=== PATIENT | female | born 1965 | race Caucasian/White ===

== ENCOUNTER → 2017-08-11 | Day surgery (SDC) | payer BC, MEDICARE ==
[~2017-08-11] MED LIST: AMBIEN PO; AMBIEN5 MG PO; CARAFATE; CLONIDINE HCL0.1 MG PO; COREG12.5 MG PO; COREG25 MG PO; CYMBALTA20 MG PO; CYMBALTA30 MG PO; DEXILANT60 MG; DIOVAN160 MG PO; FAMOTIDINE 20 MG/2 ML VIAL IV ONE; FENTANYL CITRATE/PF 100MCG/2 ML INJ ONE; FLEXERIL 10 MG; HYDROCODON-ACE1 EAC9; HYDROCODONE PO; KEFLEX500 MG; KENALOG-1010 MG/1 ML; LIDOCAINE HCL 2% LOCAL INJ 5 ML SDV VIAL INJ ONE; LIPITOR20 MG PO; LOSARTAN PO; LOSARTAN POTASS25 MG PO; LOSARTAN POTASS50 MG PO; METOCLOPRAMIDE HCL 10 MG/2ML VIAL ONE; MIDAZOLAM HCL 2 MG/2 ML VIAL ONE; NORCO 10-325 T1 EACH; NORCO 10-325 T1 EACH PO; OMEPRAZOLE40 MG PO; ONDANSETRON HCL INJ 2 MG/ML VIAL ONE; PANTOPRAZOLE SO40 MG PO; PHENERGAN PO; PHENERGAN25 MG/1 ML; PROMETHAZINE HC50 MG PO; PROPOFOL IV EMULSION 10 MG/ML 20 ML VIAL ONE; PROTONIX PO; PROZAC20 MG PO; SURFAK240 MG; TRICOR145 MG PO; ULTRAM50 MG PO; XANAX0.5 MG PO; XANAX1 MG PO; XANAX2 MG PO; Z.0.AMBIEN5 MG PO; Z.0.COREG6.25 MG PO; Z.0.CYMBALTA60 MG PO; Z.0.DESYREL50 MG PO; Z.0.DIOVAN80 MG PO; Z.0.LASIX20 MG; Z.0.TRICOR145 MG; Z.0.XANAX0.5 MG PO; Z.0.ZEGERID 20 MG1 E PO; ZEGERID; lipitor; losartan
--- OUTSIDE RECORDS SUMMARY | 2017-08-11 08:58 | XMS REPORT | Clinical Summary ---
Author Author [facility] Address Unknown Phone Unavailable Care Team Providers Care Agricultural Specialist Name Role Phone Sadiq Ray MD PCP Allergies Active Allergy Reactions Severity Noted Date Comments Aspirin 04/20/2017 Gabapentin 04/20/2017 Ziprasidone Hcl 04/20/2017 Morphine 04/20/2017 Butorphanol Tartrate 04/20/2017 Ketorolac 04/20/2017 Tramadol 04/20/2017 Current Medications Prescription Sig. Disp. Refills Start End Date Status Date carvedilol (COREG) 25 MG Take 25 mg by mouth 2 Active tablet (two) times a day with meals. omeprazole (PriLOSEC) 40 Take 40 mg by mouth Active MG capsule daily. losartan (COZAAR) 25 MG TK 1 T PO TID 0 02/26/20 Active tablet 17 DULoxetine (CYMBALTA) 60 Take 60 mg by mouth Active MG capsule daily. HYDROcodone-acetaminophen TK 1 T PO Q 8 TO 12 H 0 04/16/20 Active (NORCO) 10-325 mg per PRN P 17 tablet mometasone (NASONEX) 50 2 sprays into each 17 g 12 04/27/20 Active mcg/actuation nasal nostril daily. 17 18 sprayIndications: Chronic otitis media of both ears, Ear pain, right, Chronic seasonal allergic rhinitis, unspecified trigger ciprofloxacin-dexamethaso Administer 4 drops to the 7.5 mL 1 04/20/20 04/30/20 ne (CIPRODEX) 0.3-0.1 % right ear 2 (two) times a 17 17 otic day for 10 days. suspensionIndications: Ear pain, right, Chronic otitis media of both ears Active Problems Problem Noted Date Chronic seasonal allergic rhinitis 04/27/2017 Ear pain, right 04/20/2017 Chronic otitis media of both ears 04/20/2017 Encounters Date Type Specialty Care Team Description 04/27/2017 Office Visit Otolaryngology Arnoldo Corley MD Chronic otitis media of both ears (Primary Dx);Ear pain, right;Chronic seasonal allergic rhinitis, unspecified trigger;Mixed hearing loss, bilateral 04/20/2017 Office Visit Otolaryngology Arnoldo Corley MD Ear pain, right (Primary Dx);Chronic otitis media of both ears after 08/10/2016 Social History Tobacco Use Types Packs/Day Years Used Date Current Every Day Smoker Alcohol Use Drinks/Week oz/Week Comments No Sex Assigned at Date Recorded Not on file Last Filed Vital Signs Vital Sign Reading Time Taken Blood Pressure 120/88 04/27/2017 2:00 PM CDT Pulse 84 04/27/2017 2:00 PM CDT Temperature - - Respiratory Rate - - Oxygen Saturation - - Inhaled Oxygen - - Concentration Weight 122 kg (270 lb) 04/27/2017 2:00 PM CDT Height 177.8 cm (5' 10") 04/27/2017 2:00 PM CDT Body Mass Index 38.74 04/27/2017 2:00 PM CDT Plan of Treatment Health Maintenance Due Date Last Done Comments PAP SMEAR 11/12/1987 COLONOSCOPY 2016 MAMMOGRAM 2016 INFLUENZA VACCINE 02/02/2017 Results Not on fileafter 08/10/2016 Insurance Payer Benefit Subscriber ID Type Phone Address Plan / Group BCBS BCBS [id number] PPO CHOICE PPO/DEJON NESBITT PPO MEDICARE MEDICARE [id number] Medicare [place], [place] [address]
[2017-08-11 10:21] LABS: BASOPHILS % 0.6 % (0.0-1.0); EOSINOPHILS # (AUTO) 0.2 (0.0-0.4); EOSINOPHILS % 2.4 % (0.0-6.0); HEMATOCRIT 43.2 % (34.2-44.1); HEMOGLOBIN 14.4 g/dL (12.0-16.0); LYMPHOCYTES # (AUTO) 1.8 (1.0-3.2); LYMPHOCYTES % 26.8 % (18.0-39.1); MEAN CORPUSCULAR HEMOGLOBIN 28.3 pg (28-32); MEAN CORPUSCULAR HGB CONC 33.3 g/dL (31-35); MEAN CORPUSCULAR VOLUME 84.9 fL (81-99); MONOCYTES # (AUTO) 0.5 (0.2-0.8); MONOCYTES % 7.5 % (4.4-11.3); NEUTROPHILS # (AUTO) 4.2 (2.1-6.9); NEUTROPHILS % 62.3 % (38.7-80.0); PLATELET COUNT 75 x10e3/uL (140-360); RED BLOOD COUNT 5.09 x10e6/uL (3.6-5.1); RED CELL DISTRIBUTION WIDTH 13.1 % (11.7-14.4)
[2017-08-11 10:33] LABS: ANION GAP 12.8 mmol/L (8-16); CALCIUM 8.7 mg/dL (8.4-10.2); CREATININE, SERUM 1.02 mg/dL (0.57-1.11); POTASSIUM 3.8 mmol/L (3.5-5.1)
== END | disposition home or self-care (01) ==
LOC: OR 08:55
PROVIDERS: ATTEND Surgery
DX: K29.70 Gastritis, unspecified, without bleeding (principal); K21.9 Gastro-esophageal reflux disease without esophagitis; E66.01 Morbid (severe) obesity due to excess calories; I10 Essential (primary) hypertension; I69.851 Hemiplegia and hemiparesis following other cerebrovascular disease affecting right dominant side; G89.29 Other chronic pain; F32.9 Major depressive disorder, single episode, unspecified; F41.9 Anxiety disorder, unspecified
CPT/HCPCS: 36415; 43235; 80048; 85025; 93005; J2001; J2250; J2405; J2765; 43239

== ENCOUNTER → 2017-11-25 | Day surgery (SDC) | payer BC, MEDICARE ==
[2017-11-24 12:36] LABS: BASOPHILS # (AUTO) 0.1 (0.0-0.1); BASOPHILS % 0.7 % (0.0-1.0); EOSINOPHILS # (AUTO) 0.2 (0.0-0.4); EOSINOPHILS % 2.4 % (0.0-6.0); HEMATOCRIT 45.8 % (34.2-44.1); HEMOGLOBIN 14.9 g/dL (12.0-16.0); LYMPHOCYTES # (AUTO) 2.5 (1.0-3.2); LYMPHOCYTES % 29.2 % (18.0-39.1); MEAN CORPUSCULAR HEMOGLOBIN 27.3 pg (28-32); MEAN CORPUSCULAR HGB CONC 32.5 g/dL (31-35); MEAN CORPUSCULAR VOLUME 83.9 fL (81-99); MONOCYTES # (AUTO) 0.7 (0.2-0.8); MONOCYTES % 7.9 % (4.4-11.3); NEUTROPHILS # (AUTO) 5.1 (2.1-6.9); NEUTROPHILS % 59.3 % (38.7-80.0); PLATELET COUNT 94 x10e3/uL (140-360); RED BLOOD COUNT 5.46 x10e6/uL (3.6-5.1); RED CELL DISTRIBUTION WIDTH 13.8 % (11.7-14.4)
[2017-11-24 13:19] LABS: ALANINE AMINOTRANSFERASE < 6 IU/L (0-55); ALBUMIN 3.5 g/dL (3.5-5.0); ALBUMIN/GLOBULIN RATIO 1.1 (0.8-2.0); ALKALINE PHOSPHATASE 63 IU/L (40-150); ANION GAP 11.3 mmol/L (8-16); BLOOD UREA NITROGEN 9 mg/dL (7-26); BUN/CREATININE RATIO 8 (6-25); CALCIUM 9.2 mg/dL (8.4-10.2); CARBON DIOXIDE 27 mmol/L (22-29); CHLORIDE 105 mmol/L (98-107); CREATININE, SERUM 1.11 mg/dL (0.57-1.11); EST GLOMERULAR FILTRATION RATE 52 ML/MIN (60-); GLUCOSE 82 mg/dL (74-118); POTASSIUM 4.3 mmol/L (3.5-5.1); SODIUM 139 mmol/L (136-145)
[2017-11-24 13:20] LABS: PROTHROMBIN TIME 12.4 seconds (11.9-14.5)
[~2017-11-25] MED LIST changes: -FAMOTIDINE 20 MG/2 ML VIAL IV ONE; +LACTATED RINGER'S 1,000 ML ONE; -LIDOCAINE HCL 2% LOCAL INJ 5 ML SDV VIAL INJ ONE; -METOCLOPRAMIDE HCL 10 MG/2ML VIAL ONE; -ONDANSETRON HCL INJ 2 MG/ML VIAL ONE; +PROMETHAZINE HCL (IM) 25 MG/ML VIAL ONE; +SODIUM CHLORIDE 0.9% 50ML 50 ML ONE
[2017-11-25 06:21] LABS: BASOPHILS % 0.7 % (0.0-1.0); EOSINOPHILS # (AUTO) 0.1 (0.0-0.4); EOSINOPHILS % 2.4 % (0.0-6.0); HEMATOCRIT 41.2 % (34.2-44.1); HEMOGLOBIN 13.7 g/dL (12.0-16.0); MEAN CORPUSCULAR HEMOGLOBIN 27.9 pg (28-32); MEAN CORPUSCULAR HGB CONC 33.3 g/dL (31-35); MEAN CORPUSCULAR VOLUME 83.9 fL (81-99); MONOCYTES # (AUTO) 0.4 (0.2-0.8); MONOCYTES % 7.7 % (4.4-11.3); NEUTROPHILS # (AUTO) 3.1 (2.1-6.9); NEUTROPHILS % 53.3 % (38.7-80.0); PLATELET COUNT 76 x10e3/uL (140-360); RED BLOOD COUNT 4.91 x10e6/uL (3.6-5.1); RED CELL DISTRIBUTION WIDTH 13.6 % (11.7-14.4)
--- OUTSIDE RECORDS SUMMARY | 2017-11-25 06:45 | XMS REPORT | Clinical Summary ---
Author Author [facility] Organization [facility] Address Unknown Phone Unavailable Care Team Providers Care Production Line Manager Name Role Phone Sadiq Ray MD PCP [...] Chronic otitis media of both ears (Primary Dx); Ear pain, right; Chronic seasonal allergic rhinitis, unspecified trigger; Mixed hearing loss, bilateral 04/20/2017 Office Visit Otolaryngology Arnoldo Corley MD Ear pain, right (Primary Dx); Chronic otitis media of both ears after 11/24/2016 Social History Tobacco Use Types Packs/Day Years [...] Health Maintenance Due Date Last Done Comments CERVICAL CANCER SCREENING 11/12/1987 BREAST CANCER SCREENING 2016 COLON CANCER SCREENING 2016 SHINGRIX VACCINE (#1) 2016 INFLUENZA VACCINE 02/02/2018 Results Not on fileafter 11/24/2016 Insurance Payer Benefit Subscriber ID Type Phone Address Plan / Group BCBS BCBS xxxxxxxxxxxx PPO CHOICE PPO/DEJON [place] EM[employer] PPO MEDICARE MEDICARE xxxxxxxxxx Medicare [place], [place] [address]
== END | disposition home or self-care (01) ==
LOC: OR 06:43
PROVIDERS: ATTEND Internal Medicine Gastroenterology
DX: K21.0 Gastro-esophageal reflux disease with esophagitis (principal); K29.50 Unspecified chronic gastritis without bleeding; K44.9 Diaphragmatic hernia without obstruction or gangrene; K58.9 Irritable bowel syndrome, unspecified; I10 Essential (primary) hypertension; E66.9 Obesity, unspecified; E78.5 Hyperlipidemia, unspecified; G43.909 Migraine, unspecified, not intractable, without status migrainosus; G89.29 Other chronic pain; F32.9 Major depressive disorder, single episode, unspecified; F17.200 Nicotine dependence, unspecified, uncomplicated; F41.9 Anxiety disorder, unspecified; Z88.6 Allergy status to analgesic agent; Z88.8 Allergy status to other drugs, medicaments and biological substances; Z88.5 Allergy status to narcotic agent; Z01.810 Encounter for preprocedural cardiovascular examination; Z01.812 Encounter for preprocedural laboratory examination; Z68.38 Body mass index [BMI] 38.0-38.9, adult; Z87.01 Personal history of pneumonia (recurrent); Z86.73 Personal history of transient ischemic attack (TIA), and cerebral infarction without residual deficits; Z80.0 Family history of malignant neoplasm of digestive organs
CPT/HCPCS: 36415 ×2; 43239; 43249; 80053; 85025 ×2; 85610; 85730; 93005; J2250; J2550; J7120

== ENCOUNTER → 2018-02-17 | Day surgery (SDC) | payer BC, MEDICARE ==
[~2018-02-17] MED LIST changes: +BUPIVACAINE 0.25% 30ML SDV INJ ONE; +IOPAMIDOL 200 MG/ML 20 ML VIAL IT ONE; -LACTATED RINGER'S 1,000 ML ONE; +LIDOCAINE HCL 2% LOCAL INJ 5 ML SDV VIAL INJ ONE; +ONDANSETRON HCL INJ 2 MG/ML VIAL ONE; -PROMETHAZINE HCL (IM) 25 MG/ML VIAL ONE; -SODIUM CHLORIDE 0.9% 50ML 50 ML ONE; +TRIAMCINOLONE ACET 40 MG/ML VIAL ONE
[2018-02-17 06:44] LABS: BASOPHILS # (AUTO) 0.1 (0.0-0.1); BASOPHILS % 0.8 % (0.0-1.0); EOSINOPHILS # (AUTO) 0.2 (0.0-0.4); EOSINOPHILS % 3.2 % (0.0-6.0); HEMATOCRIT 44.8 % (34.2-44.1); HEMOGLOBIN 14.9 g/dL (12.0-16.0); LYMPHOCYTES # (AUTO) 2.1 (1.0-3.2); LYMPHOCYTES % 31.4 % (18.0-39.1); MEAN CORPUSCULAR HEMOGLOBIN 28.1 pg (28-32); MEAN CORPUSCULAR HGB CONC 33.3 g/dL (31-35); MEAN CORPUSCULAR VOLUME 84.4 fL (81-99); MONOCYTES # (AUTO) 0.6 (0.2-0.8); MONOCYTES % 9.3 % (4.4-11.3); NEUTROPHILS # (AUTO) 3.6 (2.1-6.9); NEUTROPHILS % 54.7 % (38.7-80.0); PLATELET COUNT 84 x10e3/uL (140-360); RED BLOOD COUNT 5.31 x10e6/uL (3.6-5.1)
== END | disposition home or self-care (01) ==
LOC: OR 06:11
PROVIDERS: ATTEND Physical Medicine & Rehabilitation Pain Medicine
DX: M70.62 Trochanteric bursitis, left hip (principal); M54.16 Radiculopathy, lumbar region; M54.81 Occipital neuralgia; M19.90 Unspecified osteoarthritis, unspecified site; I10 Essential (primary) hypertension; I34.1 Nonrheumatic mitral (valve) prolapse; E78.5 Hyperlipidemia, unspecified; K25.9 Gastric ulcer, unspecified as acute or chronic, without hemorrhage or perforation; K44.9 Diaphragmatic hernia without obstruction or gangrene; K21.9 Gastro-esophageal reflux disease without esophagitis; K58.9 Irritable bowel syndrome, unspecified; F32.9 Major depressive disorder, single episode, unspecified; F41.9 Anxiety disorder, unspecified; F17.210 Nicotine dependence, cigarettes, uncomplicated; Z88.6 Allergy status to analgesic agent; Z88.8 Allergy status to other drugs, medicaments and biological substances; Z86.73 Personal history of transient ischemic attack (TIA), and cerebral infarction without residual deficits; E66.9 Obesity, unspecified; Z68.34 Body mass index [BMI] 34.0-34.9, adult; Z85.3 Personal history of malignant neoplasm of breast; Z91.81 History of falling
CPT/HCPCS: 20610; 36415; 77002; 85025; J2001; J2250; J2405; J3301; Q9966

== ENCOUNTER → 2018-04-05 | Outpatient (CLI) | payer BC, MEDICARE ==
[~2018-04-05] MED LIST changes: -BUPIVACAINE 0.25% 30ML SDV INJ ONE; -FENTANYL CITRATE/PF 100MCG/2 ML INJ ONE; -IOPAMIDOL 200 MG/ML 20 ML VIAL IT ONE; -LIDOCAINE HCL 2% LOCAL INJ 5 ML SDV VIAL INJ ONE; -MIDAZOLAM HCL 2 MG/2 ML VIAL ONE; -ONDANSETRON HCL INJ 2 MG/ML VIAL ONE; -PROPOFOL IV EMULSION 10 MG/ML 20 ML VIAL ONE; -TRIAMCINOLONE ACET 40 MG/ML VIAL ONE
--- NOTE | 2018-04-05 10:43 | Diagnostic Imaging Report ---
EXAMINATION: MRI of the lumbar spine without contrast HISTORY: Low back pain, status post fall 3 days ago COMPARISON: None. TECHNIQUE: Sagittal T1, T2, STIR; axial T2 and proton density. FINDINGS: It is assumed that there are 5 lumbar vertebrae. Curvature/Alignment: Normal lordosis. Vertebrae: No evidence of recent fracture, infection, or neoplasm. Conus: Normal, terminating at T12-L1 Cauda equina: Unremarkable. Lower thoracic: Unremarkable. Paraspinal soft tissues: Unremarkable. Degenerative changes: L1-L2: Unremarkable. L2-L3: Mild asymmetric to the left disc bulge with tiny 2 mm AP diameter left subarticular disc protrusion and facet arthrosis. Partial effacement of the left lateral recess and possible displacement of the traversing left L3 nerve root without definite compression. L3-L4: Symmetric disc bulge with a small 3 mm AP diameter central disc protrusion, ligamenta flava thickening and facet arthrosis. Mild spinal canal and moderate foraminal stenoses. L4-L5: Asymmetric to the left disc bulge, approximately 5 mm AP diameter central and left subarticular disc protrusion flattens the ventral thecal sac and effaces the left lateral recess, with probable displacement of the traversing left L5 nerve root. Bilateral facet arthrosis. Moderate left and mild right foraminal stenosis. L5-S1: Mild symmetric disc bulge, ligamenta flava thickening and moderate facet arthrosis. Mild spinal canal and moderate foraminal stenoses worse on the right. Sacroiliac joints: Unremarkable. IMPRESSION: 1. No acute lumbar spine posttraumatic abnormalities. 2. Effacement of the left lateral recess at L2-L3 and L4-L5 due to degenerative changes and small disc protrusion. 3. Mild spinal canal and moderate foraminal stenoses at L3-L4 as described. 4. Moderate degenerative foraminal stenosis on the left at L4-L5 and bilaterally at L5-S1. Signed by: Dr. Dianelsy Patel M.D. on 04/05/2018 10:40 AM
--- NOTE | 2018-04-05 15:17 | Diagnostic Imaging Report ---
MRI of the left hip without contrast. History: Hip pain. Fall. Decreased range of motion. Technique: Multiplanar multisequence MRI of the hip without contrast. Comparison: None Findings: There is no acute fracture, subluxation or avascular necrosis. Scattered degenerative changes are seen about the visualized lower lumbar spine and pelvis. There is mild degenerative arthrosis in the left hip joint with thinning of the articular cartilage at the superior lateral acetabulum and adjacent femoral head. There is degeneration and fraying of the labrum. There is a physiologic amount of fluid in the hip joint. The remainder the visualized ligaments and tendons about the hip are intact. There is no evidence to suggest greater trochanteric bursitis. The visualized muscles are normal in size, signal intensity and morphology. No ligamentous or tendon tear is seen. The visualized neurovascular bundles are intact. There may be a left ovary in the left upper pelvis with possible follicles. This is best seen on coronal series 3 image 18 through 22. Correlate with surgical history. 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 No acute fracture, subluxation or avascular necrosis. Signed by: Dr. Mango Price M.D. on 04/05/2018 3:14 PM
== END ==
LOC: MRI 07:46
PROVIDERS: ATTEND Family Medicine
DX: M25.552 Pain in left hip (principal); M54.07 Panniculitis affecting regions of neck and back, lumbosacral region
CPT/HCPCS: 72148

== ENCOUNTER → 2018-07-28 | Day surgery (SDC) | payer BC, MEDICARE ==
[~2018-07-28] MED LIST changes: +BUPIVACAINE 0.25% 30ML SDV INJ ONE; +IOPAMIDOL 200 MG/ML 20 ML VIAL IT ONE; +LIDOCAINE HCL 1% 30ML-PF VIAL ONE; +PROPOFOL IV EMULSION 10 MG/ML 20 ML VIAL ONE; +TRIAMCINOLONE ACET 40 MG/ML VIAL ONE
--- OUTSIDE RECORDS SUMMARY | 2018-07-28 06:02 | XMS REPORT | Clinical Summary ---
Author Author [facility] Organization [facility] Address Unknown Phone Unavailable Care Team Providers Care Precision Instrument And Tool Maker Name Role Phone Sadiq Ray MD PCP Allergies Comments Active Allergy Reactions Severity Noted Date Aspirin 04/20/2017 Gabapentin 04/20/2017 Ziprasidone Hcl 04/20/2017 Morphine 04/20/2017 Butorphanol Tartrate 04/20/2017 Ketorolac 04/20/2017 Tramadol 04/20/2017 Medications End Date Status Medication Sig Dispensed Refills Start Date Active carvedilol (COREG) 25 MG Take 25 mg by 0 tablet mouth 2 (two) times a day with meals. Active omeprazole (PriLOSEC) 40 Take 40 mg by 0 MG capsule mouth daily. Active losartan (COZAAR) 25 MG TK 1 T PO TID 0 tablet 7 Active DULoxetine (CYMBALTA) 60 Take 60 mg by 0 MG capsule mouth daily. Active HYDROcodone-acetaminophen TK 1 T PO Q 0 (NORCO) 10-325 mg per 8 TO 12 H PRN 7 tablet P 04/27/2018 mometasone (NASONEX) 50 2 sprays into 17 g 12 mcg/actuation nasal each nostril 7 sprayIndications: Chronic daily. otitis media of both ears, Ear pain, right, Chronic seasonal allergic rhinitis, unspecified trigger Active Problems Problem Noted Date Chronic seasonal allergic rhinitis 04/27/2017 Ear pain, right 04/20/2017 Chronic otitis media of both ears 04/20/2017 Social History Date Tobacco Use Types Packs/Day Years Used Current Every Day Smoker Alcohol Use Drinks/Week oz/Week Comments No Sex Assigned at Date Recorded Not on file Industry Job Start Date Occupation Not on file Not on file Not on file Travel End Travel History Travel Start No recent travel history available. Last Filed Vital Signs Not on file Plan of Treatment Health Maintenance Due Date Last Done Comments CERVICAL CANCER SCREENING 11/12/1987 BREAST CANCER SCREENING 2016 COLON CANCER SCREENING 2016 SHINGLES VACCINES (1 of 2016 2) INFLUENZA VACCINE 02/02/2018 Results Not on fileafter 07/27/2017 Insurance Payer Benefit Subscriber ID Type Phone Address Plan / Group BCBS BCBS xxxxxxxxxxxx PPO CHOICE PPO/FEDERA L EMPL PPO MEDICARE MEDICARE xxxxxxxxxx Medicare [place], [place] PART A AND B Advance Directives Patient has advance care planning documents on file. For more information, j luis grace contact: Usman Muhammad [address] [place] [address]
--- OUTSIDE RECORDS SUMMARY | 2018-07-28 06:02 | XMS REPORT ---
Author Author [facility] Address Unknown Phone Unavailable Care Team Providers Care Dairy Department Manager Name Role Phone Urvashi BENITES JUJU Unavailable Unavailable Payers Payer Name Policy Type Policy Number Effective Date Expiration Date Problems This patient has no known problems. Allergies, Adverse Reactions, Alerts Allergy Name Allergy Type Status Severity Reaction(s) Onset Date Inactive Date Treating Clinician Comments amitriptyline HCl DA Active LA 2018-04-12 00:00:00 ketorolac tromethamine DA Active LA 2018-04-12 00:00:00 ziprasidone mesylate DA Active SV 2018-04-12 00:00:00 NSAIDS (Non-Steroidal Anti-Inflamma DA Active SV 2018-04-12 00:00:00 morphine DA Active SV 2018-04-12 00:00:00 aspirin DA Active SV 2018-04-12 00:00:00 tramadol DA Active MO 2018-04-12 00:00:00 butorphanol DA Active U 2018-04-12 00:00:00 amitriptyline HCl DA Active LA 2018-04-03 00:00:00 ketorolac tromethamine DA Active LA 2018-04-03 00:00:00 ziprasidone mesylate DA Active SV 2018-04-03 00:00:00 NSAIDS (Non-Steroidal Anti-Inflamma DA Active SV 2018-04-03 00:00:00 morphine DA Active SV 2018-04-03 00:00:00 aspirin DA Active SV 2018-04-03 00:00:00 tramadol DA Active MO 2018-04-03 00:00:00 butorphanol DA Active U 2018-04-03 00:00:00 amitriptyline HCl DA Active LA 2016-12-16 00:00:00 ketorolac tromethamine DA Active LA 2016-12-16 00:00:00 ziprasidone mesylate DA Active SV 2016-12-16 00:00:00 NSAIDS (Non-Steroidal Anti-Inflamma DA Active SV 2016-12-16 00:00:00 morphine DA Active SV 2016-12-16 00:00:00 aspirin DA Active SV 2016-12-16 00:00:00 tramadol DA Active MO 2016-12-16 00:00:00 butorphanol DA Active U 2016-12-16 00:00:00 Medications This patient has no known medications. Results Test Description Test Time Test Comments Text Results Atomic Results Result Comments MRI HIP LEFT WO 2018-04-05 15:08:00 [place] [address] Patient Name: AVIVA ASHBY MR #: [id number] : 1965 Age/Sex: 52/F Req #: [id number] Adm Physician: Ordered by: JUJU BENITES MD Report #: [id number] Location: MRI Room/Bed: Procedure: [id number] MRI/MRI HIP LEFT WO Exam Date: Exam Time: REPORT STATUS: Signed MRI of the left hip without contrast. History: Hip pain. Fall. Decreased range of motion. Technique: Multiplanar multisequence MRI of the hip without contrast. Comparison: None Findings: There is no acute fracture, subluxation or avascular necrosis. Scattered degenerative changes are seen about the visualized lower lumbar spine and pelvis. There is mild degenerative arthrosis in the left hip joint with thinning of the articular cartilage at the superior lateral acetabulum and adjacent femoral head. There is degeneration and fraying of the labrum. There is a physiologic amount of fluid in the hip joint. The remainder the visualized ligaments and tendons about the hip are intact. There is no evidence to suggest greater trochanteric bursitis. The visualized muscles are normal in size, signal intensity and morphology. No ligamentous or tendon tear is seen. The visualized neurovascular bundles are intact. There may be a left ovary in the left upper pelvis with possible follicles. This is best seen on coronal series 3 image 18 through 22. Correlate with surgical history. 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 No acute fracture, subluxation or avascular necrosis. Signed by: Dr. Mango Price M.D. on 04/05/2018 3:14 PM Dictated By: MANGO PRICE MD, MD 13 Transcribed By: VIKRAM on 04/05/181 COPY TO: JUJU BENITES MD MRI SPINE LUMBAR WO 2018-04-05 10:33:00 [place] [address] Patient Name: AVIVA ASHBY MR #: [id number] : 1965 Age/Sex: 52/F Req #: [id number] Adm Physician: Ordered by: JUJU BENITES MD Report #: [id number] Location: MRI Room/Bed: Procedure: [id number] MRI/MRI SPINE LUMBAR WO Exam Date: Exam Time: REPORT STATUS: Signed EXAMINATION: MRI of the lumbar spine without contrast HISTORY: Low back pain, status post fall 3 days ago COMPARISON: None. TECHNIQUE: Sagittal T1, T2, STIR; axial T2 and proton density. FINDINGS: It is assumed that there are 5 lumbar vertebrae. Curvature/Alignment: Normal lordosis. Vertebrae: No evidence of recent fracture, infection, or neoplasm. Conus: Normal, terminating at T12-L1 Cauda equina: Unremarkable. Lower thoracic: Unremarkable. Paraspinal soft tissues: Unremarkable. Degenerative changes: L1-L2: Unremarkable. L2-L3: Mild asymmetric to the left disc bulge with tiny 2 mm AP diameter left subarticular disc protrusion and facet arthrosis. Partial effacement of the left lateral recess and possible displacement of the traversing left L3 nerve root without definite compression. L3-L4: Symmetric disc bulge with a small 3 mm AP diameter central disc protrusion, ligamenta flava thickening and facet arthrosis. Mild spinal canal and moderate foraminal stenoses. L4-L5: Asymmetric to the left disc bulge, approximately 5 mm AP diameter central and left subarticular disc protrusion flattens the ventral thecal sac and effaces the left lateral recess, with probable displacement of the traversing left L5 nerve root. Bilateral facet arthrosis. Moderate left and mild right foraminal stenosis. L5-S1: Mild symmetric disc bulge, ligamenta flava thickening and moderate facet arthrosis. Mild spinal canal and moderate foraminal stenoses worse on the right. Sacroiliac joints: Unremarkable. IMPRESSION: 1. No acute lumbar spine posttraumatic abnormalities. 2. Effacement of the left lateral recess at L2-L3 and L4-L5 due to degenerative changes and small disc protrusion. 3. Mild spinal canal and moderate foraminal stenoses at L3-L4 as described. 4. Moderate degenerative foraminal stenosis on the left at L4-L5 and bilaterally at L5-S1. Signed by: Dr. Luis Patel M.D. on 04/05/2018 10:40 AM Dictated By: LUIS PATEL MD [id number] Transcribed By: VIKRAM on 04/05/18 1040 COPY TO: JUJU BENITES MD
[2018-07-28 07:16] LABS: BASOPHILS # (AUTO) 0.1 (0.0-0.1); BASOPHILS % 0.8 % (0.0-1.0); EOSINOPHILS # (AUTO) 0.2 (0.0-0.4); LYMPHOCYTES # (AUTO) 2.4 (1.0-3.2); LYMPHOCYTES % 30.7 % (18.0-39.1); MEAN CORPUSCULAR HEMOGLOBIN 28.5 pg (28-32); MEAN CORPUSCULAR HGB CONC 33.3 g/dL (31-35); MEAN CORPUSCULAR VOLUME 85.6 fL (81-99); MONOCYTES # (AUTO) 0.7 (0.2-0.8); MONOCYTES % 8.7 % (4.4-11.3); NEUTROPHILS # (AUTO) 4.4 (2.1-6.9); NEUTROPHILS % 56.3 % (38.7-80.0); PLATELET COUNT 89 x10e3/uL (140-360); RED BLOOD COUNT 5.26 x10e6/uL (3.6-5.1); RED CELL DISTRIBUTION WIDTH 13.1 % (11.7-14.4)
[2018-07-28 08:46] VITALS: BP 101/66
== END | disposition home or self-care (01) ==
LOC: OR 05:58
PROVIDERS: ATTEND Physical Medicine & Rehabilitation Pain Medicine
DX: M70.62 Trochanteric bursitis, left hip (principal); M47.26 Other spondylosis with radiculopathy, lumbar region; M54.81 Occipital neuralgia; I10 Essential (primary) hypertension; F17.210 Nicotine dependence, cigarettes, uncomplicated; Z88.6 Allergy status to analgesic agent; Z88.8 Allergy status to other drugs, medicaments and biological substances; Z86.73 Personal history of transient ischemic attack (TIA), and cerebral infarction without residual deficits; Z85.3 Personal history of malignant neoplasm of breast; Z91.81 History of falling
CPT/HCPCS: 20610; 36415; 85025; 93005; J2001; J2704; J3301; Q9967

== ENCOUNTER → 2018-11-22 | Outpatient (CLI) | payer BC, MEDICARE ==
[~2018-11-22] MED LIST changes: -BUPIVACAINE 0.25% 30ML SDV INJ ONE; -IOPAMIDOL 200 MG/ML 20 ML VIAL IT ONE; -LIDOCAINE HCL 1% 30ML-PF VIAL ONE; -PROPOFOL IV EMULSION 10 MG/ML 20 ML VIAL ONE; -TRIAMCINOLONE ACET 40 MG/ML VIAL ONE
== END ==
LOC: MAMMO 13:52
PROVIDERS: ATTEND Obstetrics & Gynecology
DX: Z12.31 Encounter for screening mammogram for malignant neoplasm of breast (principal)
CPT/HCPCS: 77067

== ENCOUNTER → 2018-11-24 | Outpatient (CLI) | payer BC, MEDICARE ==
--- NOTE | 2018-11-25 07:08 | Diagnostic Imaging Report ---
EXAMINATION: Transvaginal ultrasound. CLINICAL INDICATION: Enlarged ovary COMPARISON: CT abdomen and pelvis with contrast 08/06/2015 DISCUSSION: Transverse and sagittal transvaginal images were obtained of the pelvis with supplemental transabdominal images. The uterus has been removed. The right ovary is not identified. The left ovary is normal in size and measures 2.8 x 2 x 2.3 cm. Arterial and venous waveforms are identified by color Doppler and spectral waveform analysis. No free fluid or pelvic masses are seen. IMPRESSION: Status post hysterectomy with nonvisualization of the right ovary, possibly due to concomitant oophorectomy. Unremarkable sonographic appearance of the left ovary. Signed by: Dr. Fly Lewis M.D. on 11/25/2018 7:05 AM
== END ==
LOC: US 16:31
PROVIDERS: ATTEND Surgery
DX: R10.2 Pelvic and perineal pain (principal); N83.8 Other noninflammatory disorders of ovary, fallopian tube and broad ligament
CPT/HCPCS: 76830

== ENCOUNTER → 2018-12-01 | Day surgery (SDC) | payer BC, MEDICARE ==
[~2018-12-01] MED LIST changes: +DEXAMETHASONE SOD PHOS 10 MG/1 ML VIAL ONE; +FENTANYL CITRATE/PF 100MCG/2 ML INJ ONE; +IOPAMIDOL 200 MG/ML 20 ML VIAL IT ONE; +LIDOCAINE HCL 1% 30ML-PF VIAL ONE; +LIDOCAINE HCL 2% LOCAL INJ 5 ML SDV VIAL INJ ONE; +MIDAZOLAM HCL 2 MG/2 ML VIAL ONE; +ONDANSETRON HCL INJ 2MG/ML 2ML 2 MG/ML VIAL ONE; +PROPOFOL IV EMULSION 10 MG/ML 20 ML VIAL ONE
--- OUTSIDE RECORDS SUMMARY | 2018-12-01 05:20 | XMS REPORT | Clinical Summary ---
Author Author [facility] Address Unknown Phone Unavailable Care Team Providers Care Roads Supervisor Name Role Phone Sadiq Ray MD PCP [...] right, Chronic seasonal allergic rhinitis, unspecified trigger 10/26/2018 ofloxacin (FLOXIN) 0.3 % Administer 5 10 mL 0 otic solution drops into 9 the left ear daily for 7 days. Active Problems Problem Noted Date Chronic seasonal allergic rhinitis 04/27/2017 Ear pain, right 04/20/2017 Chronic otitis media of both ears 04/20/2017 Encounters Care Team Description Date Type Specialty Arnoldo Corley MD Ear pain, right (Primary Dx); Chronic otitis media of both ears 10/19/2018 Office Visit Otolaryngology after 11/30/2017 Social History Date Tobacco Use Types Packs/Day Years Used Current Every Day Smoker Smokeless Tobacco: Never Used Alcohol Use Drinks/Week oz/Week Comments No Sex Assigned at Date Recorded Not on file Industry Job Start Date Occupation Not on file Not on file Not on file Travel End Travel History Travel Start No recent travel history available. Last Filed Vital Signs Time Taken Vital Sign Reading - Blood Pressure - - Pulse - - Temperature - - Respiratory Rate - - Oxygen Saturation - - Inhaled Oxygen - Concentration 10/19/2018 3:15 PM CDT Weight 128 kg (283 lb) 10/19/2018 3:15 PM CDT Height 177.8 cm (5' 10") 10/19/2018 3:15 PM CDT Body Mass Index 40.61 Plan of Treatment Health Maintenance Due Date Last Done Comments BREAST CANCER SCREENING 2016 COLON CANCER SCREENING 2016 SHINGLES VACCINES (#1) 2016 INFLUENZA VACCINE 02/02/2019 Results Not on fileafter 11/30/2017 Insurance Type Payer Benefit Subscriber ID Effective Phone Address Plan / Dates Group PPO BCBS BCBS xxxxxxxxxxxx 2015- CHOICE Present PPO/DEJON NESBITT PPO Medicare MEDICARE MEDICARE xxxxxxxxxxx 2009-P [place], [place] B Advance Directives Patient has advance care planning documents on file. For more information, j luis e contact: Usman Muhammad [address] [place] [address]
[2018-12-01 06:13] LABS: BASOPHILS # (AUTO) 0.1 (0.0-0.1); BASOPHILS % 0.6 % (0.0-1.0); EOSINOPHILS # (AUTO) 0.2 (0.0-0.4); EOSINOPHILS % 2.1 % (0.0-6.0); HEMATOCRIT 43.8 % (34.2-44.1); HEMOGLOBIN 14.5 g/dL (12.0-16.0); LYMPHOCYTES # (AUTO) 2.5 (1.0-3.2); LYMPHOCYTES % 28.6 % (18.0-39.1); MEAN CORPUSCULAR HEMOGLOBIN 28.5 pg (28-32); MEAN CORPUSCULAR HGB CONC 33.1 g/dL (31-35); MEAN CORPUSCULAR VOLUME 86.2 fL (81-99); MONOCYTES # (AUTO) 0.7 (0.2-0.8); MONOCYTES % 7.8 % (4.4-11.3); NEUTROPHILS # (AUTO) 5.2 (2.1-6.9); NEUTROPHILS % 60.3 % (38.7-80.0); PLATELET COUNT 96 x10e3/uL (140-360); RED BLOOD COUNT 5.08 x10e6/uL (3.6-5.1); RED CELL DISTRIBUTION WIDTH 13.3 % (11.7-14.4)
[2018-12-01 07:25] VITALS: BP 111/63
== END | disposition home or self-care (01) ==
LOC: OR 05:17
PROVIDERS: ATTEND Physical Medicine & Rehabilitation Pain Medicine
DX: M47.26 Other spondylosis with radiculopathy, lumbar region (principal); M25.552 Pain in left hip; M54.81 Occipital neuralgia; Z91.81 History of falling; I10 Essential (primary) hypertension; I34.1 Nonrheumatic mitral (valve) prolapse; E66.01 Morbid (severe) obesity due to excess calories; K21.9 Gastro-esophageal reflux disease without esophagitis; K58.9 Irritable bowel syndrome, unspecified; I44.0 Atrioventricular block, first degree; F41.9 Anxiety disorder, unspecified; F32.9 Major depressive disorder, single episode, unspecified; Z72.0 Tobacco use; Z88.6 Allergy status to analgesic agent; Z88.8 Allergy status to other drugs, medicaments and biological substances; Z86.73 Personal history of transient ischemic attack (TIA), and cerebral infarction without residual deficits; Z85.3 Personal history of malignant neoplasm of breast
CPT/HCPCS: 36415; 77003; 85025; 93005; J1100; J2001; J2250; J2405; Q9967

== ENCOUNTER → 2019-04-05 | Day surgery (SDC) | payer BC, MEDICARE ==
[~2019-04-05] MED LIST changes: +BUPIVACAINE 0.25% 30ML SDV INJ ONE; -DEXAMETHASONE SOD PHOS 10 MG/1 ML VIAL ONE; -FENTANYL CITRATE/PF 100MCG/2 ML INJ ONE; -ONDANSETRON HCL INJ 2MG/ML 2ML 2 MG/ML VIAL ONE; +TRIAMCINOLONE ACET 40 MG/ML VIAL ONE
[2019-04-05 07:45] LABS: BASOPHILS # (AUTO) 0.1 (0.0-0.1); BASOPHILS % 0.6 % (0.0-1.0); EOSINOPHILS # (AUTO) 0.3 (0.0-0.4); EOSINOPHILS % 3.9 % (0.0-6.0); HEMATOCRIT 47.9 % (34.2-44.1); HEMOGLOBIN 16.2 g/dL (12.0-16.0); LYMPHOCYTES # (AUTO) 2.7 (1.0-3.2); LYMPHOCYTES % 33.6 % (18.0-39.1); MEAN CORPUSCULAR HEMOGLOBIN 28.3 pg (28-32); MEAN CORPUSCULAR HGB CONC 33.8 g/dL (31-35); MEAN CORPUSCULAR VOLUME 83.7 fL (81-99); MONOCYTES # (AUTO) 0.6 (0.2-0.8); MONOCYTES % 7.5 % (4.4-11.3); NEUTROPHILS # (AUTO) 4.4 (2.1-6.9); PLATELET COUNT 110 x10e3/uL (140-360); RED BLOOD COUNT 5.72 x10e6/uL (3.6-5.1); RED CELL DISTRIBUTION WIDTH 13.5 % (11.7-14.4)
[2019-04-05 09:50] VITALS: BP 110/70
[2019-04-05 11:13] LABS: EOSINOPHILS % (MANUAL) 2 % (0-7); LYMPHOCYTES % (MANUAL) 42 % (19-48); METAMYELOCYTES % (MANUAL) 2 % (0-0); MONOCYTES % (MANUAL) 6 % (3.4-9.0); NEUTROPHILS % (MANUAL) 45 % (40-74)
[2019-04-05 11:14] LABS: PLATELET ESTIMATE SLIGHTLY DECREASED; PLATELET MORPHOLOGY COMMENT FEW LARGE; RBC MORPHOLOGY COMMENT NORMAL
== END | disposition home or self-care (01) ==
LOC: OR 07:10
PROVIDERS: ATTEND Physical Medicine & Rehabilitation Pain Medicine
DX: M25.552 Pain in left hip (principal); M70.62 Trochanteric bursitis, left hip; M54.16 Radiculopathy, lumbar region; K21.9 Gastro-esophageal reflux disease without esophagitis; I10 Essential (primary) hypertension; Z01.812 Encounter for preprocedural laboratory examination
CPT/HCPCS: 20610; 36415; 77003; 85025; J2001 ×2; J2250; J2704; J3301; Q9967; 76000

== ENCOUNTER → 2019-09-14 | Day surgery (SDC) | payer BC, MEDICARE ==
[~2019-09-14] MED LIST changes: +FENTANYL CITRATE/PF 100MCG/2 ML INJ ONE; -LIDOCAINE HCL 2% LOCAL INJ 5 ML SDV VIAL INJ ONE; +ONDANSETRON HCL INJ 2MG/ML 2ML 2 MG/ML VIAL ONE
[2019-09-14 06:16] LABS: BASOPHILS # (AUTO) 0.1 (0.0-0.1); BASOPHILS % 0.9 % (0.0-1.0); EOSINOPHILS # (AUTO) 0.3 (0.0-0.4); EOSINOPHILS % 4.2 % (0.0-6.0); HEMATOCRIT 47.5 % (34.2-44.1); LYMPHOCYTES # (AUTO) 2.5 (1.0-3.2); LYMPHOCYTES % 37.2 % (18.0-39.1); MEAN CORPUSCULAR HEMOGLOBIN 28.6 pg (28-32); MEAN CORPUSCULAR HGB CONC 33.7 g/dL (31-35); MONOCYTES # (AUTO) 0.6 (0.2-0.8); MONOCYTES % 8.7 % (4.4-11.3); NEUTROPHILS # (AUTO) 3.3 (2.1-6.9); NEUTROPHILS % 48.7 % (38.7-80.0); PLATELET COUNT 101 x10e3/uL (140-360); RED BLOOD COUNT 5.59 x10e6/uL (3.6-5.1); RED CELL DISTRIBUTION WIDTH 13.1 % (11.7-14.4)
[2019-09-14 07:25] VITALS: BP 112/77
== END | disposition home or self-care (01) ==
LOC: OR 05:35
PROVIDERS: ATTEND Physical Medicine & Rehabilitation Pain Medicine
DX: M70.62 Trochanteric bursitis, left hip (principal); M54.16 Radiculopathy, lumbar region; M54.81 Occipital neuralgia; I10 Essential (primary) hypertension; Z79.82 Long term (current) use of aspirin; I44.30 Unspecified atrioventricular block; Z91.81 History of falling; Z88.6 Allergy status to analgesic agent
CPT/HCPCS: 36415; 76000; 85025; 93005; J2001; J2250; J2405; J3010; J3301; Q9967

== ENCOUNTER → 2019-11-30 | Day surgery (SDC) | payer BC, MEDICARE, OTHER ==
[2019-11-25 12:08] LABS: BASOPHILS % 0.6 % (0.0-1.0); EOSINOPHILS # (AUTO) 0.2 (0.0-0.4); EOSINOPHILS % 3.2 % (0.0-6.0); HEMATOCRIT 47.3 % (34.2-44.1); HEMOGLOBIN 15.2 g/dL (12.0-16.0); LYMPHOCYTES # (AUTO) 2.1 (1.0-3.2); LYMPHOCYTES % 33.5 % (18.0-39.1); MEAN CORPUSCULAR HEMOGLOBIN 27.5 pg (28-32); MEAN CORPUSCULAR HGB CONC 32.1 g/dL (31-35); MEAN CORPUSCULAR VOLUME 85.7 fL (81-99); MONOCYTES # (AUTO) 0.5 (0.2-0.8); MONOCYTES % 8.8 % (4.4-11.3); NEUTROPHILS # (AUTO) 3.3 (2.1-6.9); NEUTROPHILS % 53.6 % (38.7-80.0); PLATELET COUNT 102 x10e3/uL (140-360); RED BLOOD COUNT 5.52 x10e6/uL (3.6-5.1); RED CELL DISTRIBUTION WIDTH 13.3 % (11.7-14.4)
[2019-11-25 20:51] LABS: PLATELET ESTIMATE SLIGHTLY DECREASED; PLATELET MORPHOLOGY COMMENT FEW LARGE; RBC MORPHOLOGY COMMENT NORMAL
[~2019-11-30] MED LIST changes: +ALPRAZOLAM1 MG PO; -BUPIVACAINE 0.25% 30ML SDV INJ ONE; +CARVEDILOL12.5 MG PO; +CYCLOBENZAPRINE5 MG PO; +DICYCLOMINE HCL10 MG PO; -FENTANYL CITRATE/PF 100MCG/2 ML INJ ONE; -IOPAMIDOL 200 MG/ML 20 ML VIAL IT ONE; -LIDOCAINE HCL 1% 30ML-PF VIAL ONE; -MIDAZOLAM HCL 2 MG/2 ML VIAL ONE; -ONDANSETRON HCL INJ 2MG/ML 2ML 2 MG/ML VIAL ONE; +PHENERGAN25 MG/1 M1 PO; -TRIAMCINOLONE ACET 40 MG/ML VIAL ONE
[2019-11-30 08:45] VITALS: BP 121/89
== END | disposition home or self-care (01) ==
LOC: OR 06:15 → MERGE 09:00
PROVIDERS: ATTEND Internal Medicine Gastroenterology
DX: K29.50 Unspecified chronic gastritis without bleeding (principal); K44.9 Diaphragmatic hernia without obstruction or gangrene; R13.10 Dysphagia, unspecified; K58.9 Irritable bowel syndrome, unspecified; Z98.890 Other specified postprocedural states; I10 Essential (primary) hypertension; F32.9 Major depressive disorder, single episode, unspecified; Z88.8 Allergy status to other drugs, medicaments and biological substances; Z88.6 Allergy status to analgesic agent; Z91.041 Radiographic dye allergy status; Z01.812 Encounter for preprocedural laboratory examination; Z11.59 Encounter for screening for other viral diseases; Z86.73 Personal history of transient ischemic attack (TIA), and cerebral infarction without residual deficits; Z80.0 Family history of malignant neoplasm of digestive organs; Z83.71 Family history of colonic polyps
CPT/HCPCS: 36415; 43239; 43248; 85025; 87635; J2704

== ENCOUNTER 2019-12-16 14:13 | Emergency (ER) | payer BC, MEDICARE ==
[~2019-12-16] VITALS: Ht 177.8 cm; Wt 113.9 kg
[~2019-12-16 14:13] MED LIST changes: -PROPOFOL IV EMULSION 10 MG/ML 20 ML VIAL ONE
[2019-12-16] MEDS ORDERED: MORPHINE SULFATE INJ 4 MG/ML INJ 1ML IV STA (14:17)
--- NOTE | 2019-12-16 14:21 | Emergency Department Note ---
History of Present Illnes History of Present Illness Chief Complaint: Chest Pain History of Present Illness This is a 54 year old female . Historian: Patient, Extrusion Technician/EMS Arrival Mode: [facility] REHAB DEPARTMENT MANAGER: EKG, See EMS Report Onset (how long ago): day(s) Location: substernal chest pain Radiation: Reports non-radiation Severity: moderate Duration (how long): day(s) (3) Timing of current episode: constant Progression: worsening Chronicity: new Relieving factors: none Exacerbating factors: none Associated symptoms: Reports chest pain, Reports shortness of breath Treatments prior to arrival: none Past Medical/Family History Physician Review I have reviewed the patient's past medical and family history. Any updates have been documented here. Past Medical History Recent Fever: No Clinical Suspicion of Infectio: No New/Unexplained Change in Ment: No Past Medical History: Hypertension, Anxiety, Chronic Back Pain Other Medical History: high cholesterol mitral valve prolaspe spinal decompression smokes 1 1/2 ppd Past Surgical History: Cholecysctectomy, Hysterectomy, Hernia Repair, Back Surgery Other Surgery: hernia repair gastric sleeve bowel resection Social History Smoking Cessation: Never Smoker Alcohol Use: None Any Illegal Drug Use: No Other Last Tetanus: utd Review of Systems Review of Systems Constitutional: Reports no symptoms EENTM: Reports no symptoms Cardiovascular: Reports chest pain Respiratory: Reports dyspnea Gastrointestinal: Reports no symptoms Genitourinary: Reports no symptoms Musculoskeletal: Reports no symptoms Integumentary: Reports no symptoms Neurological: Reports no symptoms Psychological: Reports no symptoms Endocrine: Reports no symptoms Hematological/Lymphatic: Reports no symptoms Physical Exam Related Data Allergies: Coded Allergies: morphine (Verified Allergy, Severe, RESP. DISTRESS, 04/28/16) amitriptyline (Verified Allergy, Mild, RASH,SOB, 04/28/16) butorphanol (Verified Allergy, Mild, RASH, 04/28/16) ketorolac (Verified Allergy, Mild, RASH, 04/28/16) ziprasidone (Verified Allergy, Mild, ANXIETY, 04/28/16) butorphanol tartrate (Verified Allergy, Unknown, 04/28/16) gabapentin (Verified Allergy, Unknown, 11/23/19) iodine (Verified Allergy, Unknown, RASH, 11/30/19) trazodone (Verified Allergy, Unknown, INCREASED HR, 11/17/16) aspirin (Verified Adverse Reaction, Mild, PT HAS ITP ALREADY, 04/28/16) Triage Vital Signs Vital Signs Date Time Temp Pulse Resp B/P (MAP) Pulse Ox O2 Delivery O2 Flow Rate FiO2 12/16/19 14:16 98.7 81 18 132/97 100 Physical Exam CONSTITUTIONAL Constitutional: Present well-developed, Present well-nourished HENT HENT: Present normocephalic, Present atraumatic, Present oropharynx clear/moist, Present nose normal HENT L/R: Present left ext ear normal, Present right ext ear normal EYES Eyes: Reports PERRL, Reports conjunctivae normal NECK Neck: Present ROM normal PULMONARY Pulmonary: Present effort normal, Present breath sounds normal CARDIOVASCULAR Cardiovascular: Present regular rhythm, Present heart sounds normal, Present capillary refill normal, Present normal rate GASTROINTESTINAL Abdominal: Present soft, Present nontender, Present bowel sounds normal GENITOURINARY Genitourinary: Present exam deferred SKIN Skin: Present warm, Present dry MUSCULOSKELETAL Musculoskeletal: Present ROM normal NEUROLOGICAL Neurological: Present alert, Present oriented x 3, Present no gross motor or sensory deficits PSYCHOLOGICAL Psychological: Present mood/affect normal, Present judgement normal Results Laboratory Lab results reviewed: Yes Laboratory comments CBC : wnl CMP : wnl troponin: neg D-Dimer : neg Imaging Imaging results reviewed: Yes Impressions [place] [address] Patient Name: AVIVA ALEMAN MR #: [id number] : 1965 Age/Sex: 54/F Req #: [id number] Adm Physician: Ordered by: TEENA COBIAN DO Report #: [id number] Location: ER Room/Bed: Procedure: [id number] DX/CHEST SINGLE (PORTABLE) Exam Date: 12/16/19 Exam Time: 1437 REPORT STATUS: Signed EXAMINATION: CHEST SINGLE (PORTABLE) INDICATION: ^ERMD ORDER ^[id number] ^1437 ^Y COMPARISON: Chest radiograph 01/25/2012 FINDINGS: AP view TUBES and LINES: None. LUNGS: Lungs are well inflated. Lungs are clear. There is no evidence of pneumonia or pulmonary edema. PLEURA: No pleural effusion or pneumothorax. HEART AND MEDIASTINUM: The cardiomediastinal silhouette is unremarkable.. BONES AND SOFT TISSUES: No acute osseous lesion. Soft tissues are unremarkable. UPPER ABDOMEN: No free air under the diaphragm. IMPRESSION: No acute thoracic abnormality. Signed by: Dr. Stephane Hernandez M.D. on 12/16/2019 4:47 PM Dictated By: STEPHANE HERNANDEZ MD 46 Transcribed By: VIKRAM on 12/16/191646 COPY TO: TEENA COBIAN DO~ Procedures 12 Lead ECG Interpretation ECG Interpretation : ECG: ECG 1 Blow Torch Burner: Interpreted by ED physician Date: Dec 16, 2019 Time: 14:20 Rhythm: sinus rhythm QRS axis: normal ST segments normal: Yes T waves normal: No T wave inversion: V1, V2, V3, V4, V5 Q waves: V1, V2, V3 Assessment & Plan Medical Decision Making MDM 54 yof presents with CP . ACS, PE, costocondritis, Chest wall pain, and pneumothorax considered. labs reviewed . Plan to discharge to home Assessment & Plan Final Impression: (1) Chest pain, non-cardiac Depart Disposition: HOME, SELF-CARE Last Vital Signs Date Time Temp Pulse Resp B/P (MAP) Pulse Ox O2 Delivery O2 Flow Rate FiO2 12/16/19 14:16 98.7 81 18 132/97 100 Home Meds Reported Medications Dicyclomine Hcl (DICYCLOMINE HCL) 10 Mg Capsule, 10 MG PO TID 11/22/19 Cyclobenzaprine Hcl (FLEXERIL) 5 Mg Tablet, 10 MG PO HS 11/22/19 Omeprazole (OMEPRAZOLE) 40 Mg Capsule.dr, 40 MG PO BID 08/19/18 Losartan Potassium (LOSARTAN POTASSIUM) 25 Mg Tablet, 25 MG PO DAILY 08/19/18 Hydrocodone Bit/Acetaminophen (NORCO 10-325 TABLET) 1 Each Tablet, 1 TAB PO PRN 08/19/18 Alprazolam (ALPRAZOLAM) 1 Mg Tablet, 1 MG PO TID, #30 TAB 08/19/18 Carvedilol (COREG) 25 Mg Tab, 25 MG PO BID 12/25/14 [Phenergan] No Conflict Check, 25 MG PO DAILY PRN 08/19/12 TEENA COBIAN DO Dec 16, 2019 14:21
[2019-12-16] MEDS ORDERED: KETOROLAC TROMETHAMINE 30 MG/ML VIAL IV STA (14:22)
--- OUTSIDE RECORDS SUMMARY | 2019-12-16 14:22 | XMS REPORT | Clinical Summary ---
Author Author [facility] Address Unknown Phone Unavailable Care Team Providers Care Clamshell Engineer Name Role Phone Sadiq Ray MD PCP [...] HYDROcodone-acetaminophen TK 1 T PO Q 0 04/04 (NORCO) 10-325 mg per 8 TO 12 H PRN 7 tablet P Active Problems Problem Noted Date Chronic seasonal allergic rhinitis 04/27/2017 Ear pain, right 04/20/2017 Chronic otitis media of both ears 04/20/2017 Social History Date Tobacco Use Types Packs/Day Years Used Current Every Day Smoker Smokeless Tobacco: Never Used Drinks/Week oz/Week Comments Alcohol Use No Sex Assigned at Date Recorded Not on file Industry Job Start Date Occupation Not on file Not on file Not on file Travel End Travel History Travel Start No recent travel history available. Last Filed Vital Signs Not on file Plan of Treatment Health Maintenance Due Date Last Done Comments CERVICAL CANCER SCREENING 11/12/1987 BREAST CANCER SCREENING 2016 COLONOSCOPY SCREENING 2016 SHINGLES VACCINES (#1) 2016 INFLUENZA VACCINE 02/03/2020 Results Not on fileafter 12/15/2018 Insurance Type Payer Benefit Subscriber ID Effective Phone Address Plan / Dates Group PPO BCBS BCBS xxxxxxxxxxxx 2015- CHOICE Present PPO/DEJON [employer] PPO Medicare MEDICARE MEDICARE xxxxxxxxxxx 2009-P [place], PART [place] AND [place] Advance Directives For more information, please contact: [phone] Patient Manager Loan Explanation Type Date Recorded Advance Directives, Living Will and Medical Power of Medication Assistant
--- OUTSIDE RECORDS SUMMARY | 2019-12-16 14:22 | XMS REPORT | Continuity of Care Document ---
Author Author [facility] t Organization [facility] Address [address] [place] [address] Phone Unavailable Care Team Providers Care Custom Bike Builder Name Role Phone Urvashi BENITES MD PCP Dimitris ROSSI Attphys Unavailable Gustavo WITT Attphys Unavailable Berta KILPATRICK Attphys Unavailable BISI IRWIN Attphys Unavailable Urvashi BENITES Attphys Unavailable Payers Payer Name Policy Type Policy Number Effective Date Expiration Date S [facility] [id number] 2016 00:00:00 [facility] Medicare A & B [id number] 2009 00:00:00 [facility] Problems Condition Name Condition Details Condition Category Status Onset Date Resolution Date Last Treatment Date Treating Clinician Comments Source Chronic seasonal allergic rhinitis Chronic seasonal allergic rhi nitis Disease Active 2017-04-27 00:00:00 [facility] Ear pain, right Ear pain, right Disease Active 2017-04-20 00:00:00 Usman Muhammad Chronic otitis media of both ears Chronic otitis media of both e ars Disease Active 2017-04-20 00:00:00 [place] Allergies, Adverse Reactions, Alerts Allergy Name Allergy Type Status Severity Reaction(s) Onset Date Inacti ve Date Treating Clinician Comments Source Gabapentin Allergy to Substance Active 2019-01-03 00:00:00 [facility] Morphine Allergy to Substance Active 2018-08-19 00:00:00 [facility] Aspirin Allergy to Substance Active 2018-08-19 00:00:00 [facility] Amitriptyline Allergy to Substance Active 2018-08-19 00:00: 00 [facility] Butorphanol Allergy to Substance Active 2018-08-19 00:00:00 [facility] Ketorolac Allergy to Substance Active 2018-08-19 00:00:00 [facility] Ziprasidone Allergy to Substance Active 2018-08-19 00:00:00 [facility] amitriptyline HCl DA Active DE 2018-04-12 00:00:00 [facility] ketorolac tromethamine DA Active DE 2018-04-12 00:00:00 [facility] ziprasidone mesylate DA Active SV 2018-04-12 00:00:00 [facility] NSAIDS (Non-Steroidal Anti-Inflamma DA Active SV 9 00:00:00 [facility] morphine DA Active SV 2018-04-12 00:00:00 [facility] aspirin DA Active SV 2018-04-12 00:00:00 [facility] tramadol DA Active MO 2018-04-12 00:00:00 [facility] butorphanol DA Active U 2018-04-12 00:00:00 [facility] amitriptyline HCl DA Active DE 2018-04-03 00:00:00 [facility] ketorolac tromethamine DA Active DE 2018-04-03 00:00:00 [facility] ziprasidone mesylate DA Active SV 2018-04-03 00:00:00 [facility] NSAIDS (Non-Steroidal Anti-Inflamma DA Active SV 2018-03-07 0 00:00:00 [facility] morphine DA Active SV 2018-04-03 00:00:00 [facility] aspirin DA Active SV 2018-04-03 00:00:00 [facility] tramadol DA Active MO 2018-04-03 00:00:00 [facility] butorphanol DA Active U 2018-04-03 00:00:00 [facility] Aspirin Propensity to adverse reactions to drug Active 2017-04-20 00:00:00 Usman Muhammad Gabapentin Propensity to adverse reactions to drug Active 2017-04-20 00:00:00 Usman avilez Ziprasidone Hcl Propensity to adverse reactions to drug Active 2017-04-20 00:00:00 Usman avilez Morphine Propensity to adverse reactions to drug Active 2017-04-20 00:00:00 Usman Muhammad Butorphanol Tartrate Propensity to adverse reactions to drug Active 2017-04-20 00:00:00 Usman penny Ketorolac Propensity to adverse reactions to drug Active 2017-04-20 00:00:00 Usman avilez Tramadol Propensity to adverse reactions to drug Active 2017-04-20 00:00:00 Usman Muhammad amitriptyline HCl DA Active DE 2016-12-16 00:00:00 [facility] ketorolac tromethamine DA Active DE 2016-12-16 00:00:00 [facility] ziprasidone mesylate DA Active SV 2016-12-16 00:00:00 [facility] NSAIDS (Non-Steroidal Anti-Inflamma DA Active SV 2016-12-03 4 00:00:00 [facility] morphine DA Active SV 2016-12-16 00:00:00 [facility] aspirin DA Active SV 2016-12-16 00:00:00 [facility] tramadol DA Active MO 2016-12-16 00:00:00 [facility] butorphanol DA Active U 2016-12-16 00:00:00 [facility] Social History Social Habit Start Date Stop Date Quantity Comments Source Sex Assigned At Xu Muhammad Alcohol intake 2018-10-19 00:00:00 2018-10-19 00:00:00 Current non-drinker of alcohol (finding) Usman Muhammad Smoking Status Start Date Stop Date Source Current every day smoker 2018-10-19 00:00:00 Xu Muhammad Medications Ordered Medication Name Filled Medication Name Start Date Stop Da te Current Medication? Ordering Clinician Indication Dosage Frequency Signature (SIG) Comments Components Source carvedilol (COREG) 25 MG tablet 2018-10-19 15:15:59 Yes 25mg Q.5D Take 25 mg by mouth 2 (two) times a day with meals. Usman Muhammad omeprazole (PriLOSEC) 40 MG capsule 2018-10-19 15:15:59 Yes 40mg QD Take 40 mg by mouth daily. Usman Muhammad DULoxetine (CYMBALTA) 60 MG capsule 2018-10-19 15:15:59 Yes 60mg QD Take 60 mg by mouth daily. Usman Muhammad HYDROcodone-acetaminophen (NORCO) 10-325 mg per tablet 2017-04-16 00:00:00 Yes TK 1 T PO Q 8 TO 12 H PRN P Usman Muhammad losartan (COZAAR) 25 MG tablet 2017-02-25 00:00:00 Yes TK 1 T PO TID Usman Muhammad Alprazolam 1 Mg Tablet Alprazolam 1 Mg Tablet Yes 1 Daily [facility] Carvedilol 12.5 Mg Tablet Carvedilol 12.5 Mg Tablet Yes 25 Twice A Day [facility] Duloxetine Hcl (Cymbalta) 20 Mg Capcr Duloxetine Hcl (Cymbalta) 20 Mg Capcr Yes 40 Daily [facility] Hydrocodone Bit/Acetaminophen ([place] 10-325 Tablet) 1 Each Tablet Hydrocodone Bit/Acetaminophen ([place] 10-325 Tablet) 1 Each Tablet Yes 1 As Needed [facility] Losartan Potassium 25 Mg Tablet Losartan Potassium 25 Mg Tablet Yes [facility] Omeprazole 40 Mg Capsule. Omeprazole 40 Mg Capsule. Yes 40 Daily [facility] Promethazine Hcl (Phenergan) 25 Mg/1 Ml Vial Promethaz ine Hcl (Phenergan) 25 Mg/1 Ml Vial Yes 25 As Needed [facility] Procedures Procedure Date / Time Performed Performing Clinician Sourdavid e EGD BIOPSY SINGLE/MULTIPLE 2018-08-19 00:00:00 ELENITA KILPATRICK [facility] Plan of Care Planned Activity Planned Date Details Comments Source Future Scheduled Test 2020-02-03 00:00:00 INFLUENZA VACCINE [code = INFLUENZA VACCINE] [facility] Scheduled Test 2016 00:00:00 BREAST CANCER SCRE ENING [code = BREAST CANCER SCREENING] [facility] Scheduled Test 2016 00:00:00 COLONOSCOPY SCREEN ING [code = COLONOSCOPY SCREENING] [facility] Scheduled Test 2016 00:00:00 SHINGLES VACCINES (#1) [code = SHINGLES VACCINES (#1)] [facility] Scheduled Test 1987-11-12 00:00:00 Screening for jesika gnant neoplasm of cervix (procedure) [code = 711231020] [facility] Encounters Start Date/Time End Date/Time Encounter Type Admission Type Attendi [facility] Care Department Encounter ID Source 2019-01-03 15:38:00 2019-01-03 19:52:00 Departed Emergency Room [address] [facility] [id number] [facility] 2018-08-19 11:47:00 2018-08-19 11:47:00 Reg[address] [facility] Care [facility] [id number] [facility] 2018-05-09 13:54:00 2018-06-03 23:59:[address] [facility] [id number] [facility] Results Test Description Test Time Test Comments Results Result Comments Source GASTRIC,BIOPSY 2019-03-10 16:39:00 RUN DATE: 03/10/19 Ambature PAGE 1 RUN TIME: 1639 Specimen Inquiry RUN USER: INTERFACE PATIENT: MELISSA SIN LOC: [facility] U #: [id number] AGE/SX: 53/F ROOM: RE03/09/19REG DR: Edwar Enriquez MD : 67 BED: DIS: STATUS: [facility] TLOC: SPEC #: [id number] RECD: 03/09/19 STATUS: MINI RE #: [id number] JEANNIE: 03/09/19 DR: Edwar Enriquez MD ENTERED: 03/09/19 SP TYPE: GASTRIC BX OTHR DR: Juju Benites MD ORDERED: GROSS COPIES TO: Juju Benites MD [address] [facility] [address] [place] [address] Edwar Enriquez MD [address] [address] PROCEDURES: GROSS (03/10/19- 1339) TISSUES: 1. ANTRUM - COLD BX 2. BODY BIOPSY OF STOMACH - COLD CLINICAL HISTORY COLLECTION DATE: 03/09/19 DYSPHAGIA FINAL DIAGNOSIS Gastric antrum, cold biopsy: MILD REACTIVE/CHEMICAL GASTROPATHY NO AREAS OF MUCOSAL EROSION/ULCERATION NO ACUTE INFLAMMATORY INFILTRATE PRESENT NEGATIVE FOR INTESTINAL METAPLASIA NEGATIVE FOR HELICOBACTER ORGANISMS NEGATIVE FOR MALIGNANCY Gastric body, biopsy: GASTRIC MUCOSA WITH NO SIGNIFICANT PATHOLOGIC ALTERATION RRB/charla Diaz [id number], [id number] CONTINUED ON NEXT PAGE RUN DATE: 03/10/19 [facility] PAGE 2 RUN TIME: 1639 Specimen Inquiry RUN USER: INTERFACE SPEC #: [id number] PATIENT: MELISSA SIN #[id number] (Continued)------ ------ MACROSCOPIC The first specimen is received in formalin, labeled with the patient's name, identified as "antrum cold biopsy", and consists of two damon biopsy fragments measuring 0.3 cm each, submitted as (1) for H E and giemsa stains. The second specimen is received in formalin, labeled with the patient's name, identified as "body of stomach biopsy", and consists of two damon biopsy fragments measuring 0.25 cm each, submitted as (2). GROSS PERFORMED AT [facility] [address] [place] [id number] (p)[phone] MICROSCOPIC All of the stains, including any controls performed, stain appropriately. MICROSCOPIC PERFORMED AT [facility] [address] [place] [address] (p)[phone] PERFORMING SITE Diagnosis performed at: [facility] [address] [place] [address] Signed SIGNATURE ON FILE Braden Velazquez MD 03/10/19 1639 END OF REPORT CBC W/AUTO DIFF 2019-03-07 13:46:00 Test Item WHITE BLOOD CELL (test code = WBC) 6.3 K/mm3 4.5-12.5 N RED BLOOD CELL (test code = RBC) 5.49 mill/mm3 3.7-5.2 H HEMOGLOBIN (test code = HGB) 15.5 gram/dL 11.5-15.5 N HEMATOCRIT (test code = HCT) 46.9 % 36.0-46.0 H MEAN CELL VOLUME (test code = MCV) 85.4 fL 80-98 N MEAN CELL HGB (test code = MCH) 28.1 picogram 27.0-33.0 N MEAN CELL HGB CONCETRATION (test code = MCHC) 32.8 gram/dL 33.0-36. 0 L RED CELL DISTRIBUTION WIDTH (test code = RDW) 12.8 % 11.6-16. 2 N RED CELL DISTRIBUTION WIDTH SD (test code = RDW-SD) 39.8 fL 37 .0-51.0 N PLATELET COUNT (test code = PLT) 96 K/mm3 150-450 L NEUTROPHIL % (test code = NT%) 50.1 % 39.0-69.0 N IMMATURE GRANULOCYTE % (test code = IG%) 0.6 % 0.0-5.0 N LYMPHOCYTE % (test code = LY%) 36.4 % 25.0-55.0 N MONOCYTE % (test code = MO%) 8.6 % 0.0-10.0 N EOSINOPHIL % (test code = EO%) 3.7 % 0.0-5.0 N BASOPHIL % (test code = BA%) 0.6 % 0.0-1.0 N NUCLEATED RBC % (test code = NRBC%) 0.0 % 0-0 N NEUTROPHIL # (test code = NT#) 3.13 K/mm3 1.8-7.7 N IMMATURE GRANULOCYTE # (test code = IG#) 0.04 x10 3/uL 0-0.03 H LYMPHOCYTE # (test code = LY#) 2.28 K/mm3 1.0-5.0 N MONOCYTE # (test code = MO#) 0.54 K/mm3 0-0.8 N EOSINOPHIL # (test code = EO#) 0.23 K/mm3 0.0-0.5 N BASOPHIL # (test code = BA#) 0.04 K/mm3 0.0-0.2 N NUCLEATED RBC # (test code = NRBC#) 0.00 K/mm3 0.0-0.1 N MANUAL DIFF REQUIRED (test code = MDIFF) NO, ONLY SCAN NEEDED DIFFERENTIAL [id number] 13:46:00* Test Item Value Reference Range Interpretation Comments STAIN ACCEPTABILITY (test code = STN ACCEPTABLE) STAIN ACCEPTABLE ANISOCYTOSIS (test code = ANISO) 1+ PLATELET ESTIMATE (test code = PLTEST) DECREASED PLATELET MORPHOLOGY (test code = PLTMORPH) SIZE VARIABLE BASIC METABOLIC [id number] 13:41:00* Test Item Value Reference Range Interpretation Comments SODIUM (test code = NA) 143 mmol/L 136-145 N POTASSIUM (test code = K) 4.2 mmol/L 3.5-5.1 N CHLORIDE (test code = CL) 110.0 mmol/L 98-107 H CARBON DIOXIDE (test code = CO2) 27.0 mmol/L 21-32 N ANION GAP (test code = GAP) 10.2 10-20 N GLUCOSE (test code = GLU) 76 mg/dL 74-106 N BLOOD UREA NITROGEN (test code = BUN) 8 mg/dL 7-18 N GLOMERULAR FILTRATION RATE (test code = GFR) 47 mL/min >=60 Estimated GFR by using Modified MDRD formula.Chronic kidney disease is defined as either kidney damageor GFR <60 mL/min/1.73 m2 for >3 months. CREATININE (test code = CREAT) 1.20 mg/dL 0.55-1.02 H Note change in reference range due to change in reagent. BUN/CREATININE RATIO (test code = BUN/CREA) 6.7 10-20 L CALCIUM (test code = CA) 9.1 mg/dL 8.5-10.1 N BASIC METABOLIC [id number] 13:36:00* Test Item Value Reference Range Interpretation Comments SODIUM (test code = NA) 143 mmol/L 136-145 N POTASSIUM (test code = K) 4.2 mmol/L 3.5-5.1 N CHLORIDE (test code = CL) 110.0 mmol/L 98-107 H CARBON DIOXIDE (test code = CO2) mmol/L 21-32 ANION GAP (test code = GAP) 10-20 GLUCOSE (test code = GLU) mg/dL 74-106 BLOOD UREA NITROGEN (test code = BUN) mg/dL 7-18 GLOMERULAR FILTRATION RATE (test code = GFR) mL/min >=60 CREATININE (test code = CREAT) mg/dL 0.55-1.02 BUN/CREATININE RATIO (test code = BUN/CREA) 10-20 CALCIUM (test code = CA) mg/dL 8.5-10.1 CBC W/AUTO [id number] 13:25:00* Test Item Value Reference Range Interpretation Comments WHITE BLOOD CELL (test code = WBC) 6.3 K/mm3 4.5-12.5 N RED BLOOD CELL (test code = RBC) 5.49 mill/mm3 3.7-5.2 H HEMOGLOBIN (test code = HGB) 15.5 gram/dL 11.5-15.5 N HEMATOCRIT (test code = HCT) 46.9 % 36.0-46.0 H MEAN CELL VOLUME (test code = MCV) 85.4 fL 80-98 N MEAN CELL HGB (test code = MCH) 28.1 picogram 27.0-33.0 N MEAN CELL HGB CONCETRATION (test code = MCHC) 32.8 gram/dL 33.0-36. 0 L RED CELL DISTRIBUTION WIDTH (test code = RDW) 12.8 % 11.6-16. 2 N RED CELL DISTRIBUTION WIDTH SD (test code = RDW-SD) 39.8 fL 37 .0-51.0 N PLATELET COUNT (test code = PLT) 96 K/mm3 150-450 L NEUTROPHIL % (test code = NT%) 50.1 % 39.0-69.0 N IMMATURE GRANULOCYTE % (test code = IG%) 0.6 % 0.0-5.0 N LYMPHOCYTE % (test code = LY%) 36.4 % 25.0-55.0 N MONOCYTE % (test code = MO%) 8.6 % 0.0-10.0 N EOSINOPHIL % (test code = EO%) 3.7 % 0.0-5.0 N BASOPHIL % (test code = BA%) 0.6 % 0.0-1.0 N NUCLEATED RBC % (test code = NRBC%) 0.0 % 0-0 N NEUTROPHIL # (test code = NT#) 3.13 K/mm3 1.8-7.7 N IMMATURE GRANULOCYTE # (test code = IG#) 0.04 x10 3/uL 0-0.03 H LYMPHOCYTE # (test code = LY#) 2.28 K/mm3 1.0-5.0 N MONOCYTE # (test code = MO#) 0.54 K/mm3 0-0.8 N EOSINOPHIL # (test code = EO#) 0.23 K/mm3 0.0-0.5 N BASOPHIL # (test code = BA#) 0.04 K/mm3 0.0-0.2 N NUCLEATED RBC # (test code = NRBC#) 0.00 K/mm3 0.0-0.1 N MANUAL DIFF REQUIRED (test code = MDIFF) NO, ONLY SCAN NEEDED DIFFERENTIAL [id number] 13:25:00* Test Item Value Reference Range Interpretation Comments STAIN ACCEPTABILITY (test code = STN ACCEPTABLE) CABOT RINGS (test code = CAB) MORPHOLOGY COMMENT (test code = MOC) PLATELET ESTIMATE (test code = PLTEST) PLATELET MORPHOLOGY (test code = PLTMORPH) CBC W/AUTO [id number] 13:25:00* Test Item Value Reference Range Interpretation Comments WHITE BLOOD CELL (test code = WBC) 6.3 K/mm3 4.5-12.5 N RED BLOOD CELL (test code = RBC) 5.49 mill/mm3 3.7-5.2 H HEMOGLOBIN (test code = HGB) 15.5 gram/dL 11.5-15.5 N HEMATOCRIT (test code = HCT) 46.9 % 36.0-46.0 H MEAN CELL VOLUME (test code = MCV) 85.4 fL 80-98 N MEAN CELL HGB (test code = MCH) 28.1 picogram 27.0-33.0 N MEAN CELL HGB CONCETRATION (test code = MCHC) 32.8 gram/dL 33.0-36. 0 L RED CELL DISTRIBUTION WIDTH (test code = RDW) 12.8 % 11.6-16. 2 N RED CELL DISTRIBUTION WIDTH SD (test code = RDW-SD) 39.8 fL 37 .0-51.0 N PLATELET COUNT (test code = PLT) 96 K/mm3 150-450 L NEUTROPHIL % (test code = NT%) 50.1 % 39.0-69.0 N IMMATURE GRANULOCYTE % (test code = IG%) 0.6 % 0.0-5.0 N LYMPHOCYTE % (test code = LY%) 36.4 % 25.0-55.0 N MONOCYTE % (test code = MO%) 8.6 % 0.0-10.0 N EOSINOPHIL % (test code = EO%) 3.7 % 0.0-5.0 N BASOPHIL % (test code = BA%) 0.6 % 0.0-1.0 N NUCLEATED RBC % (test code = NRBC%) 0.0 % 0-0 N NEUTROPHIL # (test code = NT#) 3.13 K/mm3 1.8-7.7 N IMMATURE GRANULOCYTE # (test code = IG#) 0.04 x10 3/uL 0-0.03 H LYMPHOCYTE # (test code = LY#) 2.28 K/mm3 1.0-5.0 N MONOCYTE # (test code = MO#) 0.54 K/mm3 0-0.8 N EOSINOPHIL # (test code = EO#) 0.23 K/mm3 0.0-0.5 N BASOPHIL # (test code = BA#) 0.04 K/mm3 0.0-0.2 N NUCLEATED RBC # (test code = NRBC#) 0.00 K/mm3 0.0-0.1 N MANUAL DIFF REQUIRED (test code = MDIFF) NO, ONLY SCAN NEEDED DIFFERENTIAL [id number] 13:25:00* Test Item Value Reference Range Interpretation Comments STAIN ACCEPTABILITY (test code = STN ACCEPTABLE) CABOT RINGS (test code = CAB) MORPHOLOGY COMMENT (test code = MOC) PLATELET ESTIMATE (test code = PLTEST) PLATELET MORPHOLOGY (test code = PLTMORPH) CBC W/AUTO [id number] 13:25:00* Test Item Value Reference Range Interpretation Comments WHITE BLOOD CELL (test code = WBC) 6.3 K/mm3 4.5-12.5 N RED BLOOD CELL (test code = RBC) 5.49 mill/mm3 3.7-5.2 H HEMOGLOBIN (test code = HGB) 15.5 gram/dL 11.5-15.5 N HEMATOCRIT (test code = HCT) 46.9 % 36.0-46.0 H MEAN CELL VOLUME (test code = MCV) 85.4 fL 80-98 N MEAN CELL HGB (test code = MCH) 28.1 picogram 27.0-33.0 N MEAN CELL HGB CONCETRATION (test code = MCHC) 32.8 gram/dL 33.0-36. 0 L RED CELL DISTRIBUTION WIDTH (test code = RDW) 12.8 % 11.6-16. 2 N RED CELL DISTRIBUTION WIDTH SD (test code = RDW-SD) 39.8 fL 37 .0-51.0 N PLATELET COUNT (test code = PLT) 96 K/mm3 150-450 L NEUTROPHIL % (test code = NT%) 50.1 % 39.0-69.0 N IMMATURE GRANULOCYTE % (test code = IG%) 0.6 % 0.0-5.0 N LYMPHOCYTE % (test code = LY%) 36.4 % 25.0-55.0 N MONOCYTE % (test code = MO%) 8.6 % 0.0-10.0 N EOSINOPHIL % (test code = EO%) 3.7 % 0.0-5.0 N BASOPHIL % (test code = BA%) 0.6 % 0.0-1.0 N NUCLEATED RBC % (test code = NRBC%) 0.0 % 0-0 N NEUTROPHIL # (test code = NT#) 3.13 K/mm3 1.8-7.7 N IMMATURE GRANULOCYTE # (test code = IG#) 0.04 x10 3/uL 0-0.03 H LYMPHOCYTE # (test code = LY#) 2.28 K/mm3 1.0-5.0 N MONOCYTE # (test code = MO#) 0.54 K/mm3 0-0.8 N EOSINOPHIL # (test code = EO#) 0.23 K/mm3 0.0-0.5 N BASOPHIL # (test code = BA#) 0.04 K/mm3 0.0-0.2 N NUCLEATED RBC # (test code = NRBC#) 0.00 K/mm3 0.0-0.1 N MANUAL DIFF REQUIRED (test code = MDIFF) NO, ONLY SCAN NEEDED DIFFERENTIAL [id number] 13:25:00* Test Item Value Reference Range Interpretation Comments STAIN ACCEPTABILITY (test code = STN ACCEPTABLE) MORPHOLOGY COMMENT (test code = MOC) PLATELET ESTIMATE (test code = PLTEST) PLATELET MORPHOLOGY (test code = PLTMORPH) CBC W/AUTO [id number] 13:24:00* Test Item Value Reference Range Interpretation Comments WHITE BLOOD CELL (test code = WBC) 6.3 K/mm3 4.5-12.5 N RED BLOOD CELL (test code = RBC) 5.49 mill/mm3 3.7-5.2 H HEMOGLOBIN (test code = HGB) 15.5 gram/dL 11.5-15.5 N HEMATOCRIT (test code = HCT) 46.9 % 36.0-46.0 H MEAN CELL VOLUME (test code = MCV) 85.4 fL 80-98 N MEAN CELL HGB (test code = MCH) 28.1 picogram 27.0-33.0 N MEAN CELL HGB CONCETRATION (test code = MCHC) 32.8 gram/dL 33.0-36. 0 L RED CELL DISTRIBUTION WIDTH (test code = RDW) 12.8 % 11.6-16. 2 N RED CELL DISTRIBUTION WIDTH SD (test code = RDW-SD) 39.8 fL 37 .0-51.0 N PLATELET COUNT (test code = PLT) 96 K/mm3 150-450 L NEUTROPHIL % (test code = NT%) 50.1 % 39.0-69.0 N IMMATURE GRANULOCYTE % (test code = IG%) 0.6 % 0.0-5.0 N LYMPHOCYTE % (test code = LY%) 36.4 % 25.0-55.0 N MONOCYTE % (test code = MO%) 8.6 % 0.0-10.0 N EOSINOPHIL % (test code = EO%) 3.7 % 0.0-5.0 N BASOPHIL % (test code = BA%) 0.6 % 0.0-1.0 N NUCLEATED RBC % (test code = NRBC%) 0.0 % 0-0 N NEUTROPHIL # (test code = NT#) 3.13 K/mm3 1.8-7.7 N IMMATURE GRANULOCYTE # (test code = IG#) 0.04 x10 3/uL 0-0.03 H LYMPHOCYTE # (test code = LY#) 2.28 K/mm3 1.0-5.0 N MONOCYTE # (test code = MO#) 0.54 K/mm3 0-0.8 N EOSINOPHIL # (test code = EO#) 0.23 K/mm3 0.0-0.5 N BASOPHIL # (test code = BA#) 0.04 K/mm3 0.0-0.2 N NUCLEATED RBC # (test code = NRBC#) 0.00 K/mm3 0.0-0.1 N MANUAL DIFF REQUIRED (test code = MDIFF) NO, ONLY SCAN NEEDED DIFFERENTIAL [id number] 13:24:00* Test Item Value Reference Range Interpretation Comments STAIN ACCEPTABILITY (test code = STN ACCEPTABLE) CABOT RINGS (test code = CAB) MORPHOLOGY COMMENT (test code = MOC) PLATELET ESTIMATE (test code = PLTEST) PLATELET MORPHOLOGY (test code = PLTMORPH) CBC W/AUTO [id number] 13:14:00* Test Item Value Reference Range Interpretation Comments WHITE BLOOD CELL (test code = WBC) K/mm3 4.5-12.5 RED BLOOD CELL (test code = RBC) mill/mm3 3.7-5.2 HEMOGLOBIN (test code = HGB) 15.5 gram/dL 11.5-15.5 N HEMATOCRIT (test code = HCT) % 36.0-46.0 MEAN CELL VOLUME (test code = MCV) fL 80-98 MEAN CELL HGB (test code = MCH) picogram 27.0-33.0 MEAN CELL HGB CONCETRATION (test code = MCHC) gram/dL 33.0-36. 0 RED CELL DISTRIBUTION WIDTH (test code = RDW) % 11.6-16. 2 RED CELL DISTRIBUTION WIDTH SD (test code = RDW-SD) fL 37 .0-51.0 PLATELET COUNT (test code = PLT) K/mm3 150-450 MEAN PLATELET VOLUME (test code = MPV) fL 6.7-11.0 NEUTROPHIL % (test code = NT%) % 39.0-69.0 IMMATURE GRANULOCYTE % (test code = IG%) % 0.0-5.0 LYMPHOCYTE % (test code = LY%) % 25.0-55.0 MONOCYTE % (test code = MO%) % 0.0-10.0 EOSINOPHIL % (test code = EO%) % 0.0-5.0 BASOPHIL % (test code = BA%) % 0.0-1.0 NEUTROPHIL # (test code = NT#) K/mm3 1.8-7.7 LYMPHOCYTE # (test code = LY#) K/mm3 1.0-5.0 MONOCYTE # (test code = MO#) K/mm3 0-0.8 EOSINOPHIL # (test code = EO#) K/mm3 0.0-0.5 BASOPHIL # (test code = BA#) K/mm3 0.0-0.2 CTA CORONARY W or WO [id number] 12:52:00 [place] [id number] Patient Name: MELISSA SIN MR #: [id number] : 1965 Age/Sex: 54/F Req #: [id number] Adm Physician: Ordered by: ZARA ROSSI DO Report #: [id number] Location: CT Room/Bed: Procedure: CT/CTA BROOKS NARY W or WO CALCIUM Exam Date: 02/13/19 Exam Time: 1020 REPORT STATUS: Signed EXAM: CALCIUM SCORE AND CORONARY CTA INDICATION: [id number] CH EST PAIN/HIATAL HERNIA COMPARISON: Chest radiograph 01/03/2019 TECHNIQUE : Multi-detector CT technology was employed (64 MD[employer]). Minimal slice thickn ess was performed following the intravenous administration of contrast materi al. The patient was premedicated with 50 mg by mouth metoprolol and 0.4 mg sub lingual nitroglycerin for heart rate control and coronary dilation, respective ly. IV CONTRAST: 100 mL of Isovue-370 ORAL CONTRAST: None COMPLICATIONS: None RADIATION DOSE: Total DLP: 1572 mGy*cm Estimated effective dose: (DLP x 0.015 x size factor) mSv CTDIvol has been reviewed. It is below the limits set by the Radiation Protocol Committee (RPC). For optimization of anatomic nuzhat luation, multiplanar reconstruction, maximum intensity projections, and advanc ed 3-D off-line postprocessing were performed on a dedicated stand-alone works tation under the direct supervision of the interpreting physician. QUALIT Y: Excellent FINDINGS: CALCIUM SCORE: The observed Agatston Calciu m Score of 0 is at percentile 50% for subjects of the same age and gender who are free of clinical cardiovascular disease and treated diabetes. The Agatston score for each vessel is as follows: LM: 0 LAD: 0 LCx: 0 RCA: 0 DISTRIBUTION OF THE CALCIFIED PLAQUES: No identifiable calcified plaques in the coronary arteries. CORONARY ANATOMY: There is normal origin of t he coronary arteries. Left Main Coronary Artery: The left main is mildly to rtuous but normal sized vessel that bifurcates into the LAD and circumflex. T here is no evidence of atherosclerotic changes or stenotic disease. Left Anterior Descending Coronary Artery: The LAD is a normal size vessel that wrap s around the apex. It gives rise to 2 acute diagonal branches. There is no ev idence of atherosclerotic changes or stenotic disease. Left Circumflex Brooks nary Artery: The LCX is a normal size vessel, which is non-dominant. It gives rise to 1 obtuse marginal branches and AV shalonda branch. There is no evidence of atherosclerotic changes or stenotic disease. Right Coronary Artery: Inc idental high takeoff of the RCA at the junction of the right coronary cusp and proximal ascending thoracic aorta at the level of the sinotubular junction. T he RCA is a normal size vessel, which is dominant. It gives rise to a conus b ranch and 2 acute marginal branches. In its distal segment it bifurcates into the PDA and PV branch. There is no evidence of atherosclerotic changes or st enotic disease. CARDIAC MORPHOLOGY AND FUNCTION: Asymmetric moderate hypert rophy of the proximal interventricular septum measuring up to 1.9 cm. LIMITED CHEST: Limited views of the visualized chest show no abnormality with in chest wall and mediastinum. No mediastinal lymphadenopathy. The main pul monary artery mildly enlarged measuring 3.4 cm in diameter and pulmonary date with pulmonary hypertension. Bandlike consolidation in the lingula on ser ies 3, image 112 and right middle lobe on image 113 appear unchanged when comp ared to 01/03/2019. Moderate bilateral central peribronchial wall thickening sug gestive of either chronic airway inflammation or acute bronchitis. The vi sualized portions of the ascending and descending thoracic aorta are of normal size. Small to moderate hiatal hernia. LIMITED ABDOMEN: Limited i mages of the upper abdomen reveal no abnormalities of the visualized organs. BONES: No acute osseous abnormalities. IMPRESSION: 1. Total Agatston Calcium Score: 0 that corresponds to percentile 50%, representing no identifiable calcified plaques in the coronary arteries. 2. Normal brooks nary anatomy variant with high takeoff of the right coronary artery, arising a t the junction of the right coronary cusp and proximal ascending thoracic aort a at the sinotubular junction, of no clinical significance. 3. No eviden ce of atherosclerotic changes or stenotic disease. Reference: [email or web address]/resource/resmgr/Docs/JCCT_Guidelines_ AD_RAD S.pdf 4. Small to moderate hiatal hernia. Signed by: Dr. Dana Espana M.D. on 02/14/2019 1:36 PM Dictated By: DANA WALLACE MD 1331 Tra nscribed By: VIKRAM on 02/14/19 0553 COPY TO: ZARA ROSSI DO CTA CORONARY W or WO OSBUYJC9424-21-08 12:52:00 [facility] [place] [address] Patient Name: MELISSA SIN MR #: [id number] : 1965 Age/Sex: 53/F Req #: [id number] [facility] Physician: Ordered by: ZARA ROSSI DO Report #: [id number] Location: CT Room/Bed: Procedure: [id number] CT/CTA CORONARY W or WO CALCIUM Exam Date: 02/13/19 Exam Time: 1020 REPORT STATUS: Sign ed EXAM: CALCIUM SCORE AND CORONARY CTA INDICATION: [id number] CHEST PAIN/HIATAL HERNIA COMPARISON: Chest radiograph 01/03/2019 TECHNIQUE: Multi-detector CT technology was employed (64 MD[employer]). Minimal s lice thickness was performed following the intravenous administration of cont rast material. The patient was premedicated with 50 mg by mouth metoprolol and 0.4 mg sublingual nitroglycerin for heart rate control and coronary dilation, respectively. IV CONTRAST: 100 mL of Isovue-370 ORAL CONTRAST: None COMPLICATIONS: None RADIAT ION DOSE: Total DLP: 1572 mGy*cm Estimated effective dose: (DLP x 0.015 x size factor) mSv CTDIvol has been reviewed. It is below the limit s set by the Radiation Protocol Committee (RPC). For optimization of a natomic evaluation, multiplanar reconstruction, maximum intensity projections, and advanced 3-D off-line postprocessing were performed on a dedicated stand- alone workstation under the direct supervision of the interpreting physician. QUALITY: Excellent FINDINGS: CALCIUM SCORE: The observed Agat ston Calcium Score of 0 is at percentile 50% for subjects of the same age and gender who are free of clinical cardiovascular disease and treated diabetes. T he Agatston score for each vessel is as follows: LM: 0 LAD: 0 LCx: 0 R CA: 0 DISTRIBUTION OF THE CALCIFIED PLAQUES: No identifiable calcified plaq ues in the coronary arteries. CORONARY ANATOMY: There is normal origin of the coronary arteries. Left Main Coronary Artery: The left main i s mildly tortuous but normal sized vessel that bifurcates into the LAD and cir cumflex. There is no evidence of atherosclerotic changes or stenotic disease. Left Anterior Descending Coronary Artery: The LAD is a normal size vessel that wraps around the apex. It gives rise to 2 acute diagonal branches. There is no evidence of atherosclerotic changes or stenotic disease. Left Circ umflex Coronary Artery: The LCX is a normal size vessel, which is non-dominant . It gives rise to 1 obtuse marginal branches and AV shalonda branch. There is no evidence of atherosclerotic changes or stenotic disease. Right Coronary Artery: Incidental high takeoff of the RCA at the junction of the right martinez ry cusp and proximal ascending thoracic aorta at the level of the sinotubular junction. The RCA is a normal size vessel, which is dominant. It gives rise t o a conus branch and 2 acute marginal branches. In its distal segment it bifu rcates into the PDA and PV branch. There is no evidence of atherosclerotic ch anges or stenotic disease. CARDIAC MORPHOLOGY AND FUNCTION: Asymmetric mode rate hypertrophy of the proximal interventricular septum measuring up to 1.9 c m. LIMITED CHEST: Limited views of the visualized chest show no abnor mality within chest wall and mediastinum. No mediastinal lymphadenopathy. T he main pulmonary artery mildly enlarged measuring 3.4 cm in diameter and pulm onary date with pulmonary hypertension. Bandlike consolidation in the elsy gula on series 3, image 112 and right middle lobe on image 113 appear unchange d when compared to 01/03/2019. Moderate bilateral central peribronchial wall thi ckening suggestive of either chronic airway inflammation or acute bronchitis. The visualized portions of the ascending and descending thoracic aorta are of normal size. Small to moderate hiatal hernia. LIMITED ABDOMEN: Limited images of the upper abdomen reveal no abnormalities of the visualized organs. BONES: No acute osseous abnormalities. IMPRESSION: 1. Total Agatston Calcium Score: 0 that corresponds to percentile 50%, repr esenting no identifiable calcified plaques in the coronary arteries. 2. Normal coronary anatomy variant with high takeoff of the right coronary artery , arising at the junction of the right coronary cusp and proximal ascending th oracic aorta at the sinotubular junction, of no clinical significance. 3 . No evidence of atherosclerotic changes or stenotic disease. Reference: http://[email or web address]/resource/resmgr/Docs/JCCT_Guideline s_ AD_RADS.pdf 4. Small to moderate hiatal hernia. Signed by: Dr. Magalis Hernandez M.D. on 02/14/2019 1:36 PM Dictated By: DANA HERNANDEZ MD 1336 COPY TO: ZARA ROSSI DO Creatine [id number] 17:46:00* Test Item Value Reference Range Interpretation Comments Creatine Kinase (test code = 2157-6) 40 29-168 [facility] Uqjzl5281-29-37 17:33:00* Test Item Value Reference Range Interpretation Comments Sodium Level (test code = 2951-2) 141 136-145 [facility] Tdtpe5071-73-71 17:33:00* Test Item Value Reference Range Interpretation Comments Potassium Level (test code = 2823-3) 3.5 3.5-5.1 [facility] HospitalChloride Diaix2736-85-70 17:33:00* Test Item Value Reference Range Interpretation Comments Chloride Level (test code = 2075-0) 105 98-107 [facility] HospitalCarbon Dioxide Xpccl2016-79-75 17:33:00* Test Item Value Reference Range Interpretation Comments Carbon Dioxide Level (test code = 2028-9) 25 22-29 [facility] HospitalAnion [id number] 17:33:00* Test Item Value Reference Range Interpretation Comments Anion Gap (test code = 73427-8) 14.5 8-16 [facility] HospitalBlood Urea Rliwabsg9784-21-15 17:33:00* Test Item Value Reference Range Interpretation Comments Blood Urea Nitrogen (test code = 3094-0) 9 7-26 [facility] HospitalCreatinine2019-07-02 17:33:00* Test Item Value Reference Range Interpretation Comments Creatinine (test code = 2160-0) 1.11 0.57-1.11 [facility] HospitalBUN/Creatinine Mtduo0222-93-28 17:33:00* Test Item Value Reference Range Interpretation Comments BUN/Creatinine Ratio (test code = 3097-3) 8 6-25 [facility] HospitalEstimat Glomerular Filtration Rate 2019-01-03 17:33:00* Test Item Value Reference Range Interpretation Comments Estimat Glomerular Filtration Rate (test code = 392569264) 52 >60 L Ranges were taken from the National Kidney Disease Education Program and the [facility] Foundation literature.Reference ranges:60 or greater: Xtubcg01-35 ( for 3 consecutive months): Chronic kidney disease 15 or less: Kidney failureCHRISTUS Saint Michael HospitalGlucose Yvieo9900-54-89 17:33:00* Test Item Value Reference Range Interpretation Comments Glucose Level (test code = KGG5430) 90 74-118 [facility] HospitalCalcium Uwitn5456-73-75 17:33:00* Test Item Value Reference Range Interpretation Comments Calcium Level (test code = 83760-4) 9.5 8.4-10.2 [facility] HospitalTotal Nwkuekxfq8029-78-57 17:33:00* Test Item Value Reference Range Interpretation Comments Total Bilirubin (test code = 1975-2) 0.4 0.2-1.2 [facility] HospitalAspartate Amino Transf (AST/SGOT) 2019-01-03 17:33:00* Test Item Value Reference Range Interpretation Comments Aspartate Amino Transf (AST/SGOT) (test code = Aspartate Amino Transf (AST/SGOT)) 10 5-34 [facility] HospitalAlanine Aminotransferase (ALT/SGPT) 2019-01-03 17:33:00* Test Item Value Reference Range Interpretation Comments Alanine Aminotransferase (ALT/SGPT) (test code = 1742-6) 11 0-55 [facility] HospitalTotal Hlqnaxu2977-58-47 17:33:00* Test Item Value Reference Range Interpretation Comments Total Protein (test code = 2885-2) 6.7 6.5-8.1 [facility] HospitalAlbumin2019-07-02 17:33:00* Test Item Value Reference Range Interpretation Comments Albumin (test code = 1751-7) 3.7 3.5-5.0 [facility] HospitalGlobulin2019-07-02 17:33:00* Test Item Value Reference Range Interpretation Comments Globulin (test code = 67679-7) 3.0 2.3-3.5 [facility] HospitalAlbumin/Globulin Vsdly4956-93-67 17:33:00 * Test Item Value Reference Range Interpretation Comments Albumin/Globulin Ratio (test code = 1759-0) 1.2 0.8-2.0 [facility] HospitalAlkaline Vdlfheaqqwk6736-67-35 17:33:00* Test Item Value Reference Range Interpretation Comments Alkaline Phosphatase (test code = 6768-6) 56 40-150 [facility] HospitalB-Type Natriuretic Vmnytvs1731-84-54 17:33:00* Test Item Value Reference Range Interpretation Comments B-Type Natriuretic Peptide (test code = 88734-7) 29.8 0-100 [facility] HospitalCreatine Kinase UY8300-35-84 17:33:00* Test Item Value Reference Range Interpretation Comments Creatine Kinase MB (test code = 15968-1) 1.50 0-5.0 [facility] HospitalTroponin [id number] 17:33:00* Test Item Value Reference Range Interpretation Comments Troponin I (test code = FAS2972) 0.001 0-0.300 [facility] HospitalCHEST SINGLE (PORTABLE)2019-01-03 17:07:00 [place] [address] Patient Name: MELISSA SIN MR #: [id number] : 1965 Age/Sex: 54/F Req #: [id number] Adm Physician: Ordered by: BRIDGETT BRAVO HOGSHEAD PACKER Report #: [id number] Location: ER Room/Bed: Procedure: [id number] DX/CHEST SINGLE (PORTABLE) Exam Date: 01/03/19 Exam Time: 160 0 REPORT STATUS: Signed EXAMINAT ION: CHEST SINGLE (PORTABLE) INDICATION: Chest pain for a few weeks, w orse today COMPARISON: None FINDINGS: AP view TUBES a nd LINES: None. LUNGS: Lungs are well inflated. Focal scarring/subsegmen jose atelectasis in the left lower lobe. There is no evidence of consolidative pneumonia or pulmonary edema. PLEURA: No pleural effusion or pneumothora x. HEART AND MEDIASTINUM: The cardiomediastinal silhouette is unremarkable . BONES AND SOFT TISSUES: No acute osseous lesion. Soft tissues are unremarkable. UPPER ABDOMEN: No free air under the diaphragm. IMP RESSION: No acute thoracic abnormality. Focal scarring/subsegmental atel ectasis in the left lower lobe. Signed by: Richard Flores MD on 9 5:09 PM Dictated By: RICHARD FLORES DO 08 Transcribed By: VIKRAM on 01/03/191708 COPY TO: BRIDGETT BRAVO NP CHEST SINGLE (PORTABLE)2019-01-03 17:07:00 [place] [address] Patient Name: MELISSA SIN MR #: [id number] : 1965 Age/Sex: 53/F Req #: [id number] Adm Physician: Ordered by: BRIDGETT BRAVO NP Report #: [id number] Location: Room/Bed: Procedure: [id number] DX/CHEST SINGLE (PORTABLE) Exam Date: 01/03/19 Moody wilson Time: 1600 REPORT STATUS: Signed EXAMINATION: CHEST SINGLE (PORTABLE) INDICATION: Chest pain for a f ew weeks, worse today COMPARISON: None FINDINGS: AP view TUBES and LINES: None. LUNGS: Lungs are well inflated. Focal scarrin g/subsegmental atelectasis in the left lower lobe. There is no evidence of con solidative pneumonia or pulmonary edema. PLEURA: No pleural effusion or pneumothorax. HEART AND MEDIASTINUM: The cardiomediastinal silhouette is u nremarkable. BONES AND SOFT TISSUES: No acute osseous lesion. Soft ti ssues are unremarkable. UPPER ABDOMEN: No free air under the diaphragm. IMPRESSION: No acute thoracic abnormality. Focal scarring/subseg mental atelectasis in the left lower lobe. Signed by: Richard Flores MD on 01/03/2019 5:09 PM Dictated By: RICHARD FLORES DO Electronically Sig bryce By: RICHARD FLORES DO on 01/03/19 170 Transcribed By: VIKRAM on 170 COPY TO: BRIDGETT BRAVO NP Prothrombin Fkhe3156-42-26 17:06:00* Test Item Value Reference Range Interpretation Comments Prothrombin Time (test code = 5902-2) 12.7 11.9-14.5 [facility] HospitalProthromb Time International Ratio 2019-01-03 17:06:00* Test Item Value Reference Range Interpretation Comments Prothromb Time International Ratio (test code = 6301-6) 0.91 Oral Anticoagulant Therapy INR Values:1. Low Intensity Therapy 1.5 - 2.02 . Moderate Intensity Therapy 2.0 - 3.03. High Intensity Therapy(1) 2.5 - 3. 54. High Intensity Therapy(2) 3.0 - 4.05. Panic Value INR > 5.0 [facility] HospitalActivated Partial Thromboplast Time 2019-01-03 17:06:00* Test Item Value Reference Range Interpretation Comments Activated Partial Thromboplast Time (test code = 74200-4) 29.8 23.8-35.5 [facility] HospitalWhite Blood Nyxec9848-14-05 17:02:00* Test Item Value Reference Range Interpretation Comments White Blood Count (test code = 6690-2) 7.60 4.8-10.8 [facility] HospitalRed Blood Vxcnl3716-66-54 17:02:00* Test Item Value Reference Range Interpretation Comments Red Blood Count (test code = 789-8) 5.42 3.6-5.1 H [facility] HospitalHemoglobin2019-07-02 17:02:00* Test Item Value Reference Range Interpretation Comments Hemoglobin (test code = 92602-8) 15.5 12.0-16.0 [facility] HospitalHematocrit2019-07-02 17:02:00* Test Item Value Reference Range Interpretation Comments Hematocrit (test code = 4544-3) 45.0 34.2-44.1 H [facility] HospitalMean Corpuscular Tdcuyy8982-17-68 17:02:00* Test Item Value Reference Range Interpretation Comments Mean Corpuscular Volume (test code = 787-2) 83.0 81-99 [facility] HospitalMean Corpuscular Hdejowaibb2948-49-87 17:02:00* Test Item Value Reference Range Interpretation Comments Mean Corpuscular Hemoglobin (test code = 785-6) 28.6 28-32 [facility] HospitalMean Corpuscular Hemoglobin Concent 2019-01-03 17:02:00* Test Item Value Reference Range Interpretation Comments Mean Corpuscular Hemoglobin Concent (test code = 786-4) 34.4 31-35 [facility] HospitalRed Cell Distribution Yatga7915-15-40 17:02:00* Test Item Value Reference Range Interpretation Comments Red Cell Distribution Width (test code = 20015-8) 12.7 11.7 -14.4 [facility] HospitalPlatelet Ctnpp8716-58-10 17:02:00* Test Item Value Reference Range Interpretation Comments Platelet Count (test code = 777-3) 90 140-360 L NO CLOT DETECTED [facility] HospitalNeutrophils (%) (Auto) 2019-01-03 17:02:00* Test Item Value Reference Range Interpretation Comments Neutrophils (%) (Auto) (test code = 43733-4) 62.0 38.7-80.0 [facility] HospitalLymphocytes (%) (Auto)2019-01-03 17:02:00 * Test Item Value Reference Range Interpretation Comments Lymphocytes (%) (Auto) (test code = 736-9) 25.5 18.0-39.1 [facility] HospitalMonocytes (%) (Auto)2019-01-03 17:02:00* Test Item Value Reference Range Interpretation Comments Monocytes (%) (Auto) (test code = 5905-5) 8.4 4.4-11.3 [facility] HospitalEosinophils (%) (Auto)2019-01-03 17:02:00 * Test Item Value Reference Range Interpretation Comments Eosinophils (%) (Auto) (test code = 713-8) 2.9 0.0-6.0 [facility] HospitalBasophils (%) (Auto)2019-01-03 17:02:00* Test Item Value Reference Range Interpretation Comments Basophils (%) (Auto) (test code = 706-2) 0.8 0.0-1.0 [facility] HospitalIM GRANULOCYTES %2019-01-03 17:02:00* Test Item Value Reference Range Interpretation Comments IM GRANULOCYTES % (test code = IM GRANULOCYTES %) 0.4 0.0- 1.0 [facility] HospitalNeutrophils # (Auto)2019-01-03 17:02:00* Test Item Value Reference Range Interpretation Comments Neutrophils # (Auto) (test code = 751-8) 4.7 2.1-6.9 [facility] HospitalLymphocytes # (Auto)2019-01-03 17:02:00* Test Item Value Reference Range Interpretation Comments Lymphocytes # (Auto) (test code = 14814-5) 1.9 1.0-3.2 [facility] HospitalMonocytes # (Auto)2019-01-03 17:02:00* Test Item Value Reference Range Interpretation Comments Monocytes # (Auto) (test code = 742-7) 0.6 0.2-0.8 [facility] HospitalEosinophils # (Auto)2019-01-03 17:02:00* Test Item Value Reference Range Interpretation Comments Eosinophils # (Auto) (test code = 711-2) 0.2 0.0-0.4 [facility] HospitalBasophils # (Auto)2019-01-03 17:02:00* Test Item Value Reference Range Interpretation Comments Basophils # (Auto) (test code = 704-7) 0.1 0.0-0.1 [facility] HospitalAbsolute Immature Granulocyte (auto 2019-01-03 17:02:00* Test Item Value Reference Range Interpretation Comments Absolute Immature Granulocyte (auto (cb t code = Absolute Immature Granulocyte (auto) 0.03 0-0.1 [facility] HospitalUS ORWDMNLIJWNA0919-40-09 07:02:00 [place] [address] Patient Name: MELISSA GARCIA MR #: [id number] : 1965 Age/Sex: 53/F Req #: [id number] Adm Physician: Ordered by: ELENITA KILPATRICK MD Report #: [id number] Location: Room/Bed: Procedure: [id number] US/US TRANSVAGINAL Exam Date: 11/24/18 Exam Marbin e: 1644 REPORT STATUS: Signed EX AMINATION: Transvaginal ultrasound. CLINICAL INDICATION: Enlarged ovary COMPARISON: CT abdomen and pelvis with contrast 08/06/2015 DISCUSSION: Transverse and sagittal transvaginal images were obtained of the pelvis w ith supplemental transabdominal images. The uterus has been removed. The right ovary is not identified. The left ovary is normal in size and measu res 2.8 x 2 x 2.3 cm. Arterial and venous waveforms are identified by color Do ppler and spectral waveform analysis. No free fluid or pelvic masses are se en. IMPRESSION: Status post hysterectomy with nonvisualization of the right ovary, possibly due to concomitant oophorectomy. Unremarkable sonog raphic appearance of the left ovary. Signed by: Dr. Sandra Lewis M.D. on 11/25/2018 7:05 AM Dictated By: SANDRA LEWIS MD 4 Transcribed By: VIKRAM on 11/25/18704 COPY TO: ELENITA KILPATRICK MD MAMMOGRAPHY DIGITAL SCR BILAT 2018-11-22 14:47:00 [place] [address] Patient Name: MELISSA GARCIA MR #: [id number] : 1965 Age/Sex: 53/F Req #: [id number] [facility] Physician: Ordered by: BISI IRWIN MD Report #: [id number] Location: MAMMO Room/Bed: Procedure: [id number] MG/MAMMOGRAPHY DIGITAL SCR BILAT Exam Date: 11/22/18 Exam Time: 1419 REPORT STATUS: Sig bryce #[id number] - MGSCRBIL #BILATERAL DIGITAL SCREENING MAMMOGRAM WIT H CAD: 11/22/2018 CLINICAL: Routine screening. Comparison is made to exa ms dated: 01/28/2017 stereotactic biopsy, 12/31/2016 mammogram and 01/23/2014 m ammogram - [facility]. There are scattered fibroglan dular elements in both breasts. Current study was also evaluated with a Comp uter Aided Detection (CAD) system. No significant masses, calcifications, or other findings are seen in either breast. There has been no significant int erval change. IMPRESSION: NEGATIVE There is no mammographic evidence of m alignancy. A 1 year screening mammogram is recommended. The patient will be notified by letter of the results. ARTIE GUERRERO M.D., mc/sea enrad:11/30/2018 11:28:38 Parking Enforcement Officer: Christiane THRASHER(Sebas)(M), [facility] letter sent: Normal Exam Mammogram BI-RA DS: 1 Negative Dictated By: SPENCER GUERRERO MD 1128 Transcribed By: THEE on 11/30/18 1128 COPY TO: BISI IRWIN MD TROPONIN I [id number] 16:08:00* Test Item Value Reference Range Interpretation Comments TROPONIN I RAPID (test code = TROPIRAP) 0.01 ng/mL <0.08 Please Note New Reference Range 0.00-0.079 ng/mL - Negative>or= 0.08 ng/mL - Positive The use of serial sampling and testing protocol is arecommended practice.An elevated troponin level alone is often not sufficient fordiagnosis of myocardial infarction. Troponin results obtained by different assays may vary.Evaluation of the extent of myocardial damage based onincrease of troponin would be valid only if similarmethodology is used. B-TYPE NATRIURETIC [id number] 15:17:00* Test Item Value Reference Range Interpretation Comments B-TYPE NATRIURETIC PEPTIDE (test code = BNP) 7.58 pgram/mL 0-100 N PROTHROMBIN [id number] 14:58:00* Test Item Value Reference Range Interpretation Comments PROTHROMBIN TIME PATIENT (test code = PTP) 11.7 seconds 9.0-14.0 N INTERNATIONAL NORMAL RATIO (test code = INR) 1.0 0.8-1.2 N The therapeutic range for oral anticoagulant therapy formost indications is an international normalized ratio (INR)of between 2.0 and 3.0. The recommended therapeutic INRrange for various clinical situations is listed below: Clinical Situation INR range Pulmonary e mbolism treatment (2.0-3.0)Venous thrombosis treatmentVenous thrombosis prophylaxis (high risk surgery)Prevention of systemic embolism from: Acute myocardial infarction Valvular heart disease Atrial fibrillation Mechanical prosthetic heart valves (2.5-3.5) IS PATIENT ON ANTICOAGULANTS? NTHROMBOPLASTIN TIME [id number] 14:58:00* Test Item Value Reference Range Interpretation Comments THROMBOPLASTIN TIME PARTIAL (test code = PTT) 29.9 seconds 25.0-36. 5 N IS PATIENT ON ANTICOAGULANTS? NCBC W/O [id number] 14:52:00* Test Item Value Reference Range Interpretation Comments WHITE BLOOD CELL (test code = WBC) 6.4 K/mm3 4.5-12.5 N RED BLOOD CELL (test code = RBC) 5.10 mill/mm3 3.7-5.2 N HEMOGLOBIN (test code = HGB) 14.3 gram/dL 11.5-15.5 N HEMATOCRIT (test code = HCT) 45.0 % 36.0-46.0 N MEAN CELL VOLUME (test code = MCV) 88.2 fL 80-98 N MEAN CELL HGB (test code = MCH) 28.0 picogram 27.0-33.0 N MEAN CELL HGB CONCETRATION (test code = MCHC) 31.8 gram/dL 33.0-36. 0 L RED CELL DISTRIBUTION WIDTH (test code = RDW) 13.2 % 11.6-16. 2 N PLATELET COUNT (test code = PLT) 90 K/mm3 150-450 L MEAN PLATELET VOLUME (test code = MPV) 14.5 fL 6.7-11.0 H BASIC METABOLIC [id number] 14:48:00* Test Item Value Reference Range Interpretation Comments SODIUM (test code = NA) 142 mmol/L 136-145 N POTASSIUM (test code = K) 4.0 mmol/L 3.5-5.1 N CHLORIDE (test code = CL) 110.0 mmol/L 98-107 H CARBON DIOXIDE (test code = CO2) 27.0 mmol/L 21-32 N ANION GAP (test code = GAP) 9.0 10-20 L GLUCOSE (test code = GLU) 82 mg/dL 74-106 N BLOOD UREA NITROGEN (test code = BUN) 10 mg/dL 7-18 N GLOMERULAR FILTRATION RATE (test code = GFR) 52 mL/min >=60 Estimated GFR by using Modified MDRD formula.Chronic kidney disease is defined as either kidney damageor GFR <60 mL/min/1.73 m2 for >3 months. CREATININE (test code = CREAT) 1.10 mg/dL 0.55-1.02 H Note change in reference range due to change in reagent. BUN/CREATININE RATIO (test code = BUN/CREA) 9.4 10-20 L CALCIUM (test code = CA) 8.6 mg/dL 8.5-10.1 N HEPATIC FUNCTION [id number] 14:48:00* Test Item Value Reference Range Interpretation Comments TOTAL PROTEIN (test code = PROT) 6.6 gram/dL 6.4-8.2 N ALBUMIN (test code = ALB) 3.1 g/dL 3.4-5.0 L GLOBULIN (test code = GLOB) 3.5 gram/dL 2.7-4.2 N ALBUMIN/GLOBULIN RATIO (test code = A/G) 0.9 0.75-1.50 N BILIRUBIN TOTAL (test code = BILT) 0.30 mg/dL 0.0-1.0 N BILIRUBIN DIRECT (test code = BILD) 0.06 mg/dL 0.0-0.20 N SGOT/AST (test code = AST) 8 IUnit/L 15-37 L SGPT/ALT (test code = ALT) 15 IUnit/L 12-78 N ALKALINE PHOSPHATASE TOTAL (test code = ALKP) 59 IUnit/L 45-117 N Note change in reference range due to change in reagent. [id number] 14:48:00* Test Item Value Reference Range Interpretation Comments TROPONIN-I (test code = TROPI) <0.015 ng/mL 0-0.045 N CBC W/O [id number] 14:47:00* Test Item Value Reference Range Interpretation Comments WHITE BLOOD CELL (test code = WBC) K/mm3 4.5-12.5 RED BLOOD CELL (test code = RBC) mill/mm3 3.7-5.2 HEMOGLOBIN (test code = HGB) 14.3 gram/dL 11.5-15.5 N HEMATOCRIT (test code = HCT) 45.0 % 36.0-46.0 N MEAN CELL VOLUME (test code = MCV) fL 80-98 MEAN CELL HGB (test code = MCH) picogram 27.0-33.0 MEAN CELL HGB CONCETRATION (test code = MCHC) gram/dL 33.0-36. 0 RED CELL DISTRIBUTION WIDTH (test code = RDW) % 11.6-16. 2 PLATELET COUNT (test code = PLT) K/mm3 150-450 MEAN PLATELET VOLUME (test code = MPV) fL 6.7-11.0 BASIC METABOLIC [id number] 14:43:00* Test Item Value Reference Range Interpretation Comments SODIUM (test code = NA) 142 mmol/L 136-145 N POTASSIUM (test code = K) 4.0 mmol/L 3.5-5.1 N CHLORIDE (test code = CL) 110.0 mmol/L 98-107 H CARBON DIOXIDE (test code = CO2) mmol/L 21-32 ANION GAP (test code = GAP) 10-20 GLUCOSE (test code = GLU) mg/dL 74-106 BLOOD UREA NITROGEN (test code = BUN) mg/dL 7-18 GLOMERULAR FILTRATION RATE (test code = GFR) mL/min >=60 CREATININE (test code = CREAT) mg/dL 0.55-1.02 BUN/CREATININE RATIO (test code = BUN/CREA) 10-20 CALCIUM (test code = CA) mg/dL 8.5-10.1 HEPATIC FUNCTION [id number] 14:43:00* Test Item Value Reference Range Interpretation Comments TOTAL PROTEIN (test code = PROT) gram/dL 6.4-8.2 ALBUMIN (test code = ALB) g/dL 3.4-5.0 GLOBULIN (test code = GLOB) gram/dL 2.7-4.2 ALBUMIN/GLOBULIN RATIO (test code = A/G) 0.75-1.50 BILIRUBIN TOTAL (test code = BILT) mg/dL 0.0-1.0 BILIRUBIN DIRECT (test code = BILD) mg/dL 0.0-0.20 SGOT/AST (test code = AST) IUnit/L 15-37 SGPT/ALT (test code = ALT) IUnit/L 12-78 ALKALINE PHOSPHATASE TOTAL (test code = ALKP) IUnit/L 45-117 [id number] 14:43:00* Test Item Value Reference Range Interpretation Comments TROPONIN-I (test code = TROPI) ng/mL 0-0.045 - XR CHEST 1 [id number] 14:17:00 FAX: Brian Osuna [place]: St: REG Name: MELISSA JUNG [facility] : 11/11/18 68 Age/S: 52/F [address] [facility] Unit #: [id number] Loc: [place] [address] Phys: Brian Osuna MD Acct: [id number] Dis Date: Status: REG ER PHONE #: [phone] Exam Date: 09/05/2018 1415 FAX #: [phone] Reason: CHEST PAIN EXAMS: CPT CODE: [id number] XR CHEST 1 V 93294 HISTORY: CHEST PAIN TECHNIQUE: AP chest x-ray COMPARISON: 06/02/18 FINDI NGS: No airspace consolidation or pleural effusion. Normal heart s ize. Mediastinal silhouette is unremarkable. Visualized osseous structures are grossly intact. IMPRESSION: No radi ographic evidence of acute cardiopulmonary process. Electronically S igned by Suzy Perez D.O. on 09/05/2018 at 1417 Reported a nd signed by: Suzy Perez D.O. CC: Brian Osuna MD Technologist: RT Taya RANDOLPH (R) Date/Time/By: 09/05/2018 (1417) : By: [email or web address] Orig Print D/T: S: 09/05/2018 (8317) PAGE 1 Signed Report INTERVERTEBRAL DISC 2018-04-19 12:03:00 RUN DATE: 04/19/18 [facility] PAGE 1 RUN TIME: 1204 Specimen Inqui ry RUN USER: INTERFACE PATIENT: MELISSA SIN ACCT #: [id number] LOC: [place] U #: [id number] AGE/SX: 52/F ROOM: [facility] RE04/13/18REG DR: Ted Castro MD : 67 BED: A DIS: 04/14/18 STATUS: DIS Kaylee TLOC: SPEC #: [id number] RECD: 04/14/18 STATUS: MINI ALLISON #: [id number] JEANNIE: 04/13/18- SUBM DR: Ted Castro MD ENTERED: 04/14/18 SP TYPE: INT DISC OTHR DR: Juan Benites MD ORDERED: GROSS COPIES TO: Juju Benites MD [address] [place] [address] Ted Castro MD [address] [place], [place] [id number] PROCEDURES: GROSS ( [id number]) TISSUES: LUMBAR VERTEBRA, NOS - L4-5 DISC CLINICAL HIS TORY COLLECTION DATE: 04/13/18 LEFT L4-5 DISC HERNIATION FINAL DIAGNOSIS Left L4-5, ligamentum flavum, lumbar laminectomy and microsurgical discectomy: INTERVERTEBRAL DISC MATERIAL AND A FEW FRAGMENTS OF BONE AND LIGAMENT TYPE FIBROCONNECTIVE TISSUE NEGATIVE FOR MALIGNANCY DMW/sm D 51046, 14670 MACROSCOPIC The specimen is receiv ed in formalin, labeled with the patient's name and identified as "ligamentum flavum". It consists of irregular fragments of light damon fibrous tissue and s mall fragments of possible bone. The specimen measures 3.5 X 3.0 X 0.8 cm in a ggregate. After decalcification major account representative portions CONTINUED ON NEXT PAGE RUN DATE: 04/19/18 [facility] PAGE 2 RUN TIME: 1204 Specimen Inquiry RUN USER: INTERFACE SPEC #: [id number]: [id number] PATIENT: MELISSA SIN #[id number] (Continued ) MACROSCOPIC (Continued) of tissue are sub mitted for histologic evaluation in a single cassette. The remaining specimen is submitted for decalcification and follow up microscopic evaluation in [facility] (1B-1D). GROSS PERFORMED AT [facility] [address] [place] [address] ([phone] MICROSCOPIC MICROSCOPIC PERFORMED AT [facility] All of the [facility], including any controls performed, stain appropriately. [facility] [address] [place] [address] (P)[phone] P ERFORMING SITE Diagnosis performed at: [facility] [place], [place] [id number] --- --------- Signed SIGNATURE ON FILE Kathy Joseph 04/19 1203 END OF REPORT MRI HIP LEFT [id number] 15:08:00 [place] [address] Patient Name: MELISSA ASHBY MR #: [id number] : 1965 Age/Sex: 52/F Req #: [id number] Adm Physician: Ordered by: JUJU BENITES MD Report #: [id number] Location: MRI Room/Bed: Procedure: [id number] MRI/MRI HIP LEFT WO Exam Date : Exam Time: REPORT STATUS: Signed MRI of the left hip without contrast. History: Hip pain. Fall. Decreased range of motion. Technique: Multiplanar multisequence MRI of the hip without con trast. Comparison: None Findings: There is no acute fracture, subluxa tion or avascular necrosis. Scattered degenerative changes are seen about t he visualized lower lumbar spine and pelvis. There is mild degenerative a rthrosis in the left hip joint with thinning of the articular cartilage at the superior lateral acetabulum and adjacent femoral head. There is degeneration and fraying of the labrum. There is a physiologic amount of fluid in the hip j oint. The remainder the visualized ligaments and tendons about the hip are int act. There is no evidence to suggest greater trochanteric bursitis. Th e visualized muscles are normal in size, signal intensity and morphology. N o ligamentous or tendon tear is seen. The visualized neurovascular bundles are intact. There may be a left ovary in the left upper pelvis with possibl e follicles. This is best seen on coronal series 3 image 18 through 22. Correl ate with surgical history. 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 No acute fracture, subluxation or avascular necrosis. Signed by: Dr. Herb Price M.D. on 04/05/2018 3:14 PM Dictated By: COL ELSY PRICE MD, MD 13 Transcribed By: VIKRAM on 04/05/181513 COPY TO: JUJU BENITES MD MRI SPINE LUMBAR [id number] 10:33:00 [place] [address] Patient Name: MELISSA ASHBY MR #: [id number] : 1965 Age/Sex: 52/F Req #: [id number] Adm Physician: Ordered by: JUJU BENITES MD Report #: [id number] Location: MRI Room/Bed: Procedure: [id number] MRI/MRI SPINE LUMBAR WO Exam D ate: Exam Time: REPORT STATUS: Signed EXAM INATION: MRI of the lumbar spine without contrast HISTORY: Low back pain, status post fall 3 days ago COMPARISON: None. TECHNIQUE: Sagittal T1, T2, S TIR; axial T2 and proton density. FINDINGS: It is assumed that th ere are 5 lumbar vertebrae. Curvature/Alignment: Normal lordosis. Ve rtebrae: No evidence of recent fracture, infection, or neoplasm. Conus: Normal, terminating at T12-L1 Cauda equina: Unremarkable. Lower th oracic: Unremarkable. Paraspinal soft tissues: Unremarkable. Degenera tive changes: L1-L2: Unremarkable. L2-L3: Mild asymmetric to t he left disc bulge with tiny 2 mm AP diameter left subarticular disc protrusio n and facet arthrosis. Partial effacement of the left lateral recess and possi ble displacement of the traversing left L3 nerve root without definite malaika phil. L3-L4: Symmetric disc bulge with a small 3 mm AP diameter central disc protrusion, ligamenta flava thickening and facet arthrosis. Mild spinal canal and moderate foraminal stenoses. L4-L5: Asymmetric to the left disc bulge, approximately 5 mm AP diameter central and left subarticular disc protrusion flattens the ventral thecal sac and effaces the left lateral recess , with probable displacement of the traversing left L5 nerve root. Bilateral f acet arthrosis. Moderate left and mild right foraminal stenosis. L5-S 1: Mild symmetric disc bulge, ligamenta flava thickening and moderate facet ar throsis. Mild spinal canal and moderate foraminal stenoses worse on the right. Sacroiliac joints: Unremarkable. IMPRESSION: 1. No acute lumb ar spine posttraumatic abnormalities. 2. Effacement of the left lateral re cess at L2-L3 and L4-L5 due to degenerative changes and small disc protrusion . 3. Mild spinal canal and moderate foraminal stenoses at L3-L4 as describ ed. 4. Moderate degenerative foraminal stenosis on the left at L4-L5 and bilaterally at L5-S1. Signed by: Dr. Luis Patel M.D. on 04/05/2018 10:40 AM Dictated By: LUIS PATEL MD 104 Transcribed By: VIKRAM on 04/05/18 104 COPY TO: JUJU GARCIA MD
--- NOTE | 2019-12-16 14:25 | NUR ---
morphine was not given due to allergy.
[2019-12-16] MEDS ORDERED: NITROGLYCERIN 2% OINT 1 GM PKT TOP STA (14:28)
[2019-12-16] MEDS ORDERED: ONDANSETRON HCL INJ 2MG/ML 2ML 2 MG/ML VIAL IV ONE (14:30)
[2019-12-16] MEDS ORDERED: NITROGLYCERIN 2% OINT 1 GM PKT ONE (14:35)
[2019-12-16 14:46] LABS: BASOPHILS # (AUTO) 0.1 (0.0-0.1); BASOPHILS % 0.7 % (0.0-1.0); EOSINOPHILS # (AUTO) 0.3 (0.0-0.4); EOSINOPHILS % 3.8 % (0.0-6.0); HEMATOCRIT 48.1 % (34.2-44.1); HEMOGLOBIN 16.2 g/dL (12.0-16.0); LYMPHOCYTES # (AUTO) 2.5 (1.0-3.2); LYMPHOCYTES % 35.7 % (18.0-39.1); MEAN CORPUSCULAR HEMOGLOBIN 28.1 pg (28-32); MEAN CORPUSCULAR HGB CONC 33.7 g/dL (31-35); MEAN CORPUSCULAR VOLUME 83.4 fL (81-99); MONOCYTES # (AUTO) 0.6 (0.2-0.8); NEUTROPHILS # (AUTO) 3.6 (2.1-6.9); NEUTROPHILS % 51.4 % (38.7-80.0); PLATELET COUNT 121 x10e3/uL (140-360); RED BLOOD COUNT 5.77 x10e6/uL (3.6-5.1); RED CELL DISTRIBUTION WIDTH 13.1 % (11.7-14.4)
[2019-12-16 14:59] LABS: ALBUMIN 3.6 g/dL (3.5-5.0); ALBUMIN/GLOBULIN RATIO 1.1 (0.8-2.0); ANION GAP 16.9 mmol/L (8-16); CALCIUM 9.7 mg/dL (8.4-10.2); CREATININE, SERUM 1.23 mg/dL (0.57-1.11); POTASSIUM 3.9 mmol/L (3.5-5.1)
[2019-12-16 15:06] LABS: CREATINE KINASE MB 0.6 ng/mL (0-5.0)
[2019-12-16] MEDS ORDERED: HYDROMORPHONE 1MG/1ML INJ IV PRN (15:15)
[2019-12-16 15:56] VITALS: BP 125/91
--- NOTE | 2019-12-16 16:51 | Diagnostic Imaging Report ---
EXAMINATION: CHEST SINGLE (PORTABLE) INDICATION: ^ERMD ORDER ^[id number] ^1437 ^Y COMPARISON: Chest radiograph 01/25/2012 FINDINGS: AP view TUBES and LINES: None. LUNGS: Lungs are well inflated. Lungs are clear. There is no evidence of pneumonia or pulmonary edema. PLEURA: No pleural effusion or pneumothorax. HEART AND MEDIASTINUM: The cardiomediastinal silhouette is unremarkable.. BONES AND SOFT TISSUES: No acute osseous lesion. Soft tissues are unremarkable. UPPER ABDOMEN: No free air under the diaphragm. IMPRESSION: No acute thoracic abnormality. Signed by: Dr. Dana Hernandez M.D. on 12/16/2019 4:47 PM
== END 2019-12-16 16:05 | disposition home or self-care (01) ==
LOC: ER 14:19
DX: R07.89 Other chest pain (principal); R06.02 Shortness of breath; I10 Essential (primary) hypertension; F41.9 Anxiety disorder, unspecified; E78.00 Pure hypercholesterolemia, unspecified; M54.9 Dorsalgia, unspecified; G89.29 Other chronic pain; F17.210 Nicotine dependence, cigarettes, uncomplicated
CPT/HCPCS: 36415; 71045; 80053; 82550; 82553; 83880; 84484; 85025; 85379; 93005; 99284; J2270; J2405

== ENCOUNTER → 2020-04-18 | Day surgery (SDC) | payer BC, MEDICARE, OTHER ==
[~2020-04-18] MED LIST changes: +IOPAMIDOL 200 MG/ML 20 ML VIAL IT ONE; +LIDOCAINE HCL 1% 30ML-PF VIAL ONE; +LIDOCAINE HCL 2% LOCAL INJ 5 ML SDV VIAL INJ ONE; +MIDAZOLAM HCL 2 MG/2 ML VIAL ONE; +PROPOFOL IV EMULSION 10 MG/ML 20 ML VIAL ONE; +TRIAMCINOLONE ACET 40 MG/ML VIAL ONE
[2020-04-18 05:59] LABS: BASOPHILS # (AUTO) 0.1 (0.0-0.1); BASOPHILS % 0.7 % (0.0-1.0); EOSINOPHILS # (AUTO) 0.2 (0.0-0.4); EOSINOPHILS % 3.5 % (0.0-6.0); HEMATOCRIT 47.2 % (34.2-44.1); HEMOGLOBIN 15.7 g/dL (12.0-16.0); LYMPHOCYTES # (AUTO) 2.7 (1.0-3.2); LYMPHOCYTES % 39.1 % (18.0-39.1); MEAN CORPUSCULAR HEMOGLOBIN 28.4 pg (28-32); MEAN CORPUSCULAR HGB CONC 33.3 g/dL (31-35); MEAN CORPUSCULAR VOLUME 85.4 fL (81-99); MONOCYTES # (AUTO) 0.5 (0.2-0.8); MONOCYTES % 7.3 % (4.4-11.3); NEUTROPHILS # (AUTO) 3.4 (2.1-6.9); NEUTROPHILS % 49.1 % (38.7-80.0); PLATELET COUNT 93 x10e3/uL (140-360); RED BLOOD COUNT 5.53 x10e6/uL (3.6-5.1); RED CELL DISTRIBUTION WIDTH 13.4 % (11.7-14.4)
[2020-04-18 07:05] VITALS: BP 141/98
== END | disposition home or self-care (01) ==
LOC: OR 05:27
PROVIDERS: ATTEND Physical Medicine & Rehabilitation Pain Medicine
DX: M70.62 Trochanteric bursitis, left hip (principal); M25.552 Pain in left hip; D69.3 Immune thrombocytopenic purpura; M54.81 Occipital neuralgia; M54.16 Radiculopathy, lumbar region; Z11.59 Encounter for screening for other viral diseases; Z01.810 Encounter for preprocedural cardiovascular examination; Z01.812 Encounter for preprocedural laboratory examination; Z88.5 Allergy status to narcotic agent; Z88.8 Allergy status to other drugs, medicaments and biological substances; Z91.041 Radiographic dye allergy status; R07.9 Chest pain, unspecified; F41.9 Anxiety disorder, unspecified
CPT/HCPCS: 20610 ×2; 36415; 85025; 93005; J2001 ×2; J2250; J2704; J3301; Q9967; U0002; 77003

== ENCOUNTER → 2020-05-02 | Day surgery (SDC) | payer BC, MEDICARE, OTHER ==
[~2020-05-02] MED LIST changes: +DEXAMETHASONE SOD PHOS 10 MG/1 ML VIAL ONE; +FAMOTIDINE 20 MG/2 ML VIAL IV ONE; -MIDAZOLAM HCL 2 MG/2 ML VIAL ONE; +ONDANSETRON HCL INJ 2MG/ML 2ML 2 MG/ML VIAL ONE; -TRIAMCINOLONE ACET 40 MG/ML VIAL ONE
[2020-05-02 06:02] LABS: BASOPHILS # (AUTO) 0.1 (0.0-0.1); BASOPHILS % 0.6 % (0.0-1.0); EOSINOPHILS # (AUTO) 0.2 (0.0-0.4); EOSINOPHILS % 1.9 % (0.0-6.0); HEMATOCRIT 48.2 % (34.2-44.1); HEMOGLOBIN 15.8 g/dL (12.0-16.0); LYMPHOCYTES # (AUTO) 2.7 (1.0-3.2); MEAN CORPUSCULAR HEMOGLOBIN 27.7 pg (28-32); MEAN CORPUSCULAR HGB CONC 32.8 g/dL (31-35); MEAN CORPUSCULAR VOLUME 84.6 fL (81-99); MONOCYTES # (AUTO) 0.6 (0.2-0.8); NEUTROPHILS # (AUTO) 4.5 (2.1-6.9); NEUTROPHILS % 56.2 % (38.7-80.0); PLATELET COUNT 102 x10e3/uL (140-360); RED CELL DISTRIBUTION WIDTH 13.8 % (11.7-14.4)
[2020-05-02 07:15] VITALS: BP 104/77
== END | disposition home or self-care (01) ==
LOC: OR 05:23
PROVIDERS: ATTEND Physical Medicine & Rehabilitation Pain Medicine
DX: M54.16 Radiculopathy, lumbar region (principal); M48.061 Spinal stenosis, lumbar region without neurogenic claudication; M70.62 Trochanteric bursitis, left hip; M54.81 Occipital neuralgia; I44.0 Atrioventricular block, first degree; I10 Essential (primary) hypertension; I34.1 Nonrheumatic mitral (valve) prolapse; Z88.6 Allergy status to analgesic agent; Z91.81 History of falling; Z01.812 Encounter for preprocedural laboratory examination; Z11.59 Encounter for screening for other viral diseases; Z85.3 Personal history of malignant neoplasm of breast; Z86.73 Personal history of transient ischemic attack (TIA), and cerebral infarction without residual deficits
CPT/HCPCS: 36415; 64483; 64484 ×3; 85025; J1100; J2001 ×2; J2405; J2704; Q9967; U0002; 77003

== ENCOUNTER → 2020-08-08 | Day surgery (SDC) | payer MEDICARE ==
[~2020-08-08] MED LIST changes: -DEXAMETHASONE SOD PHOS 10 MG/1 ML VIAL ONE; -FAMOTIDINE 20 MG/2 ML VIAL IV ONE; -IOPAMIDOL 200 MG/ML 20 ML VIAL IT ONE; -LIDOCAINE HCL 1% 30ML-PF VIAL ONE; +MIDAZOLAM HCL 2 MG/2 ML VIAL ONE
[2020-08-08 08:24] LABS: BASOPHILS % 0.7 % (0.0-1.0); EOSINOPHILS # (AUTO) 0.2 (0.0-0.4); EOSINOPHILS % 3.8 % (0.0-6.0); HEMATOCRIT 41.8 % (34.2-44.1); HEMOGLOBIN 14.1 g/dL (12.0-16.0); LYMPHOCYTES % 32.8 % (18.0-39.1); MEAN CORPUSCULAR HGB CONC 33.7 g/dL (31-35); MONOCYTES # (AUTO) 0.5 (0.2-0.8); MONOCYTES % 8.5 % (4.4-11.3); NEUTROPHILS # (AUTO) 3.3 (2.1-6.9); NEUTROPHILS % 53.9 % (38.7-80.0); PLATELET COUNT 104 x10e3/uL (140-360); RED BLOOD COUNT 4.86 x10e6/uL (3.6-5.1); RED CELL DISTRIBUTION WIDTH 13.3 % (11.7-14.4)
[2020-08-08 09:55] VITALS: BP 126/82
== END | disposition home or self-care (01) ==
LOC: OR 06:43
PROVIDERS: ATTEND Internal Medicine Gastroenterology
DX: K20.90 Esophagitis, unspecified without bleeding (principal); K29.50 Unspecified chronic gastritis without bleeding; K44.9 Diaphragmatic hernia without obstruction or gangrene; K28.9 Gastrojejunal ulcer, unspecified as acute or chronic, without hemorrhage or perforation; K21.9 Gastro-esophageal reflux disease without esophagitis; K58.9 Irritable bowel syndrome, unspecified; I44.0 Atrioventricular block, first degree; M54.9 Dorsalgia, unspecified; I10 Essential (primary) hypertension; I34.1 Nonrheumatic mitral (valve) prolapse; F41.9 Anxiety disorder, unspecified; F17.210 Nicotine dependence, cigarettes, uncomplicated; Z88.6 Allergy status to analgesic agent; Z91.041 Radiographic dye allergy status; Z86.73 Personal history of transient ischemic attack (TIA), and cerebral infarction without residual deficits
CPT/HCPCS: 36415; 43233; 43239; 85025; 93005; J2405; U0002; 43235; 43450; J2001; J2250

== ENCOUNTER 2020-09-20 21:24 | Emergency (ER) | payer BC, MEDICARE ==
[~2020-09-20] VITALS: Ht 177.8 cm; Wt 113.9 kg
[~2020-09-20 21:24] MED LIST changes: -LIDOCAINE HCL 2% LOCAL INJ 5 ML SDV VIAL INJ ONE; -MIDAZOLAM HCL 2 MG/2 ML VIAL ONE; -ONDANSETRON HCL INJ 2MG/ML 2ML 2 MG/ML VIAL ONE; -PROPOFOL IV EMULSION 10 MG/ML 20 ML VIAL ONE
[2020-09-20 21:55] LABS: BASOPHILS % 0.7 % (0.0-1.0); EOSINOPHILS # (AUTO) 0.2 (0.0-0.4); EOSINOPHILS % 3.5 % (0.0-6.0); HEMATOCRIT 39.5 % (34.2-44.1); HEMOGLOBIN 13.5 g/dL (12.0-16.0); LYMPHOCYTES # (AUTO) 2.3 (1.0-3.2); LYMPHOCYTES % 38.4 % (18.0-39.1); MEAN CORPUSCULAR HEMOGLOBIN 28.5 pg (28-32); MEAN CORPUSCULAR HGB CONC 34.2 g/dL (31-35); MEAN CORPUSCULAR VOLUME 83.5 fL (81-99); MONOCYTES # (AUTO) 0.6 (0.2-0.8); MONOCYTES % 9.2 % (4.4-11.3); NEUTROPHILS # (AUTO) 2.9 (2.1-6.9); NEUTROPHILS % 47.9 % (38.7-80.0); PLATELET COUNT 92 x10e3/uL (140-360); RED BLOOD COUNT 4.73 x10e6/uL (3.6-5.1); RED CELL DISTRIBUTION WIDTH 12.6 % (11.7-14.4)
[2020-09-20 22:00] LABS: INR 0.9; PROTHROMBIN TIME 12.7 seconds (11.9-14.5)
[2020-09-20 22:01] LABS: PARTIAL THROMBOPLASTIN TIME 29.9 seconds (23.8-35.5)
[2020-09-20 22:08] LABS: ALBUMIN 3.3 g/dL (3.5-5.0); ALBUMIN/GLOBULIN RATIO 1.1 (0.8-2.0); ANION GAP 12.8 mmol/L (8-16); CALCIUM 8.5 mg/dL (8.4-10.2); CREATININE, SERUM 1.32 mg/dL (0.57-1.11); POTASSIUM 3.8 mmol/L (3.5-5.1)
[2020-09-20 22:14] LABS: CREATINE KINASE MB 0.8 ng/mL (0-5.0)
[2020-09-20] MEDS ORDERED: SODIUM CHLORIDE 0.9% 1000ML 1,000 ML IV SCH (22:45)
[2020-09-21] MEDS ORDERED: MORPHINE SULFATE INJ 2 MG/ML SYR IV PRN (00:15)
[2020-09-21] MEDS ORDERED: ONDANSETRON HCL INJ 2MG/ML 2ML 2 MG/ML VIAL IV PRN (00:15)
[2020-09-21] MEDS ORDERED: ACETAMINOPHEN 325 MG TAB PO PRN (00:30)
[2020-09-21] MEDS ORDERED: ASPIRIN 81 MG ENTERIC COATED PO SCH (09:00)
== END 2020-09-21 00:54 | disposition left against medical advice (07) ==
LOC: ER 21:40 → UNDOADMOB 09-21 00:20 → ERHOLD 09-21 00:20
DX: R07.9 Chest pain, unspecified (principal); R55 Syncope and collapse; R94.31 Abnormal electrocardiogram [ECG] [EKG]; I10 Essential (primary) hypertension; F41.9 Anxiety disorder, unspecified; E78.00 Pure hypercholesterolemia, unspecified; M54.9 Dorsalgia, unspecified; G89.29 Other chronic pain; Z20.822 Contact with and (suspected) exposure to COVID-19; F17.210 Nicotine dependence, cigarettes, uncomplicated
CPT/HCPCS: 36415; 70450; 71045; 72125; 80053; 82550; 82553; 84484; 85025; 85610; 85730; 99284; U0002

== ENCOUNTER → 2021-01-14 | Outpatient (CLI) | payer MEDICARE, BC | LOC: MAMMO 11:52 | PROVIDERS: ATTEND Family Medicine | DX: Z12.31 Encounter for screening mammogram for malignant neoplasm of breast (principal) | CPT/HCPCS: 77067 ==

== ENCOUNTER → 2021-01-30 | Outpatient (CLI) | payer BC, MEDICARE | LOC: MAMMO 10:18 | PROVIDERS: ATTEND Family Medicine | DX: N63.20 Unspecified lump in the left breast, unspecified quadrant (principal) ==

== ENCOUNTER → 2021-04-03 | Day surgery (SDC) | payer BC, MEDICARE ==
[2021-04-03 05:56] LABS: BASOPHILS # (AUTO) 0.1 (0.0-0.1); BASOPHILS % 0.7 % (0.0-1.0); EOSINOPHILS # (AUTO) 0.3 (0.0-0.4); EOSINOPHILS % 3.9 % (0.0-6.0); HEMATOCRIT 45.2 % (34.2-44.1); LYMPHOCYTES % 43.1 % (18.0-39.1); MEAN CORPUSCULAR HGB CONC 33.2 g/dL (31-35); MEAN CORPUSCULAR VOLUME 84.3 fL (81-99); MONOCYTES # (AUTO) 0.6 (0.2-0.8); MONOCYTES % 8.5 % (4.4-11.3); NEUTROPHILS % 43.5 % (38.7-80.0); PLATELET COUNT 97 x10e3/uL (140-360); RED BLOOD COUNT 5.36 x10e6/uL (3.6-5.1); RED CELL DISTRIBUTION WIDTH 12.9 % (11.7-14.4)
[2021-04-03 06:12] LABS: PARTIAL THROMBOPLASTIN TIME 30.4 seconds (23.8-35.5); PROTHROMBIN TIME 13.4 seconds (11.9-14.5)
[2021-04-03 07:24] VITALS: BP 110/52
== END | disposition home or self-care (01) ==
LOC: OR 06:06
PROVIDERS: ATTEND Physical Medicine & Rehabilitation Pain Medicine
DX: M70.62 Trochanteric bursitis, left hip (principal); M54.16 Radiculopathy, lumbar region; M48.061 Spinal stenosis, lumbar region without neurogenic claudication; M54.81 Occipital neuralgia; I44.0 Atrioventricular block, first degree; I10 Essential (primary) hypertension; I49.9 Cardiac arrhythmia, unspecified; K21.9 Gastro-esophageal reflux disease without esophagitis; F17.200 Nicotine dependence, unspecified, uncomplicated; Z88.6 Allergy status to analgesic agent; Z88.8 Allergy status to other drugs, medicaments and biological substances; Z01.810 Encounter for preprocedural cardiovascular examination; Z01.812 Encounter for preprocedural laboratory examination; Z20.822 Contact with and (suspected) exposure to COVID-19; Z91.81 History of falling; Z86.73 Personal history of transient ischemic attack (TIA), and cerebral infarction without residual deficits
CPT/HCPCS: 20610; 36415; 77002; 85025; 85610; 85730; 93005; U0002

== ENCOUNTER → 2021-08-28 | Day surgery (SDC) | payer BC, MEDICARE ==
[~2021-08-28] MED LIST changes: +DEXAMETHASONE SOD PHOS 10 MG/1 ML VIAL ONE; +FENTANYL CITRATE/PF 100MCG/2 ML INJ ONE; +IOPAMIDOL 200 MG/ML 20 ML VIAL IT ONE; +KETOROLAC TROME10 MG PO; +LIDOCAINE HCL 1% 30ML-PF VIAL ONE; +MIDAZOLAM HCL 2 MG/2 ML VIAL ONE; +POVIDONE IODINE 0.05% 0.05 % ML PO ONE; +PROPOFOL IV EMULSION 10 MG/ML 20 ML VIAL ONE
[2021-08-28 06:18] LABS: BASOPHILS # (AUTO) 0.1 (0.0-0.1); BASOPHILS % 0.8 % (0.0-1.0); EOSINOPHILS # (AUTO) 0.3 (0.0-0.4); EOSINOPHILS % 4.1 % (0.0-6.0); HEMATOCRIT 47.3 % (34.2-44.1); HEMOGLOBIN 15.6 g/dL (12.0-16.0); LYMPHOCYTES # (AUTO) 2.8 (1.0-3.2); LYMPHOCYTES % 37.9 % (18.0-39.1); MEAN CORPUSCULAR HEMOGLOBIN 28.3 pg (28-32); MEAN CORPUSCULAR VOLUME 85.7 fL (81-99); MONOCYTES # (AUTO) 0.7 (0.2-0.8); NEUTROPHILS # (AUTO) 3.5 (2.1-6.9); NEUTROPHILS % 47.9 % (38.7-80.0); PLATELET COUNT 121 x10e3/uL (140-360); RED BLOOD COUNT 5.52 x10e6/uL (3.6-5.1); RED CELL DISTRIBUTION WIDTH 13.3 % (11.7-14.4)
[2021-08-28 07:27] VITALS: BP 111/65
== END | disposition home or self-care (01) ==
LOC: OR 05:45
PROVIDERS: ATTEND Physical Medicine & Rehabilitation Pain Medicine
DX: M54.16 Radiculopathy, lumbar region (principal); M48.061 Spinal stenosis, lumbar region without neurogenic claudication; M54.81 Occipital neuralgia; M25.511 Pain in right shoulder; I10 Essential (primary) hypertension; I48.91 Unspecified atrial fibrillation; F41.9 Anxiety disorder, unspecified; Z88.6 Allergy status to analgesic agent; Z01.810 Encounter for preprocedural cardiovascular examination; Z01.812 Encounter for preprocedural laboratory examination; Z20.822 Contact with and (suspected) exposure to COVID-19; Z79.899 Other long term (current) drug therapy; Z91.81 History of falling; Z86.73 Personal history of transient ischemic attack (TIA), and cerebral infarction without residual deficits
CPT/HCPCS: 36415; 64483; 64484; 85025; 93005; J1100; J2001; J2250; J2704; J3010; Q9967; U0002; 77003

== ENCOUNTER → 2021-10-09 | Day surgery (SDC) | payer BC, MEDICARE ==
[~2021-10-09] MED LIST changes: -DEXAMETHASONE SOD PHOS 10 MG/1 ML VIAL ONE; -IOPAMIDOL 200 MG/ML 20 ML VIAL IT ONE; -LIDOCAINE HCL 1% 30ML-PF VIAL ONE; +LIDOCAINE HCL 2% LOCAL INJ 5 ML SDV VIAL INJ ONE; -POVIDONE IODINE 0.05% 0.05 % ML PO ONE
[2021-10-09 06:14] LABS: BASOPHILS % 0.8 % (0.0-1.0); EOSINOPHILS # (AUTO) 0.2 (0.0-0.4); EOSINOPHILS % 3.3 % (0.0-6.0); HEMATOCRIT 45.4 % (34.2-44.1); HEMOGLOBIN 15.4 g/dL (12.0-16.0); LYMPHOCYTES # (AUTO) 2.1 (1.0-3.2); LYMPHOCYTES % 41.3 % (18.0-39.1); MEAN CORPUSCULAR HEMOGLOBIN 28.7 pg (28-32); MEAN CORPUSCULAR HGB CONC 33.9 g/dL (31-35); MEAN CORPUSCULAR VOLUME 84.5 fL (81-99); MONOCYTES # (AUTO) 0.5 (0.2-0.8); MONOCYTES % 10.5 % (4.4-11.3); NEUTROPHILS # (AUTO) 2.3 (2.1-6.9); NEUTROPHILS % 43.9 % (38.7-80.0); PLATELET COUNT 93 x10e3/uL (140-360); RED BLOOD COUNT 5.37 x10e6/uL (3.6-5.1); RED CELL DISTRIBUTION WIDTH 13.2 % (11.7-14.4)
[2021-10-09 07:30] VITALS: BP 100/50
== END | disposition home or self-care (01) ==
LOC: OR 06:07
PROVIDERS: ATTEND Internal Medicine Gastroenterology
DX: K21.00 Gastro-esophageal reflux disease with esophagitis, without bleeding (principal); K29.50 Unspecified chronic gastritis without bleeding; I34.1 Nonrheumatic mitral (valve) prolapse; I10 Essential (primary) hypertension; F41.9 Anxiety disorder, unspecified; F17.210 Nicotine dependence, cigarettes, uncomplicated; Z88.6 Allergy status to analgesic agent; Z88.8 Allergy status to other drugs, medicaments and biological substances; Z91.041 Radiographic dye allergy status; Z01.812 Encounter for preprocedural laboratory examination; Z20.822 Contact with and (suspected) exposure to COVID-19; Z79.899 Other long term (current) drug therapy; Z86.73 Personal history of transient ischemic attack (TIA), and cerebral infarction without residual deficits; Z98.890 Other specified postprocedural states
CPT/HCPCS: 36415; 43239; 85025; J2001; J2250; J2704; J3010; U0002; 43450

== ENCOUNTER 2021-12-20 15:30 | Emergency (ER) | payer BC, MEDICARE ==
[~2021-12-20] VITALS: Ht 177.8 cm; Wt 113.9 kg
[~2021-12-20 15:30] MED LIST changes: -FENTANYL CITRATE/PF 100MCG/2 ML INJ ONE; -LIDOCAINE HCL 2% LOCAL INJ 5 ML SDV VIAL INJ ONE; -MIDAZOLAM HCL 2 MG/2 ML VIAL ONE; -PROPOFOL IV EMULSION 10 MG/ML 20 ML VIAL ONE
[2021-12-20 16:14] LABS: BASOPHILS % 0.6 % (0.0-1.0); EOSINOPHILS # (AUTO) 0.2 (0.0-0.4); EOSINOPHILS % 3.2 % (0.0-6.0); HEMATOCRIT 45.1 % (34.2-44.1); HEMOGLOBIN 14.7 g/dL (12.0-16.0); LYMPHOCYTES # (AUTO) 2.3 (1.0-3.2); MEAN CORPUSCULAR HEMOGLOBIN 28.4 pg (28-32); MEAN CORPUSCULAR HGB CONC 32.6 g/dL (31-35); MEAN CORPUSCULAR VOLUME 87.2 fL (81-99); MONOCYTES # (AUTO) 0.5 (0.2-0.8); NEUTROPHILS # (AUTO) 3.3 (2.1-6.9); NEUTROPHILS % 51.9 % (38.7-80.0); PLATELET COUNT 90 x10e3/uL (140-360); RED BLOOD COUNT 5.17 x10e6/uL (3.6-5.1); RED CELL DISTRIBUTION WIDTH 13.3 % (11.7-14.4)
[2021-12-20] MEDS ORDERED: ASPIRIN 325 MG TAB PO ONE (16:15)
[2021-12-20 16:19] LABS: INR 0.92; PROTHROMBIN TIME 13.2 seconds (11.9-14.5)
[2021-12-20 16:20] LABS: PARTIAL THROMBOPLASTIN TIME 29.3 seconds (23.8-35.5)
[2021-12-20] MEDS: SODIUM CHLORIDE FLUSH 10 ML SYR IV PRN ×2 (16:24→17:45)
[2021-12-20 16:26] LABS: ALBUMIN 3.2 g/dL (3.5-5.0); ALKALINE PHOSPHATASE 53 IU/L (40-150); BLOOD UREA NITROGEN 9 mg/dL (7-26); BUN/CREATININE RATIO 7 (6-25); CALCIUM 8.4 mg/dL (8.4-10.2); CARBON DIOXIDE 22 mmol/L (22-29); CHLORIDE 109 mmol/L (98-107); CREATININE, SERUM 1.33 mg/dL (0.57-1.11); GLUCOSE 105 mg/dL (74-118); SODIUM 142 mmol/L (136-145)
[2021-12-20 16:44] LABS: ALANINE AMINOTRANSFERASE < 6 IU/L (0-55)
[2021-12-20 17:54] LABS: CLARITY,URINE HAZY (CLEAR); COLOR,URINE YELLOW (YELLOW); KETONES,URINE NEGATIVE (NEGATIVE); LEUKOCYTE ESTERASE ,URINE NEGATIVE (NEGATIVE); NITRITE,URINE NEGATIVE (NEGATIVE); PROTEIN,URINE DIPSTICK NEGATIVE (NEGATIVE); URINE UROBILINOGEN 0.2 mg/dL (0.2 - 1)
[2021-12-20 17:55] LABS: AMPHETAMINES SCREEN,URINE NEGATIVE (NEGATIVE); BACTERIA,URINE FEW /HPF; BENZODIAZEPINES SCREEN,URINE POSITIVE (NEGATIVE); EPITHELIAL CELLS,URINE FEW /LPF; PHENCYCLIDINE SCREEN,URINE NEGATIVE (NEGATIVE); RBC,URINE 0-5 /HPF (0-5); WBC,URINE (MAN) 0-5 /HPF (0-5)
[2021-12-20 18:45] LABS: CREATINE KINASE 38 IU/L (29-168)
[2021-12-20 19:10] VITALS: BP 150/70
== END 2021-12-20 19:13 | disposition home or self-care (01) ==
LOC: ER 16:00
DX: R07.9 Chest pain, unspecified (principal); I11.0 Hypertensive heart disease with heart failure; I50.9 Heart failure, unspecified; I34.1 Nonrheumatic mitral (valve) prolapse; F41.9 Anxiety disorder, unspecified; Z88.8 Allergy status to other drugs, medicaments and biological substances; Z88.6 Allergy status to analgesic agent; Z91.041 Radiographic dye allergy status; Z20.822 Contact with and (suspected) exposure to COVID-19; Z79.899 Other long term (current) drug therapy
CPT/HCPCS: 36415; 71045; 80053; 80307; 81001; 82550; 82553; 83880; 84484; 85025; 85610; 85730; 93005; 94760; 99284; U0002

== ENCOUNTER 2022-02-02 11:37 | Inpatient (IN) | payer BC, MEDICARE ==
[2022-01-29 13:08] LABS: BASOPHILS # (AUTO) 0.1 (0.0-0.1); BASOPHILS % 0.9 % (0.0-1.0); EOSINOPHILS # (AUTO) 0.2 (0.0-0.4); EOSINOPHILS % 2.2 % (0.0-6.0); HEMATOCRIT 49.5 % (34.2-44.1); HEMOGLOBIN 15.9 g/dL (12.0-16.0); LYMPHOCYTES % 42.5 % (18.0-39.1); MEAN CORPUSCULAR HEMOGLOBIN 28.1 pg (28-32); MEAN CORPUSCULAR HGB CONC 32.1 g/dL (31-35); MEAN CORPUSCULAR VOLUME 87.6 fL (81-99); MONOCYTES # (AUTO) 0.8 (0.2-0.8); NEUTROPHILS # (AUTO) 4.4 (2.1-6.9); PLATELET COUNT 122 x10e3/uL (140-360); RED BLOOD COUNT 5.65 x10e6/uL (3.6-5.1); RED CELL DISTRIBUTION WIDTH 13.8 % (11.7-14.4)
[2022-01-29 13:22] LABS: INR 0.9
[2022-01-29 13:23] LABS: PARTIAL THROMBOPLASTIN TIME 26.1 seconds (23.8-35.5)
[2022-01-29 13:32] LABS: ALBUMIN 3.8 g/dL (3.5-5.0); ALBUMIN/GLOBULIN RATIO 1.1 (0.8-2.0); CALCIUM 8.9 mg/dL (8.4-10.2); CREATININE, SERUM 1.63 mg/dL (0.57-1.11)
[~2022-02-02] VITALS: Ht 177.8 cm; Wt 122.7 kg
[2022-02-02] VITALS (8 sets, daily range): BP systolic 106–123; BP diastolic 74–94
[~2022-02-02 11:37] MED LIST changes: +HEPARIN SOD/SOD CHLORIDE 1,000 ML ONE; +ONDANSETRON HCL INJ 2MG/ML 2ML 2 MG/ML VIAL ONE; +PAXIL20 MG PO; +PROMETHAZINE HCL (IM) 25 MG/ML VIAL IM ONE; +ROPIVACAINE 123 MG, EPINEPHRINE HCL 1:1000 1ML 0.25 MG, CLONIDINE HCL 0.04 MG, KETOROLA... INJ ONE; +SODIUM CHLORIDE 0.9% 250ML 250 ML ONE
[2022-02-02] MEDS ORDERED: FENTANYL CITRATE/PF 100MCG/2 ML INJ ONE (12:54)
[2022-02-02] MEDS ORDERED: MIDAZOLAM HCL 2 MG/2 ML VIAL ONE (12:54)
[2022-02-02] MEDS ORDERED: PHENYLEPHRINE HCL 1% 10 MG/ML VIAL ONE (13:09)
[2022-02-02] MEDS ORDERED: ONDANSETRON HCL INJ 2MG/ML 2ML 2 MG/ML VIAL ONE (13:09)
[2022-02-02] MEDS ORDERED: HYDROCORTISONE SOD SUCCINATE 100 MG VIAL ONE (13:09)
[2022-02-02] MEDS ORDERED: POVIDONE IODINE 0.05% 0.05 % ML PO ONE (13:09)
[2022-02-02] MEDS ORDERED: NEOSTIGMINE 1 MG/ML 10ML VIAL ONE (13:09)
[2022-02-02] MEDS ORDERED: GLYCOPYRROLATE INJ 0.2 MG/ML VIAL ONE (13:09)
[2022-02-02] MEDS ORDERED: SEVOFLURANE INHAL SOLN 250 ML PEN BTL ONE (13:09)
[2022-02-02] MEDS ORDERED: PROPOFOL IV EMULSION 10 MG/ML 20 ML VIAL ONE (13:09)
[2022-02-02] MEDS ORDERED: ACETAMINOPHEN 1000 MG/100 ML IV ONE (13:09)
[2022-02-02] MEDS ORDERED: LIDOCAINE HCL 2% LOCAL INJ 5 ML SDV VIAL INJ ONE (13:09)
[2022-02-02] MEDS ORDERED: NALOXONE HCL INJ 0.4 MG/ML AMP IV PRN (13:15)
[2022-02-02] MEDS ORDERED: ONDANSETRON HCL INJ 2MG/ML 2ML 2 MG/ML VIAL IV PRN (13:15)
[2022-02-02] MEDS: SODIUM CHLORIDE 0.9% 250ML IRRIG IR SCH ×3 (13:15→21:15)
[2022-02-02] MEDS: SODIUM CHLORIDE 0.9% 1000ML 1,000 ML IV SCH ×2 (13:15→17:26)
[2022-02-02] MEDS: HYDROMORPHONE 0.2MG/ML-SOD CHL 30ML PCA SYRINGE IV PRN ×2 (13:39→16:58)
[2022-02-02] MEDS ORDERED: ACETAMINOPHEN 1000 MG/100 ML IV PRN (18:00)
[2022-02-02 19:49] LABS: BASOPHILS % 0.1 % (0.0-1.0); HEMATOCRIT 47.3 % (34.2-44.1); HEMOGLOBIN 14.9 g/dL (12.0-16.0); LYMPHOCYTES # (AUTO) 1.3 (1.0-3.2); LYMPHOCYTES % 6.5 % (18.0-39.1); MEAN CORPUSCULAR HEMOGLOBIN 28.2 pg (28-32); MEAN CORPUSCULAR HGB CONC 31.5 g/dL (31-35); MEAN CORPUSCULAR VOLUME 89.4 fL (81-99); MONOCYTES # (AUTO) 1.2 (0.2-0.8); MONOCYTES % 5.8 % (4.4-11.3); NEUTROPHILS % 87.1 % (38.7-80.0); PLATELET COUNT 123 x10e3/uL (140-360); RED BLOOD COUNT 5.29 x10e6/uL (3.6-5.1); RED CELL DISTRIBUTION WIDTH 13.8 % (11.7-14.4)
[2022-02-02] MEDS ORDERED: PNEUMOCOCCAL VACCINE POLYVALENT 23 MCG/0.5 ML VIAL IM ONE (19:55)
[2022-02-02 20:09] LABS: ALBUMIN 3.4 g/dL (3.5-5.0); ALBUMIN/GLOBULIN RATIO 1.2 (0.8-2.0); ANION GAP 11.6 mmol/L (8-16); CALCIUM 8.1 mg/dL (8.4-10.2); CREATININE, SERUM 1.26 mg/dL (0.57-1.11)
[2022-02-02 20:11] LABS: POTASSIUM 5.6 mmol/L (3.5-5.1)
[2022-02-02] MEDS ORDERED: LORAZEPAM INJ 2 MG/ML VIAL IV PRN (21:00)
[2022-02-02] MEDS ORDERED: LACTATED RINGER S IV ONE (21:30)
[2022-02-03] VITALS (15 sets, daily range): BP systolic 104–139; BP diastolic 67–89
[2022-02-03] MEDS: SODIUM CHLORIDE 0.9% 250ML IRRIG IR SCH ×6 (01:15→21:15)
[2022-02-03] MEDS: SODIUM CHLORIDE 0.9% 1000ML 1,000 ML IV SCH ×3 (02:00→16:21)
[2022-02-03 08:35] LABS: BASOPHILS % 0.1 % (0.0-1.0); EOSINOPHILS # (AUTO) 0.1 (0.0-0.4); EOSINOPHILS % 0.5 % (0.0-6.0); HEMATOCRIT 44.9 % (34.2-44.1); LYMPHOCYTES # (AUTO) 1.6 (1.0-3.2); LYMPHOCYTES % 7.6 % (18.0-39.1); MEAN CORPUSCULAR HEMOGLOBIN 27.9 pg (28-32); MEAN CORPUSCULAR HGB CONC 31.2 g/dL (31-35); MEAN CORPUSCULAR VOLUME 89.4 fL (81-99); MONOCYTES # (AUTO) 2.2 (0.2-0.8); MONOCYTES % 10.1 % (4.4-11.3); NEUTROPHILS # (AUTO) 17.5 (2.1-6.9); NEUTROPHILS % 81.1 % (38.7-80.0); PLATELET COUNT 113 x10e3/uL (140-360); RED BLOOD COUNT 5.02 x10e6/uL (3.6-5.1); RED CELL DISTRIBUTION WIDTH 13.9 % (11.7-14.4)
[2022-02-03 09:04] LABS: ANION GAP 11.4 mmol/L (8-16); CALCIUM 7.7 mg/dL (8.4-10.2); CREATININE, SERUM 1.04 mg/dL (0.57-1.11); POTASSIUM 4.4 mmol/L (3.5-5.1)
[2022-02-03] MEDS: HYDROMORPHONE 0.2MG/ML-SOD CHL 30ML PCA SYRINGE IV PRN (09:12)
[2022-02-03] MEDS: ONDANSETRON HCL INJ 2MG/ML 2ML 2 MG/ML VIAL IV PRN (09:37)
[2022-02-03] MEDS ORDERED: ROPIVACAINE 123 MG, EPINEPHRINE HCL 1:1000 1ML 0.25 MG, CLONIDINE HCL 0.04 MG, KETOROLA... INJ ONE ×5 (11:45)
[2022-02-03 12:36] LABS: EOSINOPHILS % (MANUAL) 1 % (0-7); LYMPHOCYTES % (MANUAL) 7 % (19-48); MONOCYTES % (MANUAL) 5 % (3.4-9.0); NEUTROPHILS % (MANUAL) 85 % (40-74); PLATELET ESTIMATE SLIGHTLY DECREASED; PLATELET MORPHOLOGY COMMENT NORMAL; RBC MORPHOLOGY COMMENT NORMAL
[2022-02-04] VITALS (7 sets, daily range): BP systolic 106–166; BP diastolic 60–95
[2022-02-04] MEDS: SODIUM CHLORIDE 0.9% 250ML IRRIG IR SCH ×8 (01:15→20:52)
[2022-02-04] MEDS: SODIUM CHLORIDE 0.9% 1000ML 1,000 ML IV SCH ×3 (02:38→21:15)
[2022-02-04 09:23] LABS: BASOPHILS # (AUTO) 0.1 (0.0-0.1); BASOPHILS % 0.2 % (0.0-1.0); EOSINOPHILS # (AUTO) 0.1 (0.0-0.4); EOSINOPHILS % 0.3 % (0.0-6.0); HEMATOCRIT 40.5 % (34.2-44.1); HEMOGLOBIN 12.8 g/dL (12.0-16.0); LYMPHOCYTES # (AUTO) 1.8 (1.0-3.2); LYMPHOCYTES % 6.9 % (18.0-39.1); MEAN CORPUSCULAR HEMOGLOBIN 28.1 pg (28-32); MEAN CORPUSCULAR HGB CONC 31.6 g/dL (31-35); MONOCYTES # (AUTO) 2.9 (0.2-0.8); MONOCYTES % 10.9 % (4.4-11.3); NEUTROPHILS # (AUTO) 21.4 (2.1-6.9); PLATELET COUNT 120 x10e3/uL (140-360); RED BLOOD COUNT 4.55 x10e6/uL (3.6-5.1); RED CELL DISTRIBUTION WIDTH 13.8 % (11.7-14.4)
[2022-02-04 09:41] LABS: ANION GAP 10.3 mmol/L (8-16); CALCIUM 8.2 mg/dL (8.4-10.2); POTASSIUM 4.3 mmol/L (3.5-5.1)
[2022-02-04 11:09] LABS: BAND NEUTROPHILS % (MANUAL) 3 %; EOSINOPHILS % (MANUAL) 2 % (0-7); LYMPHOCYTES % (MANUAL) 4 % (19-48); MONOCYTES % (MANUAL) 9 % (3.4-9.0); NEUTROPHILS % (MANUAL) 81 % (40-74)
[2022-02-04 11:13] LABS: PLATELET ESTIMATE SLIGHTLY DECREASED
[2022-02-04 11:14] LABS: PLATELET MORPHOLOGY COMMENT NORMAL
[2022-02-04] MEDS: ONDANSETRON HCL INJ 2MG/ML 2ML 2 MG/ML VIAL IV PRN (11:15)
[2022-02-04] MEDS ORDERED: HYDROMORPHONE 0.2MG/ML-SOD CHL 30ML PCA SYRINGE IV PRN (19:00)
[2022-02-04] MEDS: BISACODYL 10 MG SUPP PR SCH (21:00)
[2022-02-05] VITALS (7 sets, daily range): BP systolic 140–172; BP diastolic 74–93
[2022-02-05] MEDS: SODIUM CHLORIDE 0.9% 1000ML 1,000 ML IV SCH ×2 (02:32→21:15)
[2022-02-05 07:10] LABS: BASOPHILS % 0.2 % (0.0-1.0); EOSINOPHILS # (AUTO) 0.3 (0.0-0.4); EOSINOPHILS % 1.2 % (0.0-6.0); HEMATOCRIT 41.1 % (34.2-44.1); HEMOGLOBIN 12.8 g/dL (12.0-16.0); LYMPHOCYTES # (AUTO) 1.8 (1.0-3.2); LYMPHOCYTES % 8.1 % (18.0-39.1); MEAN CORPUSCULAR HEMOGLOBIN 28.2 pg (28-32); MEAN CORPUSCULAR HGB CONC 31.1 g/dL (31-35); MEAN CORPUSCULAR VOLUME 90.5 fL (81-99); MONOCYTES # (AUTO) 2.4 (0.2-0.8); MONOCYTES % 11.1 % (4.4-11.3); NEUTROPHILS # (AUTO) 17.1 (2.1-6.9); NEUTROPHILS % 78.7 % (38.7-80.0); PLATELET COUNT 127 x10e3/uL (140-360); RED BLOOD COUNT 4.54 x10e6/uL (3.6-5.1)
[2022-02-05 07:30] LABS: ANION GAP 15.9 mmol/L (8-16); CALCIUM 8.9 mg/dL (8.4-10.2); CREATININE, SERUM 0.98 mg/dL (0.57-1.11); POTASSIUM 3.9 mmol/L (3.5-5.1)
[2022-02-05] MEDS: BISACODYL 10 MG SUPP PR SCH (08:00)
[2022-02-05] MEDS: ONDANSETRON HCL INJ 2MG/ML 2ML 2 MG/ML VIAL IV PRN (08:12)
[2022-02-05 08:36] LABS: EOSINOPHILS % (MANUAL) 3 % (0-7); LYMPHOCYTES % (MANUAL) 9 % (19-48); MONOCYTES % (MANUAL) 8 % (3.4-9.0); NEUTROPHILS % (MANUAL) 80 % (40-74)
[2022-02-05 08:37] LABS: PLATELET ESTIMATE SLIGHTLY DECREASED; PLATELET MORPHOLOGY COMMENT NORMAL; RBC MORPHOLOGY COMMENT NORMAL
[2022-02-05] MEDS ORDERED: ACETAMINOPHEN 325 MG TAB PO PRN (11:45)
[2022-02-05] MEDS ORDERED: KETOROLAC TROMETHAMINE 30 MG/ML VIAL IV PRN (13:15)
[2022-02-05] MEDS ORDERED: PROMETHAZINE HCL 25 MG TAB PO PRN (13:15)
[2022-02-05] MEDS ORDERED: CEPACOL SORE THROAT LOZENGES PO PRN (19:00)
[2022-02-05] MEDS: ALPRAZOLAM 1 MG TAB PO PRN (20:56)
[2022-02-06] VITALS (7 sets, daily range): BP systolic 142–159; BP diastolic 73–87
[2022-02-06] MEDS: SODIUM CHLORIDE 0.9% 1000ML 1,000 ML IV SCH ×3 (05:15→14:59)
[2022-02-06] MEDS: ONDANSETRON HCL INJ 2MG/ML 2ML 2 MG/ML VIAL IV PRN (12:03)
[2022-02-06] MEDS: ALPRAZOLAM 1 MG TAB PO PRN (20:00)
[2022-02-06] MEDS: BISACODYL 10 MG SUPP PR SCH (21:00)
[2022-02-07] VITALS: BP 139/68
[2022-02-07] MEDS: SODIUM CHLORIDE 0.9% 1000ML 1,000 ML IV SCH ×2 (01:36→14:27)
[2022-02-07 04:00] VITALS: BP 152/93
[2022-02-07] MEDS: ONDANSETRON HCL INJ 2MG/ML 2ML 2 MG/ML VIAL IV PRN ×4 (05:06→20:02)
[2022-02-07] MEDS: HYDROMORPHONE 1MG/1ML INJ IV PRN ×4 (05:06→20:02)
[2022-02-07] MEDS: BISACODYL 10 MG SUPP PR SCH (08:00)
[2022-02-07] MEDS: ALPRAZOLAM 1 MG TAB PO PRN ×2 (08:49→22:27)
[2022-02-07 09:13] VITALS: BP 164/82
[2022-02-07 09:43] VITALS: BP 164/82
[2022-02-07 15:56] VITALS: BP 154/92
[2022-02-07] MEDS ORDERED: HYDROCODONE/APAP 7.5MG-325MG 1 EA TAB PO PRN (16:30)
[2022-02-07] MEDS: LOSARTAN POTASSIUM 25 MG TAB PO SCH (17:30)
[2022-02-07] MEDS: CARVEDILOL 12.5 MG TAB PO SCH (17:30)
[2022-02-07 20:00] VITALS: BP 135/90
[2022-02-08] VITALS: BP 147/81
[2022-02-08 01:39] VITALS: BP 147/81
[2022-02-08] MEDS: ONDANSETRON HCL INJ 2MG/ML 2ML 2 MG/ML VIAL IV PRN (03:53)
[2022-02-08] MEDS: HYDROMORPHONE 1MG/1ML INJ IV PRN (03:54)
[2022-02-08 04:00] VITALS: BP 138/89
[2022-02-08 05:35] LABS: BASOPHILS # (AUTO) 0.1 (0.0-0.1); BASOPHILS % 0.6 % (0.0-1.0); EOSINOPHILS # (AUTO) 1.6 (0.0-0.4); EOSINOPHILS % 12.6 % (0.0-6.0); HEMATOCRIT 33.8 % (34.2-44.1); HEMOGLOBIN 10.6 g/dL (12.0-16.0); LYMPHOCYTES # (AUTO) 1.7 (1.0-3.2); LYMPHOCYTES % 13.6 % (18.0-39.1); MEAN CORPUSCULAR HEMOGLOBIN 27.8 pg (28-32); MEAN CORPUSCULAR HGB CONC 31.4 g/dL (31-35); MEAN CORPUSCULAR VOLUME 88.7 fL (81-99); MONOCYTES # (AUTO) 2.2 (0.2-0.8); MONOCYTES % 17.7 % (4.4-11.3); NEUTROPHILS # (AUTO) 6.8 (2.1-6.9); NEUTROPHILS % 54.9 % (38.7-80.0); PLATELET COUNT 185 x10e3/uL (140-360); RED BLOOD COUNT 3.81 x10e6/uL (3.6-5.1); RED CELL DISTRIBUTION WIDTH 13.6 % (11.7-14.4)
[2022-02-08 05:57] LABS: ALBUMIN 2.2 g/dL (3.5-5.0); ALBUMIN/GLOBULIN RATIO 0.6 (0.8-2.0); ANION GAP 10.3 mmol/L (8-16); CALCIUM 8.3 mg/dL (8.4-10.2); CREATININE, SERUM 0.91 mg/dL (0.57-1.11); POTASSIUM 3.3 mmol/L (3.5-5.1)
[2022-02-08 06:15] LABS: BAND NEUTROPHILS % (MANUAL) 1 %; EOSINOPHILS % (MANUAL) 13 % (0-7); LYMPHOCYTES % (MANUAL) 11 % (19-48); MONOCYTES % (MANUAL) 6 % (3.4-9.0); NEUTROPHILS % (MANUAL) 68 % (40-74); PLATELET ESTIMATE ADEQUATE; PLATELET MORPHOLOGY COMMENT FEW GIANT
[2022-02-08 06:16] LABS: RBC MORPHOLOGY COMMENT NORMAL
[2022-02-08 08:16] VITALS: BP 124/83
[2022-02-08] MEDS: CARVEDILOL 12.5 MG TAB PO SCH (08:27)
[2022-02-08] MEDS: LOSARTAN POTASSIUM 25 MG TAB PO SCH (08:27)
[2022-02-08] MEDS ORDERED: PAROXETINE HCL 20 MG TAB PO SCH (09:00)
[2022-02-08 12:06] VITALS: BP 126/81
[2022-02-08 12:11] VITALS: BP 126/81
[2022-02-08] MEDS: ALPRAZOLAM 1 MG TAB PO PRN (13:30)
== END 2022-02-08 16:37 | disposition home or self-care (01) | DRG 327 ==
LOC: OR 11:37 → PACU V 13:15 → ICU 15:11 → MED/SURG 02-03 14:02 → MED/SURG2 02-07 05:43
PROVIDERS: ADMIT Surgery; ATTEND Surgery
PROC: 0BQT0ZZ Repair Diaphragm, Open Approach (ICD-10-PCS; principal; 2022-02-02 10:11)
PROC: 0DV40ZZ Restriction of Esophagogastric Junction, Open Approach (ICD-10-PCS; 2022-02-02 10:11)
PROC: 07TP0ZZ Resection of Spleen, Open Approach (ICD-10-PCS; 2022-02-02 10:11)
DX: K44.9 Diaphragmatic hernia without obstruction or gangrene (principal); D69.3 Immune thrombocytopenic purpura; F13.20 Sedative, hypnotic or anxiolytic dependence, uncomplicated; I10 Essential (primary) hypertension; F41.9 Anxiety disorder, unspecified; E66.9 Obesity, unspecified; Z68.38 Body mass index [BMI] 38.0-38.9, adult; K21.9 Gastro-esophageal reflux disease without esophagitis; Z20.822 Contact with and (suspected) exposure to COVID-19; Z86.73 Personal history of transient ischemic attack (TIA), and cerebral infarction without residual deficits; Z79.52 Long term (current) use of systemic steroids
CPT/HCPCS: 0223U; 36415; 80048; 80053; 82948; 85025; 85610; 85730; 86900; 88305; 94799; 96361; J0171; J0690; J1170; J1720; J1885; J2001; J2250; J2370; J2405; J2550; J2710; J2795; J3010; J7030; J7050; P9034

== ENCOUNTER 2022-09-02 16:44 | Observation (INO) | payer BC, MEDICARE ==
[~2022-09-02] VITALS: Ht 177.8 cm; Wt 122.5 kg
[~2022-09-02 16:44] MED LIST changes: -HEPARIN SOD/SOD CHLORIDE 1,000 ML ONE; -ONDANSETRON HCL INJ 2MG/ML 2ML 2 MG/ML VIAL ONE; -PROMETHAZINE HCL (IM) 25 MG/ML VIAL IM ONE; -ROPIVACAINE 123 MG, EPINEPHRINE HCL 1:1000 1ML 0.25 MG, CLONIDINE HCL 0.04 MG, KETOROLA... INJ ONE; -SODIUM CHLORIDE 0.9% 250ML 250 ML ONE
[2022-09-02] MEDS ORDERED: SODIUM CHLORIDE 0.9% 1000ML 1,000 ML IV STA (16:59)
[2022-09-02] MEDS ORDERED: FENTANYL CITRATE/PF 100MCG/2 ML INJ IV PRN (17:15)
[2022-09-02] MEDS: ONDANSETRON HCL INJ 2MG/ML 2ML 2 MG/ML VIAL IV PRN (17:29)
[2022-09-02 18:13] LABS: BASOPHILS # (AUTO) 0.1 (0.0-0.1); BASOPHILS % 0.8 % (0.0-1.0); EOSINOPHILS # (AUTO) 0.4 (0.0-0.4); EOSINOPHILS % 3.3 % (0.0-6.0); HEMATOCRIT 44.2 % (34.2-44.1); HEMOGLOBIN 14.1 g/dL (12.0-16.0); LYMPHOCYTES # (AUTO) 4.8 (1.0-3.2); LYMPHOCYTES % 37.3 % (18.0-39.1); MEAN CORPUSCULAR HEMOGLOBIN 28.4 pg (28-32); MEAN CORPUSCULAR HGB CONC 31.9 g/dL (31-35); MEAN CORPUSCULAR VOLUME 89.1 fL (81-99); MONOCYTES # (AUTO) 1.6 (0.2-0.8); MONOCYTES % 12.3 % (4.4-11.3); NEUTROPHILS # (AUTO) 5.9 (2.1-6.9); PLATELET COUNT 114 x10e3/uL (140-360); RED BLOOD COUNT 4.96 x10e6/uL (3.6-5.1); RED CELL DISTRIBUTION WIDTH 14.5 % (11.7-14.4)
[2022-09-02 18:18] LABS: INR 1.02; PROTHROMBIN TIME 13.6 seconds (11.9-14.5)
[2022-09-02 18:26] LABS: ALBUMIN 3.5 g/dL (3.5-5.0); ALBUMIN/GLOBULIN RATIO 1.3 (0.8-2.0); ANION GAP 12.2 mmol/L (8-16); CREATININE, SERUM 1.15 mg/dL (0.57-1.11); POTASSIUM 4.2 mmol/L (3.5-5.1)
[2022-09-02] MEDS ORDERED: Morphine 4mg INJECTION 4 MG/ML INJ IV PRN (18:30)
[2022-09-02] MEDS ORDERED: ONDANSETRON HCL INJ 2MG/ML 2ML 2 MG/ML VIAL IV PRN (18:30)
[2022-09-02 18:43] LABS: CLARITY,URINE CLEAR (CLEAR); COLOR,URINE YELLOW (YELLOW); LEUKOCYTE ESTERASE ,URINE TRACE (NEGATIVE); NITRITE,URINE NEGATIVE (NEGATIVE); PROTEIN,URINE DIPSTICK NEGATIVE (NEGATIVE)
[2022-09-02 18:44] LABS: KETONES,URINE NEGATIVE (NEGATIVE); URINE UROBILINOGEN 0.2 mg/dL (0.2 - 1)
[2022-09-02 18:49] LABS: WBC,URINE (MAN) 0-5 /HPF (0-5)
[2022-09-02 20:00] VITALS: BP_SYST 124; BP_SYST 143; BP_SYST 145; BP_DIAS 105; BP_DIAS 73; BP_DIAS 86
[2022-09-02] MEDS: SODIUM CHLORIDE 0.9% 1000ML 1,000 ML IV SCH (20:01)
[2022-09-02] MEDS ORDERED: ASPIRIN 81 MG CHEW TAB PO ONE (20:15)
[2022-09-02 20:31] LABS: CREATINE KINASE MB 1.4 ng/mL (0-5.0); EOSINOPHILS % (MANUAL) 2 % (0-7); LYMPHOCYTES % (MANUAL) 37 % (19-48); MONOCYTES % (MANUAL) 9 % (3.4-9.0); NEUTROPHILS % (MANUAL) 50 % (40-74)
[2022-09-02 20:32] LABS: PLATELET ESTIMATE MODERATELY DECREASED; PLATELET MORPHOLOGY COMMENT MODERATE LARGE; RBC MORPHOLOGY COMMENT NORMAL
[2022-09-02] MEDS: HYDROMORPHONE 1MG/1ML INJ IV PRN (20:56)
[2022-09-02 22:08] VITALS: BP 143/86
[2022-09-02] MEDS ORDERED: LOSARTAN POTASS25 MG PO (22:08)
[2022-09-02] MEDS ORDERED: AMLODIPINE BESYL5 MG PO (22:08)
[2022-09-03] VITALS (7 sets, daily range): BP systolic 90–148; BP diastolic 61–86
[2022-09-03] MEDS: SODIUM CHLORIDE 0.9% 1000ML 1,000 ML IV SCH ×3 (04:10→18:41)
[2022-09-03] MEDS: ONDANSETRON HCL INJ 2MG/ML 2ML 2 MG/ML VIAL IV PRN ×3 (04:27→20:12)
[2022-09-03] MEDS: HYDROMORPHONE 1MG/1ML INJ IV PRN ×3 (04:27→20:13)
[2022-09-03 05:00] LABS: BASOPHILS # (AUTO) 0.1 (0.0-0.1); EOSINOPHILS # (AUTO) 0.5 (0.0-0.4); EOSINOPHILS % 5.2 % (0.0-6.0); HEMATOCRIT 41.8 % (34.2-44.1); HEMOGLOBIN 13.2 g/dL (12.0-16.0); LYMPHOCYTES # (AUTO) 4.3 (1.0-3.2); LYMPHOCYTES % 41.9 % (18.0-39.1); MEAN CORPUSCULAR HEMOGLOBIN 28.7 pg (28-32); MEAN CORPUSCULAR HGB CONC 31.6 g/dL (31-35); MEAN CORPUSCULAR VOLUME 90.9 fL (81-99); MONOCYTES # (AUTO) 1.5 (0.2-0.8); MONOCYTES % 14.9 % (4.4-11.3); NEUTROPHILS # (AUTO) 3.8 (2.1-6.9); NEUTROPHILS % 36.8 % (38.7-80.0); PLATELET COUNT 135 x10e3/uL (140-360); RED CELL DISTRIBUTION WIDTH 14.6 % (11.7-14.4)
[2022-09-03 05:19] LABS: ANION GAP 11.7 mmol/L (8-16); CALCIUM 8.4 mg/dL (8.4-10.2); CREATININE, SERUM 1.01 mg/dL (0.57-1.11); POTASSIUM 3.7 mmol/L (3.5-5.1)
[2022-09-03 05:39] LABS: CREATINE KINASE 76 IU/L (29-168)
[2022-09-03 06:50] LABS: EOSINOPHILS % (MANUAL) 1 % (0-7); LYMPHOCYTES % (MANUAL) 40 % (19-48); MONOCYTES % (MANUAL) 6 % (3.4-9.0); NEUTROPHILS % (MANUAL) 51 % (40-74)
[2022-09-03 06:52] LABS: PLATELET ESTIMATE SLIGHTLY DECREASED; PLATELET MORPHOLOGY COMMENT NORMAL; RBC MORPHOLOGY COMMENT NORMAL
[2022-09-03 14:38] LABS: CREATINE KINASE MB 0.6 ng/mL (0-5.0)
[2022-09-04 00:42] VITALS: BP 119/74
[2022-09-04] MEDS: SODIUM CHLORIDE 0.9% 1000ML 1,000 ML IV SCH ×2 (02:41→05:15)
[2022-09-04 04:00] VITALS: BP 135/77
[2022-09-04] MEDS: ONDANSETRON HCL INJ 2MG/ML 2ML 2 MG/ML VIAL IV PRN (05:33)
[2022-09-04] MEDS: HYDROMORPHONE 1MG/1ML INJ IV PRN (05:33)
[2022-09-04 08:26] VITALS: BP 151/80
[2022-09-04 08:34] VITALS: BP 151/80
[2022-09-04] MEDS ORDERED: PROPOFOL IV EMULSION 10 MG/ML 20 ML VIAL ONE (10:53)
[2022-09-04] MEDS ORDERED: LIDOCAINE HCL 2% LOCAL INJ 5 ML SDV VIAL INJ ONE (10:53)
[2022-09-04] MEDS ORDERED: POVIDONE IODINE 0.05% 0.05 % ML PO ONE (10:53)
[2022-09-04 12:06] VITALS: BP 152/93
[2022-09-04 13:05] VITALS: BP 141/73
[2022-09-04] MEDS ORDERED: FENTANYL CITRATE/PF 100MCG/2 ML INJ ONE (13:30)
== END 2022-09-04 15:40 | disposition home or self-care (01) ==
LOC: ER 17:00 → ERHOLD 18:21 → INTOOBSV 18:21 → MED/SURG 21:38
PROVIDERS: ADMIT Family Medicine; ATTEND Family Medicine
DX: K92.0 Hematemesis (principal); K29.30 Chronic superficial gastritis without bleeding; K21.00 Gastro-esophageal reflux disease with esophagitis, without bleeding; R07.9 Chest pain, unspecified; I10 Essential (primary) hypertension; D72.829 Elevated white blood cell count, unspecified; F41.9 Anxiety disorder, unspecified; I34.1 Nonrheumatic mitral (valve) prolapse; R53.81 Other malaise; M54.2 Cervicalgia; M54.9 Dorsalgia, unspecified; Z88.8 Allergy status to other drugs, medicaments and biological substances; Z88.6 Allergy status to analgesic agent; Z91.041 Radiographic dye allergy status; Z20.822 Contact with and (suspected) exposure to COVID-19; Z79.899 Other long term (current) drug therapy; Z90.81 Acquired absence of spleen; Z86.73 Personal history of transient ischemic attack (TIA), and cerebral infarction without residual deficits; Z98.890 Other specified postprocedural states
CPT/HCPCS: 36415 ×2; 43239; 71045; 74176; 80048; 80053; 81001; 82550 ×2; 82553 ×2; 83690; 84484 ×2; 85025 ×2; 85610; 88305; 88342; 94799; 99284; C9113 ×3; G0378 ×3; J1170 ×3; J2001; J2405 ×3; J2704; J3010 ×2; J7030 ×3; U0002; 88312

== ENCOUNTER → 2022-10-19 | Day surgery (SDC) | payer BC, MEDICARE ==
[2022-10-16 12:34] LABS: BASOPHILS # (AUTO) 0.1 (0.0-0.1); BASOPHILS % 0.8 % (0.0-1.0); EOSINOPHILS # (AUTO) 0.6 (0.0-0.4); EOSINOPHILS % 5.1 % (0.0-6.0); HEMATOCRIT 46.4 % (34.2-44.1); LYMPHOCYTES # (AUTO) 3.9 (1.0-3.2); LYMPHOCYTES % 33.6 % (18.0-39.1); MEAN CORPUSCULAR HEMOGLOBIN 28.6 pg (28-32); MEAN CORPUSCULAR HGB CONC 32.3 g/dL (31-35); MEAN CORPUSCULAR VOLUME 88.5 fL (81-99); MONOCYTES # (AUTO) 1.4 (0.2-0.8); MONOCYTES % 12.4 % (4.4-11.3); NEUTROPHILS # (AUTO) 5.5 (2.1-6.9); NEUTROPHILS % 47.8 % (38.7-80.0); PLATELET COUNT 149 x10e3/uL (140-360); RED BLOOD COUNT 5.24 x10e6/uL (3.6-5.1); RED CELL DISTRIBUTION WIDTH 13.6 % (11.7-14.4)
[2022-10-16 12:45] LABS: ALBUMIN 3.5 g/dL (3.5-5.0); ALBUMIN/GLOBULIN RATIO 1.1 (0.8-2.0); ANION GAP 14.3 mmol/L (8-16); CALCIUM 9.1 mg/dL (8.4-10.2); CREATININE, SERUM 1.22 mg/dL (0.57-1.11); POTASSIUM 4.3 mmol/L (3.5-5.1)
[~2022-10-19] MED LIST changes: +AMLODIPINE BESYL5 MG PO; +ATORVASTATIN CA20 MG PO; +BUPROPION HCL75 MG PO; +FENTANYL CITRATE/PF 100MCG/2 ML INJ ONE; +LACTATED RINGER'S 1,000 ML ONE; +LIDOCAINE HCL 2% LOCAL INJ 5 ML SDV VIAL INJ ONE; +MIDAZOLAM HCL 2 MG/2 ML VIAL ONE; +POVIDONE IODINE 0.05% 0.05 % ML PO ONE; +PROPOFOL IV EMULSION 10 MG/ML 20 ML VIAL ONE
[2022-10-19 09:05] VITALS: BP 148/88
== END | disposition home or self-care (01) ==
LOC: OR 07:42
PROVIDERS: ATTEND Surgery
DX: K29.00 Acute gastritis without bleeding (principal); K22.2 Esophageal obstruction; K21.00 Gastro-esophageal reflux disease with esophagitis, without bleeding; I10 Essential (primary) hypertension; M54.2 Cervicalgia; M54.9 Dorsalgia, unspecified; R07.9 Chest pain, unspecified; I34.1 Nonrheumatic mitral (valve) prolapse; Z88.8 Allergy status to other drugs, medicaments and biological substances; Z88.6 Allergy status to analgesic agent; Z91.041 Radiographic dye allergy status; Z01.810 Encounter for preprocedural cardiovascular examination; Z01.812 Encounter for preprocedural laboratory examination; Z79.899 Other long term (current) drug therapy; Z86.73 Personal history of transient ischemic attack (TIA), and cerebral infarction without residual deficits
CPT/HCPCS: 36415; 43249; 80053; 85025; 93005; C1726; J2001; J2250; J2704; J3010; J7121; 43239

== ENCOUNTER → 2022-10-30 | Outpatient (CLI) | payer BC, MEDICARE ==
[~2022-10-30] MED LIST changes: -FENTANYL CITRATE/PF 100MCG/2 ML INJ ONE; -LACTATED RINGER'S 1,000 ML ONE; -LIDOCAINE HCL 2% LOCAL INJ 5 ML SDV VIAL INJ ONE; -MIDAZOLAM HCL 2 MG/2 ML VIAL ONE; -POVIDONE IODINE 0.05% 0.05 % ML PO ONE; -PROPOFOL IV EMULSION 10 MG/ML 20 ML VIAL ONE
== END ==
LOC: MRI 10:24
PROVIDERS: ATTEND Family Medicine
DX: Z12.31 Encounter for screening mammogram for malignant neoplasm of breast (principal); R51.9 Headache, unspecified; M54.2 Cervicalgia
CPT/HCPCS: 70551; 72141; 77067

== ENCOUNTER → 2023-05-04 | Outpatient (REF) | payer BC, MEDICARE | LOC: RAD 15:56 | PROVIDERS: ATTEND Family Medicine | DX: I80.02 Phlebitis and thrombophlebitis of superficial vessels of left lower extremity (principal) | CPT/HCPCS: 93971 ==

== ENCOUNTER → 2024-02-15 | Day surgery (SDC) | payer BC, MEDICARE ==
[2024-02-11 12:29] LABS: BASOPHILS # (AUTO) 0.1 (0.0-0.1); BASOPHILS % 0.9 % (0.0-1.0); EOSINOPHILS # (AUTO) 0.5 (0.0-0.4); EOSINOPHILS % 5.3 % (0.0-6.0); HEMATOCRIT 49.2 % (34.2-44.1); HEMOGLOBIN 16.2 g/dL (12.0-16.0); LYMPHOCYTES # (AUTO) 4.4 (1.0-3.2); LYMPHOCYTES % 43.2 % (18.0-39.1); MEAN CORPUSCULAR HGB CONC 32.9 g/dL (31-35); MEAN CORPUSCULAR VOLUME 91.1 fL (81-99); MONOCYTES # (AUTO) 1.2 (0.2-0.8); MONOCYTES % 12.1 % (4.4-11.3); NEUTROPHILS # (AUTO) 3.9 (2.1-6.9); NEUTROPHILS % 38.4 % (38.7-80.0); PLATELET COUNT 125 x10e3/uL (140-360); RED CELL DISTRIBUTION WIDTH 13.3 % (11.7-14.4)
[~2024-02-15] MED LIST changes: +DEXAMETHASONE SOD PHOS INJ 4 MG/ML SDV ONE; +FAMOTIDINE 20 MG/2 ML VIAL IV ONE; +FENTANYL CITRATE/PF 100MCG/2 ML INJ ONE; +LIDOCAINE 2%/ EPINEPHRINE 20ML MDV ONE; +LIDOCAINE HCL 2% LOCAL INJ 5 ML SDV VIAL INJ ONE; +MIDAZOLAM HCL 2 MG/2 ML VIAL ONE; +ONDANSETRON HCL INJ 2MG/ML 2ML 2 MG/ML VIAL ONE; +PROPOFOL IV EMULSION 10 MG/ML 20 ML VIAL ONE; +ROPIVACAINE 0.5% 5 MG/ML 30 ML SDV ONE; +SEVOFLURANE INHAL SOLN 250 ML PEN BTL ONE; +TUMS PO
[2024-02-15] MEDS: CEFAZOLIN SODIUM 2 GM ONE (06:37)
[2024-02-15] MEDS: LACTATED RINGER'S 1,000 ML ONE (06:38)
[2024-02-15 07:49] VITALS: TEMP 97.3
[2024-02-15] MEDS: FENTANYL CITRATE/PF 100MCG/2 ML INJ ONE (08:29)
[2024-02-15 08:55] VITALS: BP 160/90; PULSE 60; RESP 16; O2SAT 96
== END | disposition home or self-care (01) ==
LOC: OR 05:56
PROVIDERS: ATTEND Orthopaedic Surgery
DX: M77.11 Lateral epicondylitis, right elbow (principal); I10 Essential (primary) hypertension; I34.1 Nonrheumatic mitral (valve) prolapse; E78.5 Hyperlipidemia, unspecified; D69.3 Immune thrombocytopenic purpura; K21.9 Gastro-esophageal reflux disease without esophagitis; F41.9 Anxiety disorder, unspecified; F17.200 Nicotine dependence, unspecified, uncomplicated; Z88.6 Allergy status to analgesic agent; Z91.041 Radiographic dye allergy status; Z01.810 Encounter for preprocedural cardiovascular examination; Z01.812 Encounter for preprocedural laboratory examination; Z79.899 Other long term (current) drug therapy; Z86.73 Personal history of transient ischemic attack (TIA), and cerebral infarction without residual deficits
CPT/HCPCS: 24359; 36415; 85025; 93005; J1100; J2001 ×2; J2250; J2405; J2704; J2795; J3010; J7121

== ENCOUNTER 2024-02-24 18:18 | Emergency (ER) | payer BC, MEDICARE ==
[~2024-02-24] VITALS: Ht 177.8 cm; Wt 108.9 kg
[~2024-02-24 18:18] MED LIST changes: -DEXAMETHASONE SOD PHOS INJ 4 MG/ML SDV ONE; -FAMOTIDINE 20 MG/2 ML VIAL IV ONE; -FENTANYL CITRATE/PF 100MCG/2 ML INJ ONE; -LIDOCAINE 2%/ EPINEPHRINE 20ML MDV ONE; -LIDOCAINE HCL 2% LOCAL INJ 5 ML SDV VIAL INJ ONE; -MIDAZOLAM HCL 2 MG/2 ML VIAL ONE; -ONDANSETRON HCL INJ 2MG/ML 2ML 2 MG/ML VIAL ONE; -PROPOFOL IV EMULSION 10 MG/ML 20 ML VIAL ONE; -ROPIVACAINE 0.5% 5 MG/ML 30 ML SDV ONE; -SEVOFLURANE INHAL SOLN 250 ML PEN BTL ONE
[2024-02-24 19:07] VITALS: TEMP 98.2
[2024-02-24 21:15] VITALS: PULSE 79; RESP 18; O2SAT 97
[2024-02-24] MEDS ORDERED: ELIQUIS5 MG PO (21:16)
== END 2024-02-24 21:15 | disposition home or self-care (01) ==
LOC: ER 18:47
DX: M79.631 Pain in right forearm (principal); I82.611 Acute embolism and thrombosis of superficial veins of right upper extremity; I10 Essential (primary) hypertension; K21.9 Gastro-esophageal reflux disease without esophagitis; E78.00 Pure hypercholesterolemia, unspecified; I34.1 Nonrheumatic mitral (valve) prolapse; F41.9 Anxiety disorder, unspecified; Z86.73 Personal history of transient ischemic attack (TIA), and cerebral infarction without residual deficits; Z98.84 Bariatric surgery status
CPT/HCPCS: 93971; 99283

== ENCOUNTER 2024-03-05 17:00 | Emergency (ER) | payer BC, MEDICARE ==
[~2024-03-05] VITALS: Ht 177.8 cm; Wt 108.9 kg
[~2024-03-05 17:00] MED LIST changes: +ELIQUIS5 MG PO
[2024-03-05 17:13] VITALS: TEMP 98.6
[2024-03-05 17:45] LABS: BASOPHILS # (AUTO) 0.1 (0.0-0.1); EOSINOPHILS # (AUTO) 0.7 (0.0-0.4); EOSINOPHILS % 6.9 % (0.0-6.0); HEMATOCRIT 47.1 % (34.2-44.1); HEMOGLOBIN 15.3 g/dL (12.0-16.0); LYMPHOCYTES # (AUTO) 4.8 (1.0-3.2); LYMPHOCYTES % 49.4 % (18.0-39.1); MEAN CORPUSCULAR HGB CONC 32.5 g/dL (31-35); MEAN CORPUSCULAR VOLUME 89.2 fL (81-99); MONOCYTES # (AUTO) 1.3 (0.2-0.8); NEUTROPHILS # (AUTO) 2.8 (2.1-6.9); NEUTROPHILS % 29.6 % (38.7-80.0); PLATELET COUNT 122 x10e3/uL (140-360); RED BLOOD COUNT 5.28 x10e6/uL (3.6-5.1); RED CELL DISTRIBUTION WIDTH 13.2 % (11.7-14.4); WHITE BLOOD COUNT 9.61 x10e3/uL (4.8-10.8)
[2024-03-05 18:03] LABS: ALANINE AMINOTRANSFERASE 7 IU/L (0-55); ALBUMIN 3.4 g/dL (3.5-5.0); ALBUMIN/GLOBULIN RATIO 1.1 (0.8-2.0); ALKALINE PHOSPHATASE 56 IU/L (40-150); ANION GAP 13.2 mmol/L (8-16); BILIRUBIN,TOTAL 0.4 mg/dL (0.2-1.2); BLOOD UREA NITROGEN 9 mg/dL (7-26); BUN/CREATININE RATIO 7 (6-25); CALCIUM 9.1 mg/dL (8.4-10.2); CARBON DIOXIDE 22 mmol/L (22-29); CHLORIDE 109 mmol/L (98-107); EST GLOMERULAR FILTRATION RATE 48 ML/MIN (>=60); GLUCOSE 93 mg/dL (74-118); POTASSIUM 4.2 mmol/L (3.5-5.1); SODIUM 140 mmol/L (136-145); TOTAL PROTEIN 6.4 g/dL (6.5-8.1)
[2024-03-05 18:15] LABS: TROPONIN I < 0.001 ng/mL (0-0.300)
[2024-03-05] MEDS: HYDRALAZINE HCL 20 MG/ML VIAL IV ONE (19:00)
[2024-03-05] MEDS: ONDANSETRON HCL INJ 2MG/ML 2ML 2 MG/ML VIAL IV STA (20:02)
[2024-03-05] MEDS: Morphine 4mg INJECTION 4 MG/ML INJ IV STA (20:03)
[2024-03-05] MEDS: DIPHENHYDRAMINE HCL INJ 50 MG/ML VIAL IV STA ×2 (20:55→20:59)
[2024-03-05] MEDS: METHYLPREDNISOLONE SOD SUCC 125 MG/2ML VIAL IV STA (20:59)
[2024-03-05 21:20] VITALS: BP 163/102
[2024-03-05] MEDS: HYDRALAZINE HCL 20 MG/ML VIAL IV STA (21:20)
[2024-03-05] MEDS ORDERED: SODIUM CHLORIDE 0.9% 1000ML 1,000 ML ONE (21:21)
[2024-03-05] MEDS: SODIUM CHLORIDE 0.9% 1000ML 1,000 ML IV ONE (21:35)
[2024-03-05] MEDS ORDERED: IOPAMIDOL 370 MG/ML 100 ML INFUS..BTL INJ ONE (22:32)
[2024-03-05] MEDS ORDERED: EPINEPHRINE HCL 1:1000 1ML 1 MG/ML AMP ONE (22:47)
[2024-03-06 02:00] VITALS: PULSE 72; RESP 15; O2SAT 94
== END 2024-03-06 02:17 | disposition home or self-care (01) ==
LOC: ER 17:08
DX: R06.02 Shortness of breath (principal); R07.89 Other chest pain; J90 Pleural effusion, not elsewhere classified; K46.9 Unspecified abdominal hernia without obstruction or gangrene
CPT/HCPCS: 36415; 71045; 71260; 80053; 83880; 84484; 85025; 93005; 93971; 99284; J0360; J1200; J2270; J2405; J2919; J7030; Q9967; J0171

== ENCOUNTER 2024-08-04 07:34 | Inpatient (IN) | payer MEDICARE, OTHER ==
[2024-08-01 09:15] LABS: BASOPHILS # (AUTO) 0.1 (0.0-0.1); BASOPHILS % 1.1 % (0.0-1.0); EOSINOPHILS # (AUTO) 0.7 (0.0-0.4); EOSINOPHILS % 6.4 % (0.0-6.0); HEMATOCRIT 50.8 % (34.2-44.1); HEMOGLOBIN 15.5 g/dL (12.0-16.0); LYMPHOCYTES # (AUTO) 4.5 (1.0-3.2); LYMPHOCYTES % 39.8 % (18.0-39.1); MEAN CORPUSCULAR HEMOGLOBIN 29.6 pg (28-32); MEAN CORPUSCULAR HGB CONC 30.5 g/dL (31-35); MEAN CORPUSCULAR VOLUME 97.1 fL (81-99); MONOCYTES # (AUTO) 1.3 (0.2-0.8); MONOCYTES % 11.3 % (4.4-11.3); NEUTROPHILS # (AUTO) 4.7 (2.1-6.9); PLATELET COUNT 162 x10e3/uL (140-360); RED BLOOD COUNT 5.23 x10e6/uL (3.6-5.1); RED CELL DISTRIBUTION WIDTH 13.8 % (11.7-14.4); WHITE BLOOD COUNT 11.33 x10e3/uL (4.8-10.8)
[2024-08-01 09:28] LABS: INR 0.92; PROTHROMBIN TIME 12.9 seconds (11.9-14.5)
[2024-08-01 09:29] LABS: PARTIAL THROMBOPLASTIN TIME 27.8 seconds (23.8-35.5)
[2024-08-01 09:35] LABS: ANION GAP 15.8 mmol/L (8-16); CALCIUM 9.3 mg/dL (8.4-10.2); CREATININE, SERUM 1.46 mg/dL (0.57-1.11); POTASSIUM 4.8 mmol/L (3.5-5.1)
[~2024-08-04] VITALS: Ht 177.8 cm; Wt 114.9 kg
[2024-08-04] MEDS: LACTATED RINGER'S 1,000 ML ONE (08:06)
[2024-08-04] MEDS: ONDANSETRON HCL INJ 2MG/ML 2ML 2 MG/ML VIAL ONE (09:18)
[2024-08-04] MEDS ORDERED: LIDOCAINE HCL 2% LOCAL INJ 5 ML SDV VIAL INJ ONE (09:55)
[2024-08-04] MEDS ORDERED: SEVOFLURANE INHAL SOLN 250 ML PEN BTL ONE (09:55)
[2024-08-04] MEDS ORDERED: PROPOFOL IV EMULSION 10 MG/ML 20 ML VIAL ONE (09:55)
[2024-08-04] MEDS ORDERED: MIDAZOLAM HCL 2 MG/2 ML VIAL ONE (09:55)
[2024-08-04] MEDS ORDERED: FENTANYL CITRATE/PF 100MCG/2 ML INJ ONE (09:55)
[2024-08-04] MEDS ORDERED: ROCURONIUM BROMIDE 0 ML IV ONE (10:21)
[2024-08-04] MEDS ORDERED: ROCURONIUM BROMIDE 1 ML IV ONE (10:22)
[2024-08-04] MEDS ORDERED: DEXAMETHASONE SOD PHOS INJ 4 MG/ML SDV ONE ×2 (11:22)
[2024-08-04] MEDS ORDERED: METOCLOPRAMIDE HCL 10 MG/2ML VIAL ONE (11:22)
[2024-08-04] MEDS ORDERED: FAMOTIDINE 20 MG/2 ML VIAL IV ONE (11:22)
[2024-08-04] MEDS ORDERED: GLYCOPYRROLATE INJ 0.2 MG/ML VIAL ONE ×2 (11:28→11:43)
[2024-08-04] MEDS ORDERED: EPHEDRINE SULFATE INJ 50 MG/ML VIAL ONE (11:31)
[2024-08-04] MEDS ORDERED: SUGAMMADEX SODIUM 200 MG/2 ML VIAL IV ONE (12:41)
[2024-08-04] MEDS ORDERED: ACETAMINOPHEN 1000 MG/100 ML 100 ML IV ONE (12:57)
[2024-08-04] MEDS ORDERED: NALOXONE HCL INJ 0.4 MG/ML AMP IV PRN (13:30)
[2024-08-04] MEDS ORDERED: ACETAMINOPHEN 1000 MG/100 ML IV PRN (13:30)
[2024-08-04] MEDS: HYDROMORPHONE 0.2MG/ML-SOD CHL 30ML PCA SYRINGE IV PRN (14:37)
[2024-08-04 15:00] VITALS: BP 135/79; PULSE 76; RESP 17; TEMP 97.3; O2SAT 97
[2024-08-04] MEDS: BUPIVACAINE LIPOSOME/PF 266 MG/20 ML IJ ONE (15:05)
[2024-08-04 15:57] VITALS: PULSE 74; RESP 20; O2SAT 97
[2024-08-04 16:49] VITALS: BP 129/77; PULSE 63; RESP 15; TEMP 97.6; O2SAT 93
[2024-08-04] MEDS ORDERED: LOSARTAN POTASSIUM 100 MG TAB PO SCH (17:00)
[2024-08-04] MEDS: ALPRAZOLAM 1 MG TAB PO SCH (17:45)
[2024-08-04] MEDS: LOSARTAN POTASSIUM 100 MG TAB PO SCH (17:46)
[2024-08-04] MEDS: CARVEDILOL 12.5 MG TAB PO SCH (17:46)
[2024-08-04] MEDS: SODIUM CHLORIDE 0.9% 1000ML 1,000 ML IV SCH (17:46)
[2024-08-04 18:53] VITALS: BP 129/77; PULSE 63; RESP 15; TEMP 97.6; O2SAT 93
[2024-08-04 19:41] VITALS: PULSE 70; RESP 18; O2SAT 96
[2024-08-04 20:00] VITALS: BP 103/66; PULSE 64; RESP 18; TEMP 97.7; O2SAT 95
[2024-08-05] VITALS (10 sets, daily range): BP systolic 103–129; BP diastolic 61–79; PULSE 54–76; RESP 18–20; TEMP 97.5–98.3; O2SAT 93–100
[2024-08-05 07:12] LABS: BASOPHILS # (AUTO) 0.1 (0.0-0.1); BASOPHILS % 0.2 % (0.0-1.0); EOSINOPHILS % 0.1 % (0.0-6.0); HEMATOCRIT 47.4 % (34.2-44.1); HEMOGLOBIN 14.9 g/dL (12.0-16.0); LYMPHOCYTES # (AUTO) 2.2 (1.0-3.2); LYMPHOCYTES % 8.9 % (18.0-39.1); MEAN CORPUSCULAR HEMOGLOBIN 29.2 pg (28-32); MEAN CORPUSCULAR HGB CONC 31.4 g/dL (31-35); MEAN CORPUSCULAR VOLUME 92.9 fL (81-99); MONOCYTES # (AUTO) 1.2 (0.2-0.8); MONOCYTES % 4.8 % (4.4-11.3); NEUTROPHILS # (AUTO) 21.1 (2.1-6.9); NEUTROPHILS % 85.2 % (38.7-80.0); PLATELET COUNT 155 x10e3/uL (140-360); RED CELL DISTRIBUTION WIDTH 13.8 % (11.7-14.4); WHITE BLOOD COUNT 24.83 x10e3/uL (4.8-10.8)
[2024-08-05 07:54] LABS: ANION GAP 14.2 mmol/L (8-16); CALCIUM 8.8 mg/dL (8.4-10.2); CREATININE, SERUM 1.25 mg/dL (0.57-1.11)
[2024-08-05 07:58] LABS: POTASSIUM 5.2 mmol/L (3.5-5.1)
[2024-08-05] MEDS: ONDANSETRON HCL INJ 2MG/ML 2ML 2 MG/ML VIAL IV PRN (08:12)
[2024-08-05] MEDS: DULOXETINE HCL 30 MG DELAYED RELEASE PO SCH (08:13)
[2024-08-05 13:37] LABS: BAND NEUTROPHILS % (MANUAL) 7 %; LYMPHOCYTES % (MANUAL) 8 % (19-48); MONOCYTES % (MANUAL) 5 % (3.4-9.0); NEUTROPHILS % (MANUAL) 80 % (40-74); PLATELET ESTIMATE ADEQUATE; PLATELET MORPHOLOGY COMMENT NORMAL
[2024-08-05 13:38] LABS: RBC MORPHOLOGY COMMENT NORMAL
[2024-08-06] VITALS (7 sets, daily range): BP systolic 108–147; BP diastolic 64–80; PULSE 57–64; RESP 17–19; TEMP 98.1–98.3; O2SAT 94–99
[2024-08-06 05:48] LABS: BASOPHILS # (AUTO) 0.1 (0.0-0.1); BASOPHILS % 0.3 % (0.0-1.0); HEMATOCRIT 41.6 % (34.2-44.1); HEMOGLOBIN 13.1 g/dL (12.0-16.0); LYMPHOCYTES # (AUTO) 4.8 (1.0-3.2); LYMPHOCYTES % 19.5 % (18.0-39.1); MEAN CORPUSCULAR HEMOGLOBIN 29.8 pg (28-32); MEAN CORPUSCULAR HGB CONC 31.5 g/dL (31-35); MEAN CORPUSCULAR VOLUME 94.5 fL (81-99); MONOCYTES # (AUTO) 2.8 (0.2-0.8); MONOCYTES % 11.6 % (4.4-11.3); NEUTROPHILS # (AUTO) 16.6 (2.1-6.9); NEUTROPHILS % 67.8 % (38.7-80.0); PLATELET COUNT 134 x10e3/uL (140-360); RED CELL DISTRIBUTION WIDTH 14.1 % (11.7-14.4); WHITE BLOOD COUNT 24.46 x10e3/uL (4.8-10.8)
[2024-08-06 06:16] LABS: ANION GAP 12.5 mmol/L (8-16); CALCIUM 8.6 mg/dL (8.4-10.2); CREATININE, SERUM 1.07 mg/dL (0.57-1.11); POTASSIUM 4.5 mmol/L (3.5-5.1)
[2024-08-06] MEDS: HYDROCODONE/APAP 7.5MG-325MG 1 EA TAB PO PRN (12:43)
== END 2024-08-06 20:20 | disposition home or self-care (01) | DRG 354 ==
LOC: OR 07:34 → PACU V 13:53 → MED/SURG2 14:45
PROVIDERS: ADMIT Surgery; ATTEND Surgery
PROC: 0WUF0JZ Supplement Abdominal Wall with Synthetic Substitute, Open Approach (ICD-10-PCS; principal; 2024-08-04 11:09)
DX: K43.6 Other and unspecified ventral hernia with obstruction, without gangrene (principal); D69.3 Immune thrombocytopenic purpura; I10 Essential (primary) hypertension; Z90.81 Acquired absence of spleen; Z90.49 Acquired absence of other specified parts of digestive tract
CPT/HCPCS: 36415; 80048; 85025; 85610; 85730; 93005; 94799; C1781; J0690; J1100; J2003; J2250; J2405; J2470; J2765; J7030

== ENCOUNTER 2024-12-21 19:30 | Observation (INO) | payer OTHER, MEDICARE ==
[~2024-12-21] VITALS: Ht 177.8 cm; Wt 109.3 kg
[2024-12-21 19:40] VITALS: TEMP 97.6
[2024-12-21 20:31] LABS: HEMOGLOBIN 14.4 g/dL (12.0-16.0); MEAN CORPUSCULAR HEMOGLOBIN 28.9 pg (28-32); MEAN CORPUSCULAR HGB CONC 32.7 g/dL (31-35); MEAN CORPUSCULAR VOLUME 88.2 fL (81-99); PLATELET COUNT 130 x10e3/uL (140-360); RED BLOOD COUNT 4.99 x10e6/uL (3.6-5.1); RED CELL DISTRIBUTION WIDTH 14.1 % (11.7-14.4); WHITE BLOOD COUNT 18.98 x10e3/uL (4.8-10.8)
[2024-12-21 20:53] LABS: ALBUMIN 3.2 g/dL (3.5-5.0); ALBUMIN/GLOBULIN RATIO 0.9 (0.8-2.0); ANION GAP 16.6 mmol/L (8-16); BILIRUBIN,TOTAL 0.4 mg/dL (0.2-1.2); CALCIUM 8.9 mg/dL (8.4-10.2); CREATININE, SERUM 1.42 mg/dL (0.57-1.11); POTASSIUM 3.6 mmol/L (3.5-5.1); TOTAL PROTEIN 6.6 g/dL (6.5-8.1)
[2024-12-21 21:01] LABS: EOSINOPHILS % (MANUAL) 4 % (0-7); LYMPHOCYTES % (MANUAL) 34 % (19-48); MONOCYTES % (MANUAL) 10 % (3.4-9.0); NEUTROPHILS % (MANUAL) 52 % (40-74)
[2024-12-21 21:02] LABS: PLATELET ESTIMATE SLIGHTLY DECREASED; PLATELET MORPHOLOGY COMMENT NORMAL; RBC MORPHOLOGY COMMENT NORMAL
[2024-12-21] MEDS: ONDANSETRON HCL INJ 2MG/ML 2ML 2 MG/ML VIAL IV STA (21:18)
[2024-12-21] MEDS: MECLIZINE HCL 12.5 MG TAB PO ONE (21:18)
[2024-12-21 21:31] LABS: BILIRUBIN,URINE NEGATIVE (NEGATIVE); CLARITY,URINE SL CLOUDY (CLEAR); COLOR,URINE YELLOW (YELLOW); GLUCOSE, URINE NEGATIVE (NEGATIVE); KETONES,URINE NEGATIVE (NEGATIVE); LEUKOCYTE ESTERASE ,URINE TRACE (NEGATIVE); NITRITE,URINE POSITIVE (NEGATIVE); PH,URINE 6 (5 - 7); PROTEIN,URINE DIPSTICK NEGATIVE (NEGATIVE); URINE UROBILINOGEN 0.2 mg/dL (0.2 - 1)
[2024-12-21 21:40] LABS: BACTERIA,URINE MODERATE /HPF; EPITHELIAL CELLS,URINE FEW /LPF; WBC,URINE (MAN) 0-5 /HPF (0-5)
[2024-12-21] MEDS ORDERED: Morphine 4mg INJECTION 4 MG/ML INJ IV ONE (22:00)
[2024-12-21 22:30] VITALS: PULSE 69; RESP 17
[2024-12-21] MEDS: HYDROMORPHONE 1MG/1ML INJ IV STA (22:37)
[2024-12-22] VITALS (9 sets, daily range): BP systolic 123–129; BP diastolic 67–90; PULSE 65–76; RESP 16–18; TEMP 97.7–98.8; O2SAT 96–100
[2024-12-22] MEDS: ONDANSETRON HCL INJ 2MG/ML 2ML 2 MG/ML VIAL IV PRN (03:58)
[2024-12-22] MEDS: HYDROMORPHONE 1MG/1ML INJ IV PRN (03:58)
[2024-12-22 05:27] LABS: BASOPHILS # (AUTO) 0.1 (0.0-0.1); BASOPHILS % 0.9 % (0.0-1.0); EOSINOPHILS % 6.4 % (0.0-6.0); HEMATOCRIT 46.3 % (34.2-44.1); HEMOGLOBIN 14.7 g/dL (12.0-16.0); LYMPHOCYTES # (AUTO) 5.3 (1.0-3.2); LYMPHOCYTES % 34.7 % (18.0-39.1); MEAN CORPUSCULAR HEMOGLOBIN 28.9 pg (28-32); MEAN CORPUSCULAR HGB CONC 31.7 g/dL (31-35); MONOCYTES # (AUTO) 1.9 (0.2-0.8); MONOCYTES % 12.1 % (4.4-11.3); NEUTROPHILS # (AUTO) 6.9 (2.1-6.9); NEUTROPHILS % 45.2 % (38.7-80.0); PLATELET COUNT 133 x10e3/uL (140-360); RED BLOOD COUNT 5.09 x10e6/uL (3.6-5.1); RED CELL DISTRIBUTION WIDTH 14.3 % (11.7-14.4); WHITE BLOOD COUNT 15.27 x10e3/uL (4.8-10.8)
[2024-12-22 05:57] LABS: ALBUMIN/GLOBULIN RATIO 0.9 (0.8-2.0); ANION GAP 14.1 mmol/L (8-16); BILIRUBIN,TOTAL 0.4 mg/dL (0.2-1.2); CALCIUM 8.6 mg/dL (8.4-10.2); CREATININE, SERUM 1.21 mg/dL (0.57-1.11); POTASSIUM 4.1 mmol/L (3.5-5.1); TOTAL PROTEIN 6.4 g/dL (6.5-8.1)
[2024-12-22 06:17] LABS: TROPONIN I < 0.001 ng/mL (0-0.300)
[2024-12-22 06:20] LABS: CREATINE KINASE 25 IU/L (29-168)
[2024-12-22 17:16] LABS: TROPONIN I 0.005 ng/mL (0-0.300)
== END 2024-12-22 20:00 | disposition home or self-care (01) ==
LOC: ER 20:21 → ERHOLD 22:16 → MED/SURG 23:42
PROVIDERS: ADMIT Family Medicine; ATTEND Family Medicine
DX: R42 Dizziness and giddiness (principal); I12.9 Hypertensive chronic kidney disease with stage 1 through stage 4 chronic kidney disease, or unspecified chronic kidney disease; N18.9 Chronic kidney disease, unspecified; N17.9 Acute kidney failure, unspecified; R07.9 Chest pain, unspecified; E78.5 Hyperlipidemia, unspecified; L30.9 Dermatitis, unspecified; T38.0X5A Adverse effect of glucocorticoids and synthetic analogues, initial encounter; D72.829 Elevated white blood cell count, unspecified; Z72.0 Tobacco use; Z86.73 Personal history of transient ischemic attack (TIA), and cerebral infarction without residual deficits; K21.9 Gastro-esophageal reflux disease without esophagitis; F41.9 Anxiety disorder, unspecified; M54.9 Dorsalgia, unspecified; G89.29 Other chronic pain
CPT/HCPCS: 36415 ×2; 70450; 70544; 70551; 71045; 80053 ×2; 81001; 82550; 83880; 84484 ×2; 85007; 85025; 85027; 93005; 94799; 99252; 99284; G0378 ×2; J1171 ×2; J2405 ×2; J8597

== ENCOUNTER → 2025-02-15 | Day surgery (SDC) | payer OTHER, MEDICARE ==
[~2025-02-15] MED LIST changes: +MECLIZINE HCL12.5 MG PO; +ONDANSETRON ODT4 MG SL
[2025-02-15 10:36] LABS: BASOPHILS % 0.9 % (0.0-1.0); EOSINOPHILS % 4.9 % (0.0-6.0); LYMPHOCYTES % 36.6 % (18.0-39.1); MONOCYTES % 12.1 % (4.4-11.3); NEUTROPHILS % 45.2 % (38.7-80.0); RED CELL DISTRIBUTION WIDTH 13.9 % (11.7-14.4)
[2025-02-15] MEDS: LACTATED RINGER'S 1,000 ML ONE (10:57)
[2025-02-15 11:08] LABS: EST GLOMERULAR FILTRATION RATE 62.0 ML/MIN (>=60)
[2025-02-15 11:46] VITALS: TEMP 97.3
[2025-02-15 12:15] VITALS: BP 132/80; PULSE 67; RESP 16; O2SAT 98
== END | disposition home or self-care (01) ==
LOC: OR 09:16
PROVIDERS: ATTEND Surgery
DX: K92.0 Hematemesis (principal); K29.50 Unspecified chronic gastritis without bleeding; K21.9 Gastro-esophageal reflux disease without esophagitis; D69.3 Immune thrombocytopenic purpura; I10 Essential (primary) hypertension; E66.9 Obesity, unspecified; F41.9 Anxiety disorder, unspecified; F17.200 Nicotine dependence, unspecified, uncomplicated; Z91.09 Other allergy status, other than to drugs and biological substances; Z79.899 Other long term (current) drug therapy; Z86.73 Personal history of transient ischemic attack (TIA), and cerebral infarction without residual deficits
CPT/HCPCS: 36415; 43239; 80053; 85025; 88305; 88342

== ENCOUNTER 2025-04-11 12:40 | Observation (INO) | payer OTHER, MEDICARE ==
[~2025-04-11] VITALS: Ht 177.8 cm; Wt 109.3 kg
[2025-04-11 12:48] VITALS: PULSE 71; RESP 17; TEMP 98.8
[2025-04-11] MEDS ORDERED: KETOROLAC TROMETHAMINE 30 MG/ML VIAL IV STA (13:32)
[2025-04-11] MEDS ORDERED: ASPIRIN 81 MG CHEW TAB PO ONE (13:45)
[2025-04-11] MEDS ORDERED: ACETAMINOPHEN 325 MG TAB PO ONE (14:00)
[2025-04-11 14:25] LABS: BASOPHILS % 1.1 % (0.0-1.0); EOSINOPHILS % 5.6 % (0.0-6.0); LYMPHOCYTES % 45.7 % (18.0-39.1); MONOCYTES % 13.1 % (4.4-11.3); NEUTROPHILS % 34.3 % (38.7-80.0); RED CELL DISTRIBUTION WIDTH 13.5 % (11.7-14.4)
[2025-04-11 14:49] LABS: EST GLOMERULAR FILTRATION RATE 54.0 ML/MIN (>=60)
[2025-04-11 15:40] VITALS: PULSE 74; RESP 18; O2SAT 96
[2025-04-11 20:01] LABS: BASOPHILS % (MANUAL) 1 % (0-1.5); EOSINOPHILS % (MANUAL) 3 % (0-7); LYMPHOCYTES % (MANUAL) 44 % (19-48); MONOCYTES % (MANUAL) 11 % (3.4-9.0); NEUTROPHILS % (MANUAL) 35 % (40-74); REACTIVE LYMPHOCYTES 6
[2025-04-11 20:02] LABS: PLATELET MORPHOLOGY COMMENT MANY LARGE
[2025-04-11 20:03] LABS: PLATELET ESTIMATE ADEQUATE; RBC MORPHOLOGY COMMENT NORMAL
== END 2025-04-11 16:30 | disposition home or self-care (01) ==
LOC: ER 12:46 → ERHOLD 15:06 → UNDOADMOB 15:06 → ER 15:46
PROVIDERS: ADMIT Family Medicine; ATTEND Family Medicine
DX: R07.9 Chest pain, unspecified (principal); I10 Essential (primary) hypertension; K21.9 Gastro-esophageal reflux disease without esophagitis; F41.9 Anxiety disorder, unspecified; Z86.73 Personal history of transient ischemic attack (TIA), and cerebral infarction without residual deficits; M54.9 Dorsalgia, unspecified; E78.00 Pure hypercholesterolemia, unspecified; I34.1 Nonrheumatic mitral (valve) prolapse; Z72.0 Tobacco use; Z98.84 Bariatric surgery status
CPT/HCPCS: 36415; 71045; 73502; 80053; 83690; 84484; 85025; 93005; 94799; 99283; G0378